=== PATIENT | female | born 1950 | race Caucasian/White ===

== ENCOUNTER 2024-09-10 12:55 | Inpatient (IN) | payer OTHER, SELFPAY ==
[2024-09-10] VITALS (9 sets, daily range): BP systolic 116–153; BP diastolic 46–72; PULSE 69–82; RESP 16–19; TEMP 36.7–37.3; O2SAT 97–100; BMI 32.3
--- NOTE | ~2024-09-10 | CT_ITS ---
EXAMINATION: CT HEAD WITHOUT CONTRAST CLINICAL INFORMATION: trauma, hit head 4 days ago, on anticoagulation COMPARISON: None available. TECHNIQUE: Contiguous axial imaging was performed from the skull base to vertex without intravenous administration of contrast. This CT examination was performed using dose optimization techniques as appropriate, variously including the following: *Automated exposure control *Adjustment of mA and/or kV according to patient size (this includes techniques or standardized protocols for targeted exams where dose is matched to indication/reason for exam; i.e. extremities or head) *Use of iterative reconstruction technique DLP: 558.69 mGy-cm FINDINGS: Bony calvarium is intact. Traumatic deformity of the left zygomatic arch. Skull base is intact. No acute intracranial hemorrhage, mass effect, midline shift, hydrocephalus or herniation. Ardon-white matter differentiation is normal. Prominence of the extra-axial spaces spaces cerebral sulci and ventricles likely central volume loss. Bilateral multifocal patchy and confluent deep periventricular white matter hypodensities involving mostly the supratentorial compartment. Sellar/suprasellar region demonstrated no gross masses. Craniocervical junction is intact and normal. Intracranial vascular calcifications. No air-fluid levels in the included paranasal sinuses. Tympanic cavities and mastoid air cells are aerated. High riding internal jugular bulb, right-sided. CT/CT head/brain wo IV con IMPRESSION: No acute fracture, bony calvarium. No acute intracranial hemorrhage. Probable small vessel occlusive disease. Electronically signed by: Dom Espinal MD 09/10/2024 03:28 PM [facility]
--- NOTE | ~2024-09-10 | XR_ITS ---
EXAMINATION: XR CHEST CLINICAL INFORMATION: fall, left sided pain COMPARISON: None available. TECHNIQUE: 2 views of the chest were obtained. FINDINGS: No consolidation, pleural effusion or pneumothorax. Pulmonary reticular pattern. Cardiomediastinal silhouette is normal in size. Vascular clips in the lateral right breast shadow. Multilevel thoracic stenosis. XR/XR chest 2V IMPRESSION: No acute airspace disease. Probable right lumpectomy Electronically signed by: Dom Espinal MD 09/10/2024 03:18 PM EST
--- NOTE | ~2024-09-10 | XR_ITS ---
EXAMINATION: XR FOOT, RIGHT CLINICAL INFORMATION: pain at toes COMPARISON: None available. TECHNIQUE: AP, lateral, and oblique views of the right foot. FINDINGS: Cortical irregularity and disruption involving the tip of the proximal phalanges in the second and third toes. The metatarsals and tarsal bones are intact. The calcaneus is intact. The patellar bone is intact. The first toe phalanges are intact. XR/XR foot RT min 3V IMPRESSION: Comminuted displaced fractures tip of the proximal phalanges in the second and third toes. Electronically signed by: Dom Espinal MD 09/10/2024 03:21 PM [facility]
--- NOTE | ~2024-09-10 | CT_ITS ---
EXAMINATION: CT ABDOMEN AND PELVIS WITH CONTRAST CLINICAL INFORMATION: Bruising on left side COMPARISON: None available. TECHNIQUE: Multidetector volumetric images were obtained from the superior aspect of the liver through the pubic symphysis following administration 85 mL of Omnipaque 350 intravenous contrast. Sagittal and coronal reformatted images were obtained on the technologist's workstation. Oral contrast: No This CT examination was performed using dose optimization techniques as appropriate, variously including the following: *Automated exposure control *Adjustment of mA and/or kV according to patient size (this includes techniques or standardized protocols for targeted exams where dose is matched to indication/reason for exam; i.e. extremities or head) *Use of iterative reconstruction technique DLP: 711.33 mGy-cm FINDINGS: LUNG BASES: The visualized lung bases are unremarkable. LIVER, GALLBLADDER, AND BILIARY TREE: The liver is normal in size, shape, and attenuation. No mild diffuse intrahepatic bile duct dilation. The common bile duct measures up to 1 cm. The gallbladder is surgically absent. PANCREAS: Unremarkable. SPLEEN: Unremarkable. ADRENAL GLANDS: Unremarkable. KIDNEYS AND URETERS: The kidneys are normal in size, shape, and attenuation. No hydronephrosis, hydroureter, or calculi seen. No perinephric stranding. BLADDER: Unremarkable. GASTROINTESTINAL TRACT: Severe colonic diverticulosis. No evidence of diverticulitis. Moderate stool burden. The large and small bowel are normal in caliber. ABDOMINAL WALL: Left flank hematoma measuring 12.7 x 6.3 x 8.3. Focus of contrast enhancement within the deep portion of the hematoma. Nerve stimulator in place in the right flank. LYMPH NODES: Normal. VASCULAR: Unremarkable. PELVIC VISCERA: Small volume of reactive fluid layering in the pelvis. OSSEOUS STRUCTURES: Unremarkable. CT/CT abdomen pelvis w IV con IMPRESSION: 1. Left flank hematoma measuring up to 12.7 cm. Focus of contrast enhancement within the deep portion of the hematoma concerning for active bleeding. 2. Mild diffuse intrahepatic bile duct dilation. The common bile duct measures up to 1 cm. This may be secondary to postcholecystectomy state. Correlate with liver function tests. Fleischner guidelines were followed. Electronically signed by: Cale Brooks MD 09/10/2024 03:47 PM [facility] Workstation: [id number]
--- NOTE | ~2024-09-10 | XR_ITS ---
EXAMINATION: XR SHOULDER, LEFT CLINICAL INFORMATION: pain after fall COMPARISON: None available. TECHNIQUE: AP external rotation, Grashey, scapular Y, and axillary views of the left shoulder. FINDINGS: No acute cortical disruption or gross malalignment. No lytic or blastic lesions. Osteopenia versus osteoporosis. Calcification at the supraspinatus tendon insertion. Metallic plate overlapping the lower cervical spine no fully included.. XR/XR shoulder LT min 2V IMPRESSION: No acute fracture or dislocation. Tendinosis versus tendinopathy, supraspinatus. Electronically signed by: Dom Espinal MD 09/10/2024 03:22 PM EST
--- NOTE | 2024-09-10 12:54 | ED.GENADULT ---
HPI - General Adult General Chief complaint: Fall Stated complaint: FALL DOWN STAIRS 5DA,DIZZY,LUE,R TOE PAIN PER EMS History of Present Illness ED Provider: Dimitri BLOOD narrative: The patient is a 73-year-old woman. She is on apixaban because of a history of atrial fibrillation. She says that 4 days ago on Sunday she fell down some stairs. She hit her head and injured the left side of her back and also injured the toes of her right foot. She did not seek medical attention immediately. She hoped that she was not significantly injured. She stated home but today she felt that the amount of bruising she was experiencing, especially on her abdomen and back, was very impressive and she ultimately called an ambulance and was brought to the hospital. The patient does not have any old records at this hospital. She says that she used to live in [place] and went to [facility]. A few months ago she moved to the [facility] in [place]. That is why she comes to this hospital today. Related Data Allergies Allergy/AdvReac Type Severity Reaction Status Date / Time No Known Allergies Allergy Verified 09/10/24 13:16 Review of Systems Review of Systems: Yes all other systems are reviewed and are negative [facility] Past Medical History Medical History (Updated 09/10/24 @ 16:54 by Shlomo Fleming MD) Paroxysmal atrial flutter Social History Social History Smoked in Last 30 Days: No Substance Use Type: Marijuana Substance Use Frequency: Occasionally Advance Directives: No Advance Directives Information Provided: Yes Do you have a plan to hurt others: No Plan Physical Exam ED Vital Signs: Vital Signs - 24 hr 09/10/24 13:07 Temperature 98.6 F Pulse Rate 81 Respiratory Rate 16 Blood Pressure 123/52 L Pulse Oximetry 98 Oxygen Delivery Method Nasal Cannula BMI result Body Mass Index 32.3 Const Other: The patient is an older woman who was awake and alert. She is pleasant and cooperative. She looks as if she is somewhat uncomfortable but she does not seem acutely toxic. HENMT Other: No obvious signs of trauma to the head or the face. No raccoon eyes. No gauthier sign. Eyes General: appearance normal, both eyes and all related structures Neck Other: No posterior midline C-spine tenderness. She moves her neck with a good range of motion without pain. Her C-spine is clinically clear. Chest Other: No crepitus or subcutaneous emphysema to the left chest wall. Resp Effort & Inspection: normal respiratory effort Auscultation: clear to auscultation bilaterally Cardio Rate: regular rate Rhythm: regular rhythm Heart sounds: S1 normal heart sound present and S2 normal heart sound present GI Other: The abdomen is soft and does not seem tender but there is a great deal of bruising in firmness to the tissues of the left flank where she is quite tender. Back/Spine/Pelvis Other: There is a very large area of ecchymosis and bruising in the left flank area where the soft tissues seem quite firm and tender Skin Other: There are a lot of ecchymotic skin changes over a large area of the left flank. Neuro Other: The patient is awake and alert with a normal mental status. Face is symmetrical. Speech is clear. She moves her extremities symmetrically and appropriately. Extrem Other: The patient has some pain of the left shoulder but I can put her shoulder through a fairly good range of motion without apparent discomfort. There is no deformity. The patient is also complaining of pain to the toes of the right foot. She is complaining mostly of the 2nd and 3rd toe. She is tender. They are mildly swollen. No gross deformity. Medications Administered Discontinued Medications Generic Name Dose Route Start Last Admin Trade Name Freq PRN Reason Stop Dose Admin Prothrombin Complex Concent ( 80 mls @ 480 mls/hr 09/10/24 16:19 09/10/24 17:03 Human) 2,000 unit/ IV IV 09/10/24 16:28 480 mls/hr Miscellaneous Supplies .Q10M ONE Administration Iohexol 100 ml 09/10/24 15:24 09/10/24 15:24 Iohexol 350 Mg/Ml 100 Ml Infus..Btl IV 09/10/24 15:25 85 ml ONCE ONE Administration Tramadol HCl 50 mg 09/10/24 13:44 09/10/24 13:50 Tramadol Hcl 50 Mg Tablet PO 09/10/24 13:45 50 mg ONCE ONE Administration Medical Decision Making Medical Decision Making MDM Narrative: The patient is a 73-year-old woman on apixaban for paroxysmal atrial fibrillation who fell down approximately 12 or 13 steps 4 days ago on Sunday night at her daughter's house. She did not seek medical attention. She had pains, mostly on her left flank, but she was hoping they would get better. Today she came to the hospital because her pains were getting worse rather than better. She is on apixaban and she took her last dose this morning. She has a great deal of bruising in the region of the left flank. She has some tenderness to the right 2nd and 3rd toes. She has some left shoulder pain but moves the shoulder quite well. She says that she hit her head but has a normal mental status. Her C-spine is clinically clear. CT of the head is negative. Chest x-ray is negative. Left shoulder x-ray shows no acute finding. X-rays of the right foot show fractures of the distal ends of the proximal phalanges of the 2nd and 3rd toes. CT scan of the abdomen and pelvis shows a large left flank hematoma with a question of possible small ongoing bleeding. The patient's hemoglobin today is 7.2. We have no old values in our system for comparison. [facility] apparently measured a hemoglobin of 14 in January. With regard to the question of ongoing bleeding in the left flank hematoma I spoke to Dr. Ho Scales of Interventional Radiology who felt that the finding was very small and would therefore not be amenable to angiographic treatment. Recommendation was for conservative treatment. The patient will be given Kcentra to reverse her apixaban affect. Given the drop in hemoglobin I have ordered 2 units of PRBCs. The patient has remained hemodynamically stable and nontoxic. I do not think there is an acute intervention of significant utility for her toe fractures. She will be admitted to the hospitalist service for further care. Lab Data 09/10/24 16:52 09/10/24 13:43 Labs: Lab Results 09/10/24 09/10/24 Range/Units 13:43 13:57 WBC 3.4 L (4.8-10.8) X10*3/uL RBC 2.40 L (4.20-5.50) X10*6/uL Hgb 7.2 L (12.0-16.0) g/dl Hct 21.9 L (37.0-47.0) % MCV 91.3 (80.0-98.0) fL MCH 30.0 (27.0-33.0) pg MCHC 32.9 (31.0-35.0) g/dl RDW 13.8 (11.0-16.0) % Plt Count 127 L (160-400) X10*3/uL MPV 10.7 (9.4-12.3) fL Immature Gran % (Auto) 0.9 H (0.0-0.4) % Neut % (Auto) 73.7 H (45-73) % Lymph % (Auto) 14.2 L (20-40) % [place] % (Auto) 8.8 (2-11) % Eos % (Auto) 2.1 (0-4) % Baso % (Auto) 0.3 (0-2) % Lymph # (Auto) 0.5 L (1.2-4.9) X10*3/uL [place] # (Auto) 0.3 (0.1-1.2) X10*3/uL Eos # (Auto) 0.1 (0.0-0.4) X10*3/uL Baso # (Auto) 0.0 (0.0-0.2) X10*3/uL Abs Immat Gran (auto) 0.03 (0.00-0.03) X10*3/uL Absolute Neuts (auto) 2.5 (2.0-8.3) x10*3/uL Absolute Nucleated RBC 0.000 (0.0-0.012) X10*3/uL Nucleated RBC % (auto) 0.0 (0.0-0.2) /100WBC Sodium 144 (135-145) mmol/L Potassium 3.6 (3.3-5.1) mmol/L Chloride 111 H (96-108) mmol/L Carbon Dioxide 27 (22-29) mmol/L Anion Gap 10 L (12-20) BUN 14 (9-16) mg/dL Creatinine 0.78 (0.5-1.4) mg/dL Estim Creat Clear Calc 71.7 Estimated GFR > 60 Random Glucose 139 H (60-115) mg/dL Calcium 8.7 (8.4-10.2) mg/dL Total Bilirubin 0.9 (0.0-1.0) mg/dL Direct Bilirubin 0.4 (0.0-0.5) mg/dL AST 33 H (5-31) U/L ALT 25 (0-31) U/L Alkaline Phosphatase 65 (39-117) U/L Total Protein 5.7 L (6.5-8.0) g/dL Albumin 3.4 L (3.5-5.0) g/dL Lipase 15 (8-78) U/L Urine Color Yellow Urine Appearance Clear Urine pH 6.0 (5.0-9.0) Ur Specific [place] 1.010 (1.005-1.025) Urine Protein Negative (Neg-Trace) mg/dL Urine Glucose (UA) Negative (Negative) mg/dL Urine Ketones Negative (Negative) mg/dL Urine Blood Negative (Negative) Urine Nitrite Negative (Negative) Ur Leukocyte Esterase Small (1+) H (Negative) Urine RBC 0-2 (0-2) /HPF Urine WBC 0-5 (0-5) /HPF Ur Squamous Epith Cells 0-2 (0-2) /HPF Urine Bacteria None Seen (None Seen) Hyaline Casts 0-2 (0-2) /LPF Ethyl Alcohol < 10 mg/dL Discharge Plan Discharge Clinical Impression: Hematoma of left flank, Acute blood loss anemia, Toe fracture, right Patient Disposition: Admitted As Inpatient
--- NOTE | 2024-09-10 13:18 | ECG_ITS ---
Test Reason : FALL Blood Pressure : / mmHG Vent. Rate : 073 BPM Atrial Rate : 073 BPM P-R Int : 142 ms QRS Dur : 084 ms QT Int : 422 ms P-R-T Axes : 053 063 036 degrees QTc Int : 464 ms Normal sinus rhythm Normal ECG No previous ECGs available Referred By: Sky Mosley Electronically Signed By:Tiburcio Clemons
[2024-09-10 13:47] LABS: MANUAL DIFF FLAG NO
[2024-09-10 13:48] LABS: Basophils Percent Auto 0.3 % (0-2); Eosinophils Absolute Auto 0.1 X10*3/uL (0.0-0.4); Eosinophils Percent Auto 2.1 % (0-4); Hematocrit 21.9 % (37.0-47.0); Hemoglobin 7.2 g/dl (12.0-16.0); Imm Gran Abs Auto 0.03 X10*3/uL (0.00-0.03); Imm Gran Pct Auto 0.9 % (0.0-0.4); Lymphocytes Absolute Auto 0.5 X10*3/uL (1.2-4.9); Lymphocytes Percent Auto 14.2 % (20-40); Mean Corpuscular HGB Conc 32.9 g/dl (31.0-35.0); Mean Corpuscular Volume 91.3 fL (80.0-98.0); Mean Platelet Volume 10.7 fL (9.4-12.3); Monocytes Absolute Auto 0.3 X10*3/uL (0.1-1.2); Monocytes Percent Auto 8.8 % (2-11); Neutrophils Absolute Auto 2.5 x10*3/uL (2.0-8.3); Neutrophils Percent Auto 73.7 % (45-73); Platelet Count 127 X10*3/uL (160-400); Red Cell Distribution Width 13.8 % (11.0-16.0); White Blood Count 3.4 X10*3/uL (4.8-10.8)
[2024-09-10] MEDS: traMADoL HCL 50 MG TABLET PO (13:50)
[2024-09-10 14:02] LABS: Ethanol < 10 mg/dL
[2024-09-10 14:04] LABS: Appearance Urine Clear; Color Urine Yellow; Glucose Urine UA Negative (Negative); Leukocyte Esterase Urine Small (1+) (Negative); Nitrite Urine Negative (Negative); UMIC TRIGGER UACC YES; Urine Blood Negative (Negative); Urine Ketones Negative (Negative); Urine Protein Negative (Neg-Trace)
[2024-09-10 14:04] LABS: Alanine Aminotransferase 25 U/L (0-31); Albumin Level 3.4 g/dL (3.5-5.0); Alkaline Phosphatase 65 U/L (39-117); Anion Gap 10 (12-20); Aspartate Amino Transferase 33 U/L (5-31); Bilirubin Direct 0.4 mg/dL (0.0-0.5); Bilirubin Total 0.9 mg/dL (0.0-1.0); Blood Urea Nitrogen 14 mg/dL (9-16); Calcium 8.7 mg/dL (8.4-10.2); Carbon Dioxide 27 mmol/L (22-29); Chloride 111 mmol/L (96-108); Creatinine Clr Calc Pharmacy 71.7; Estimated Glomerular Filt Rate > 60; Glucose Random 139 mg/dL (60-115); Lipase 15 U/L (8-78); Potassium 3.6 mmol/L (3.3-5.1); Sodium 144 mmol/L (135-145); Total Protein 5.7 g/dL (6.5-8.0)
[2024-09-10 14:16] LABS: Bacteria Urine None Seen (None Seen); Hyaline Casts Urine 0-2 /LPF (0-2); RBC Urine 0-2 /HPF (0-2); Squamous Epithelial Cell Urine 0-2 /HPF (0-2); UACC Culture Trigger YES; WBC Urine 0-5 /HPF (0-5)
[2024-09-10] MEDS: iohexoL 350 MG/ML 100 ML INFUS..BTL IV (15:24)
--- NOTE | 2024-09-10 16:47 | PM.IMHP ---
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 Patient states that she fell downstairs due to mechanical fall, did not lose consciousness but did hit her head and left side of her back and her right foot. Patient did not seek medical attention right away because she felt she was okay but then when she had worsening ecchymosis decided to come to the hospital. In ED found to have significant drop in hemoglobin of 7.2 from a normal baseline. CT abdomen revealed 12 cm left flank hematoma. CT head was negative. X-ray of the right foot showed comminuted displaced fractures of the tips of the proximal phalanges and 2nd and 3rd toes Review of Systems Review of Systems: Yes all other systems are reviewed and are negative [facility] Medical History (Updated 09/10/24 @ 16:54 by Shlomo Fleming MD) Paroxysmal atrial flutter Social History Patient Tobacco Use Status: Never used Tobacco Smoked in Last 30 Days: No Substance Use Type: Marijuana Substance Use Frequency: Occasionally Advance Directives: No Advance Directives Information Provided: Yes Do you have a plan to hurt others: No Plan Nutrition Risks: No Nutritional Risk Meds Allergies Allergy/AdvReac Type Severity Reaction Status Date / Time No Known Allergies Allergy Verified 09/10/24 13:16 Home Medications ?Medication ?Instructions ?Recorded ?Confirmed ?Last Taken ?Type acetaminophen 325 mg tablet 650 mg PO Q4H PRN Fever Or Pain 09/10/24 09/10/24 Unknown History amlodipine 5 mg tablet 5 mg PO DAILY 09/10/24 09/10/24 Unknown History apixaban 5 mg tablet (Eliquis) 5 mg PO BID 09/10/24 09/10/24 Unknown History atorvastatin 80 mg tablet 80 mg PO DAILY 09/10/24 09/10/24 Unknown History benztropine 0.5 mg tablet 0.5 mg PO DAILY 09/10/24 09/10/24 Unknown History carbidopa 25 mg-levodopa 100 mg 1 tab PO BID 09/10/24 09/10/24 Unknown History tablet clonazepam 0.5 mg tablet 0.5 mg PO BID 09/10/24 09/10/24 Unknown History escitalopram oxalate 10 mg tablet 10 mg PO DAILY 09/10/24 09/10/24 Unknown History escitalopram oxalate 5 mg tablet 5 mg PO DAILY 09/10/24 09/10/24 Unknown History latanoprost 0.005 % eye drops 1 drp ophthalmic (eye) BEDTIME 09/10/24 09/10/24 Unknown History melatonin 3 mg tablet 9 mg PO BEDTIME 09/10/24 09/10/24 Unknown History metoclopramide HCl 5 mg tablet 5 mg PO Q6H PRN GI upset 09/10/24 09/10/24 Unknown History metoprolol succinate 25 mg 25 mg PO DAILY 09/10/24 09/10/24 Unknown History tablet,extended release 24 hr mirtazapine 15 mg tablet 15 mg PO BEDTIME 09/10/24 09/10/24 Unknown History olanzapine 5 mg tablet 5 mg PO BEDTIME 09/10/24 09/10/24 Unknown History ondansetron HCl 4 mg tablet 4 mg PO Q6H PRN Nausea And Vomiting 09/10/24 09/10/24 Unknown History pantoprazole 20 mg tablet,delayed 20 mg PO DAILY@0630 09/10/24 09/10/24 Unknown History release polyethylene glycol 3350 17 17 g PO DAILY 09/10/24 09/10/24 Unknown History gram/dose oral powder (Miralax) sucralfate 1 gram tablet 1 g PO QID 09/10/24 09/10/24 Unknown History Physical Exam Vital Signs and Narrative: Vital Signs: Last Vital Signs Temp 98.6 F 09/10/24 13:07 Pulse 81 09/10/24 13:07 Resp 16 09/10/24 13:07 BP 123/52 L 09/10/24 13:07 Pulse Ox 98 09/10/24 13:07 O2 Del Method Nasal Cannula 09/10/24 13:07 BMI result Body Mass Index 32.3 General: AO X 3, no acute distress Resp: CTA bilateral, no accessory muscles used CVS: S1,S2,RRR GI: soft, non tender, non distended Neuro: motor grossly intact, alert Psych: appropriate affect, appropriate insight left side echymosis Results Labs 09/10/24 16:52 09/10/24 13:43 Labs: Laboratory Results - last 24 hr 09/10/24 09/10/24 13:43 13:57 MCV 91.3 MCH 30.0 MCHC 32.9 RDW 13.8 Plt Count 127 L MPV 10.7 Immature Gran % (Auto) 0.9 H Neut % (Auto) 73.7 H Lymph % (Auto) 14.2 L [place] % (Auto) 8.8 Eos % (Auto) 2.1 Baso % (Auto) 0.3 Lymph # (Auto) 0.5 L [place] # (Auto) 0.3 Eos # (Auto) 0.1 Baso # (Auto) 0.0 Abs Immat Gran (auto) 0.03 Absolute Neuts (auto) 2.5 Absolute Nucleated RBC 0.000 Nucleated RBC % (auto) 0.0 Anion Gap 10 L Estim Creat Clear Calc 71.7 Estimated GFR > 60 Random Glucose 139 H Calcium 8.7 Total Bilirubin 0.9 Direct Bilirubin 0.4 AST 33 H ALT 25 Alkaline Phosphatase 65 Total Protein 5.7 L Albumin 3.4 L Lipase 15 Urine Color Yellow Urine Appearance Clear Urine pH 6.0 Ur Specific [place] 1.010 Urine Protein Negative Urine Glucose (UA) Negative Urine Ketones Negative Urine Blood Negative Urine Nitrite Negative Ur Leukocyte Esterase Small (1+) H Urine RBC 0-2 Urine WBC 0-5 Ur Squamous Epith Cells 0-2 Urine Bacteria None Seen Hyaline Casts 0-2 Ethyl Alcohol < 10 Imaging Radiologist's Impressions: Impressions Foot X-Ray 09/10/24 13:23 IMPRESSION: Comminuted displaced fractures tip of the proximal phalanges in the second and third toes. Electronically signed by: Dom Espinal MD 09/10/2024 03:21 PM EST RP Shoulder X-Ray 09/10/24 13:23 IMPRESSION: No acute fracture or dislocation. Tendinosis versus tendinopathy, supraspinatus. Electronically signed by: Dom Espinal MD 09/10/2024 03:22 PM EST RP Abdomen/Pelvis CT 09/10/24 13:24 IMPRESSION: 1. Left flank hematoma measuring up to 12.7 cm. Focus of contrast enhancement within the deep portion of the hematoma concerning for active bleeding. 2. Mild diffuse intrahepatic bile duct dilation. The common bile duct measures up to 1 cm. This may be secondary to postcholecystectomy state. Correlate with liver function tests. Fleischner guidelines were followed. Electronically signed by: Cale Brooks MD 09/10/2024 03:47 PM EST RP Chest X-Ray 09/10/24 14:10 IMPRESSION: No acute airspace disease. Probable right lumpectomy Electronically signed by: Dom Espinal MD 09/10/2024 03:18 PM EST RP Head CT 09/10/24 14:54 IMPRESSION: No acute fracture, bony calvarium. No acute intracranial hemorrhage. Probable small vessel occlusive disease. 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, non obstructive CAD, TIA, HTN, parkinsons, COPD presented with left flank echymosis s/p fall 4 days prior to presentation Acute blood loss anemia due to left flank hematoma from mechanical fall in a patient on Eliquis 2 units PRBC, Kcentra Monitor hemoglobin PT hold eliquis history of tia continue statin, hold eliquis copd stable parkinsons sinemet htn amlodipine compensated hcv cirrhosis stable, outpatient follow up dvt prophlyaxis - mechanical due to bleed DNR/DNI patient with significant bleed requiring transfusions and atleast 2 midnights inpatient monitoring for further bleeding Quality Stroke Does the patient have a stroke diagnosis?: No VTE Prior VTE?: No VTE Risk Level:: Medical - moderate - high VTE Device Contraindication: N/A - Device Ordered VTE Drug Contraindication: Treatment Not Tolerated
[2024-09-10 16:57] LABS: Hematocrit 25.2 % (37.0-47.0); Hemoglobin 8.2 g/dl (12.0-16.0); Mean Corpuscular HGB Conc 32.5 g/dl (31.0-35.0); Mean Corpuscular Hemoglobin 29.7 pg (27.0-33.0); Mean Corpuscular Volume 91.3 fL (80.0-98.0); Mean Platelet Volume 10.9 fL (9.4-12.3); Platelet Count 137 X10*3/uL (160-400); Red Blood Count 2.76 X10*6/uL (4.20-5.50); Red Cell Distribution Width 13.8 % (11.0-16.0); White Blood Count 3.7 X10*3/uL (4.8-10.8)
[2024-09-10] MEDS: Hum Prothrombin Cplx(PCC)4Fact 2,000 UNIT in Container,Empty 0 ML 480 UNIT IV (17:03)
--- NOTE | 2024-09-10 19:00 | PC.NURSE ---
Consent not done by provider, Dr. Fleming to come to sign w/ patient on his way out.
--- NOTE | 2024-09-10 19:23 | PHA.MEDREC ---
Addendum entered by Ho Ramirez RPh 09/10/24 19:34: Med rec reviewed Original Note: Pharmacy Consult ? Medication Reconciliation Pharmacy has completed the medication reconciliation. Utilized list from [facility] to confirm med list.
[2024-09-10] MEDS: Acetaminophen 325 MG TABLET 650 MG PO (19:44)
[2024-09-10] MEDS: Sucralfate 1 GM TABLET PO (21:22)
[2024-09-10] MEDS: Carbidopa/Levodopa 25/100 TABLET 1 TAB PO (21:22)
[2024-09-10] MEDS: Mirtazapine 15 MG TABLET PO (21:22)
[2024-09-10] MEDS: OLANZapine 5 MG TABLET PO (21:22)
[2024-09-10] MEDS: clonazePAM 0.5 MG TABLET PO (21:22)
--- NOTE | 2024-09-10 23:08 | PC.NURSE ---
assumed care of pt at 2300.
[2024-09-11 00:39] VITALS: BP 145/59; PULSE 75; RESP 17; TEMP 36.6
--- NOTE | 2024-09-11 01:30 | PC.NURSE ---
pt ambulates to and from bathroom with one staff nearby assist, steady gait. placed into hospital bed, on solution advisor, A&Ox3, answers all questions appropriately. in no apparent distress, denies any acute complaints or pain. plan of care ongoing.
[2024-09-11 03:41] VITALS: BP 128/55; PULSE 67; RESP 18; O2SAT 95
[2024-09-11 05:12] LABS: Hematocrit 31.1 % (37.0-47.0); Hemoglobin 10.7 g/dl (12.0-16.0); Mean Corpuscular HGB Conc 34.4 g/dl (31.0-35.0); Mean Corpuscular Hemoglobin 30.1 pg (27.0-33.0); Mean Corpuscular Volume 87.6 fL (80.0-98.0); Mean Platelet Volume 10.8 fL (9.4-12.3); Platelet Count 144 X10*3/uL (160-400); Red Blood Count 3.55 X10*6/uL (4.20-5.50); Red Cell Distribution Width 13.8 % (11.0-16.0); White Blood Count 4.2 X10*3/uL (4.8-10.8)
[2024-09-11 05:25] LABS: Anion Gap 14 (12-20); Blood Urea Nitrogen 9 mg/dL (9-16); Calcium 8.8 mg/dL (8.4-10.2); Carbon Dioxide 24 mmol/L (22-29); Chloride 111 mmol/L (96-108); Creatinine Clr Calc Pharmacy 76.7; Estimated Glomerular Filt Rate > 60; Glucose Fasting 91 mg/dL (60-99); Potassium 3.6 mmol/L (3.3-5.1); Sodium 145 mmol/L (135-145)
[2024-09-11] MEDS: Escitalopram Oxalate 5 MG TABLET PO (08:07)
[2024-09-11 08:08] VITALS: BP 131/69; PULSE 80
[2024-09-11] MEDS: Escitalopram Oxalate 10 MG TABLET PO (08:08)
[2024-09-11] MEDS: Metoprolol Succinate ER 25 MG TAB.ER.24H PO (08:08)
[2024-09-11] MEDS: Omeprazole 20 MG CAPSULE.DR PO (08:08)
[2024-09-11] MEDS: Sucralfate 1 GM TABLET PO (08:08)
[2024-09-11] MEDS: clonazePAM 0.5 MG TABLET PO (08:08)
[2024-09-11] MEDS: Benztropine Mesylate 0.5 MG TABLET PO (08:09)
[2024-09-11 08:10] VITALS: BP 131/62
[2024-09-11] MEDS: amLODIPine Besylate 5 MG TABLET PO (08:10)
[2024-09-11] MEDS: Atorvastatin Calcium 80 MG TABLET PO (08:10)
[2024-09-11] MEDS: Acetaminophen 325 MG TABLET 650 MG PO (08:10)
[2024-09-11] MEDS: Carbidopa/Levodopa 25/100 TABLET 1 TAB PO (08:10)
[2024-09-11] MEDS: 0.9 % Sodium Chloride Flush 3 ML SYRINGE IVFLUSH (08:11)
--- NOTE | 2024-09-11 09:04 | P.DS_ITS ---
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 Patient states that she fell downstairs due to mechanical fall, did not lose consciousness but did hit her head and left side of her back and her right foot. Patient did not seek medical attention right away because she felt she was okay but then when she had worsening ecchymosis decided to come to the hospital. In ED found to have si gnificant drop in hemoglobin of 7.2 from a normal baseline. CT abdomen revealed 12 cm left flank hematoma. CT head was negative. X-ray of the right foot showed comminuted displaced fractures of the tips of the proximal phalanges and 2nd and 3rd toes hospital course: Patient was admitted for acute blood loss anemia due to left flank hematoma for mechanical fall in a patient on Eliquis. She was given 2 units of packed RBCs and Kcentra. Her hemoglobin improved appropriately from about 7 to about 10. Her Eliquis was held and will be continued to be held for about 2 weeks. She should have her labs checked in about 1 week. Patient was able to ambulate without assistance. For history of TIA we will continue statin and hold Eliquis as mentioned. For COPD she remained stable. For Parkinson's she was continued on Sinemet. For hypertension she was continued on amlodipine for HCV cirrhosis she remains compensated. Patient stabilized faster than expected and preferred to do further monitoring in the home setting. Time Attestation Discharge Coordination Time (in mins): 32 Quality: Safe Use of Opioids Does Pt have an Active Cancer Diagnosis on the Problem List?: No Quality: Stroke Does the patient have a stroke diagnosis?: No Physical Exam Vital Signs: Vital Signs: Last Vital Signs Temp 97.9 F 09/11/24 00:39 Pulse 80 09/11/24 08:08 Resp 18 09/11/24 03:41 BP 131/62 09/11/24 08:10 Pulse Ox 95 09/11/24 03:41 O2 Del Method Room Air 09/11/24 03:41 BMI result Body Mass Index 32.3 General: AO X 3, no acute distress Resp: CTA bilateral, no accessory muscles used CVS: S1,S2,RRR GI: soft, non tender, non distended Neuro: motor grossly intact, alert Psych: appropriate affect, appropriate insight left side echymosis DS: Data Data Completed and Pending Labs on day of discharge: Laboratory Results - last 24 hr 09/10/24 09/10/24 09/10/24 13:43 13:57 16:52 WBC 3.4 L 3.7 L RBC 2.40 L 2.76 L Hgb 7.2 L 8.2 L Hct 21.9 L 25.2 L MCV 91.3 91.3 MCH 30.0 29.7 MCHC 32.9 32.5 RDW 13.8 13.8 Plt Count 127 L 137 L MPV 10.7 10.9 Immature Gran % (Auto) 0.9 H Neut % (Auto) 73.7 H Lymph % (Auto) 14.2 L [place] % (Auto) 8.8 Eos % (Auto) 2.1 Baso % (Auto) 0.3 Lymph # (Auto) 0.5 L [place] # (Auto) 0.3 Eos # (Auto) 0.1 Baso # (Auto) 0.0 Abs Immat Gran (auto) 0.03 Absolute Neuts (auto) 2.5 Absolute Nucleated RBC 0.000 0.000 Nucleated RBC % (auto) 0.0 0.0 Sodium 144 Potassium 3.6 Chloride 111 H Carbon Dioxide 27 Anion Gap 10 L BUN 14 Creatinine 0.78 Estim Creat Clear Calc 71.7 Estimated GFR > 60 Random Glucose 139 H Fasting Glucose Calcium 8.7 Total Bilirubin 0.9 Direct Bilirubin 0.4 AST 33 H ALT 25 Alkaline Phosphatase 65 Total Protein 5.7 L Albumin 3.4 L Lipase 15 Urine Color Yellow Urine Appearance Clear Urine pH 6.0 Ur Specific [place] 1.010 Urine Protein Negative Urine Glucose (UA) Negative Urine Ketones Negative Urine Blood Negative Urine Nitrite Negative Ur Leukocyte Esterase Small (1+) H Urine RBC 0-2 Urine WBC 0-5 Ur Squamous Epith Cells 0-2 Urine Bacteria None Seen Hyaline Casts 0-2 Ethyl Alcohol < 10 Blood Type B Negative Antibody Screen NEGATIVE Crossmatch See Detail 12/05/24 04:44 WBC 4.2 L RBC 3.55 L D Hgb 10.7 L D Hct 31.1 L D MCV 87.6 MCH 30.1 MCHC 34.4 RDW 13.8 Plt Count 144 L MPV 10.8 Immature Gran % (Auto) Neut % (Auto) Lymph % (Auto) [place] % (Auto) Eos % (Auto) Baso % (Auto) Lymph # (Auto) [place] # (Auto) Eos # (Auto) Baso # (Auto) Abs Immat Gran (auto) Absolute Neuts (auto) Absolute Nucleated RBC 0.000 Nucleated RBC % (auto) 0.0 Sodium 145 Potassium 3.6 Chloride 111 H Carbon Dioxide 24 Anion Gap 14 BUN 9 Creatinine 0.73 Estim Creat Clear Calc 76.7 Estimated GFR > 60 Random Glucose Fasting Glucose 91 Calcium 8.8 Total Bilirubin Direct Bilirubin AST ALT Alkaline Phosphatase Total Protein Albumin Lipase Urine Color Urine Appearance Urine pH Ur Specific [place] Urine Protein Urine Glucose (UA) Urine Ketones Urine Blood Urine Nitrite Ur Leukocyte Esterase Urine RBC Urine WBC Ur Squamous Epith Cells Urine Bacteria Hyaline Casts Ethyl Alcohol Blood Type Antibody Screen Crossmatch Discharge Plan Discharge Anticipated Discharge Date/Time: 09/11/24 08:59 Patient Disposition: Home, Self-Care Discharge Diagnosis: hematoma, anemia Referrals: Jose Roberto Garcia DO [Primary Care Provider] - 1 Week Discharge Medications: Continued latanoprost 0.005 % drops 1 drp ophthalmic (eye) BEDTIME Rx Instructions: Both eyes atorvastatin 80 mg tablet 80 mg PO DAILY acetaminophen 325 mg tablet 650 mg PO Q4H PRN (Reason: Fever Or Pain) benztropine 0.5 mg tablet 0.5 mg PO DAILY sucralfate 1 gram tablet 1 g PO QID ondansetron HCl 4 mg tablet 4 mg PO Q6H PRN (Reason: Nausea And Vomiting) clonazepam 0.5 mg tablet 0.5 mg PO BID olanzapine 5 mg tablet 5 mg PO BEDTIME melatonin 3 mg tablet 9 mg PO BEDTIME amlodipine 5 mg tablet 5 mg PO DAILY pantoprazole 20 mg tablet,delayed release (DR/EC) 20 mg PO DAILY@0630 metoclopramide HCl 5 mg tablet 5 mg PO Q6H PRN (Reason: GI upset) mirtazapine 15 mg tablet 15 mg PO BEDTIME metoprolol succinate 25 mg tablet extended release 24 hr 25 mg PO DAILY polyethylene glycol 3350 [Miralax] 17 gram/dose Powder 17 g PO DAILY Rx Instructions: Mix 17 gm in 8 oz of water carbidopa-levodopa 25-100 mg tablet 1 tab PO BID escitalopram oxalate 10 mg tablet 10 mg PO DAILY Rx Instructions: Take with 5 mg for a total dose =15 mg escitalopram oxalate 5 mg tablet 5 mg PO DAILY Rx Instructions: Take with 10 mg for a total dose =15mg Held Eliquis 5 mg tablet 5 mg PO BID Hold Instructions: Resume on 09/24/24. Discharge Orders: Discharge Order (Routine); Ordered 09/11/24 Ordered By: Shlomo Fleming Diet: Advance to usual diet Activity on Discharge: As tolerated Stand Alone Forms: Patient Portal Discharge page Print Language: Urdu Other Ambulatory Orders: Complete Blood Count no Diff (Routine) Timeframe: 1 Week Facility: [facility] - Location: Laboratory Ordered By: Shlomo Fleming Care Plan Goals: manage hematoma Health Concerns: hematoma Plan of Treatment: stop eliquis for 2 weeks, check blood numbers in about 1 week Assessment: see above
--- NOTE | 2024-09-11 09:55 | MHC.CM.PN ---
PT REPORTS SHE RESIDES AT [facility] SHE IS INDEPENDENT WITH CARE AND USES A WALKER TO AMBULATE HCP AND MOLST ON FILE PCP: [facility] DELIVERED DCP: PT WILL DC HOME TODAY VIA SHUTTLE
[2024-09-11 11:05] VITALS: BP 129/54; PULSE 70; RESP 16; TEMP 37.2; O2SAT 96
[2024-09-11 11:12] VITALS: BP 129/54; PULSE 70; RESP 16; TEMP 37.2; O2SAT 96
== END 2024-09-11 11:10 | disposition home or self-care (01) | DRG 605 ==
LOC: HO.ED 16:52 → HO.EDOVER 17:07 → HO.S3 09-11 09:00 → HO.EDOVER 09-11 09:13
PROVIDERS: Admitting Provider Internal Medicine; Emergency Provider Emergency Medicine; PCP Family Medicine; Visit Provider Internal Medicine
DX: S30.1XXA Contusion of abdominal wall, initial encounter (principal); D62 Acute posthemorrhagic anemia; I48.92 Unspecified atrial flutter; Z86.19 Personal history of other infectious and parasitic diseases; S92.511A Displaced fracture of proximal phalanx of right lesser toe(s), initial encounter for closed fracture; W10.9XXA Fall (on) (from) unspecified stairs and steps, initial encounter; K74.69 Other cirrhosis of liver; I25.10 Atherosclerotic heart disease of native coronary artery without angina pectoris; G20.A1 Parkinson's disease without dyskinesia, without mention of fluctuations; J44.9 Chronic obstructive pulmonary disease, unspecified; Z66 Do not resuscitate; I10 Essential (primary) hypertension; Z86.73 Personal history of transient ischemic attack (TIA), and cerebral infarction without residual deficits; Z79.01 Long term (current) use of anticoagulants; Z79.899 Other long term (current) drug therapy
CPT/HCPCS: 36415; 70450; 71046; 73030; 73630; 74177; 80048; 80076; 80307; 81001; 81003; 83690; 85025; 85027; 86850; 86900; 86901; 86923; 87086; 93005; 99285; J7168; P9016; Q9967

== ENCOUNTER → 2024-09-10 13:18 | Outpatient (BNV) | payer MEDICARE, SELFPAY | PROVIDERS: Emergency Provider Emergency Medicine; PCP Family Medicine; Visit Provider Radiology Diagnostic Radiology | DX: R07.9 Chest pain, unspecified (principal); M25.512 Pain in left shoulder; M25.511 Pain in right shoulder; Z03.89 Encounter for observation for other suspected diseases and conditions ruled out | CPT/HCPCS: 70450; 71046; 73030; 73630 ==

== ENCOUNTER → 2024-09-10 13:18 | Outpatient (BNV) | payer OTHER, SELFPAY | PROVIDERS: Admitting Provider Internal Medicine; Emergency Provider Emergency Medicine; PCP Family Medicine; Visit Provider Internal Medicine Cardiovascular Disease | DX: M25.512 Pain in left shoulder (principal); M79.674 Pain in right toe(s) | CPT/HCPCS: 93010 ==

== ENCOUNTER → 2024-09-10 16:46 | Outpatient (BNV) | payer MEDICARE, SELFPAY | PROVIDERS: Admitting Provider Internal Medicine; Emergency Provider Emergency Medicine; PCP Family Medicine; Visit Provider Internal Medicine | DX: I48.92 Unspecified atrial flutter (principal); D62 Acute posthemorrhagic anemia; S30.1XXA Contusion of abdominal wall, initial encounter; Z79.01 Long term (current) use of anticoagulants | CPT/HCPCS: 99223; 99239 ==

== ENCOUNTER 2024-09-24 10:37 | Emergency (ER) | payer OTHER, SELFPAY ==
[2024-09-24] VITALS (7 sets, daily range): BP systolic 126–144; BP diastolic 50–93; PULSE 66–80; RESP 16–18; TEMP 36.6–37; O2SAT 96–98; BMI 26.6
--- NOTE | ~2024-09-24 | CT_ITS ---
EXAMINATION: CT ABDOMEN AND PELVIS WITHOUT CONTRAST CLINICAL INFORMATION: s/p fall 2 weeks now notice lump LLower back bigge COMPARISON: CT scan abdomen pelvis September 10, 2024 TECHNIQUE: Multidetector volumetric imaging was performed from the superior aspect of the liver through the pubic symphysis. Sagittal and coronal reformatted images were obtained on the technologist's workstation. This CT examination was performed using dose optimization techniques as appropriate, variously including the following: *Automated exposure control *Adjustment of mA and/or kV according to patient size (this includes techniques or standardized protocols for targeted exams where dose is matched to indication/reason for exam; i.e. extremities or head) *Use of iterative reconstruction technique DLP: 492 mGy-cm FINDINGS: LUNG BASES: The visualized lung bases are unremarkable. LIVER, GALLBLADDER, AND BILIARY TREE: The liver is normal in size, shape, and attenuation. No focal hepatic lesion or biliary ductal dilatation is present. Status post cholecystectomy. Chronic dilatation of the extrahepatic bile ducts. PANCREAS: Unremarkable. SPLEEN: Unremarkable. ADRENAL GLANDS: Unremarkable. KIDNEYS AND URETERS: The kidneys are normal in size, shape, and attenuation. No hydronephrosis, hydroureter, or calculi seen. No perinephric stranding. BLADDER: Unremarkable. GASTROINTESTINAL TRACT: There are scattered diverticula of the colon. There is no diverticulitis. There is no bowel wall thickening /edema. There is no bowel obstruction. There is a moderate to large volume of stool in the colon. The appendix is normal . The small bowel loops are unremarkable. The stomach is normal. There is no hiatal hernia. ABDOMINAL WALL: Persistent left flank hematoma is not definitely changed since prior study of September 10, 2024. Measures about 13 cm in length. Nerve stimulator in the right superior gluteal region with catheter extending intrathecally. LYMPH NODES: Normal. VASCULAR: Vascular calcifications of aorta and iliac arteries. No aneurysm. PELVIC VISCERA: Uterus is absent. No pelvic abnormality. OSSEOUS STRUCTURES: Unremarkable. CT/CT abdomen pelvis wo IV con IMPRESSION: 1. Persistent left flank hematoma not definitely changed since prior study of September 10, 2024. 2. Status post cholecystectomy. 3. Diverticulosis of colon. No acute abnormality of the bowel. Fleischner guidelines were followed. Electronically signed by: Jassi Schultz MD 09/24/2024 05:50 PM EST
--- NOTE | 2024-09-24 12:33 | ED.GENADULT ---
HPI - General Adult General Chief complaint: General Medical Stated complaint: LL BACK PAIN FROM REST HOME PER EMS Time Seen by Provider: 09/24/24 12:10 History of Present Illness HPI narrative: Patient is a 73-year-old female with a history of having a large hematoma on the left side requiring transfusion at that time patient was on Eliquis. Since then patient has Eliquis was stopped. He noted the lump has gotten bigger but the bruising has improved. Came to the ED for help. Baseline ambulates. There is no fever no chills. Patient denies any bowel urinary incontinence. Usually use a walker to get around. There is no chest pain there is no shortness of breath there is no diaphoresis. There is no bloody stool. Related Data Home Medications ?Medication ?Instructions ?Recorded ?Confirmed acetaminophen 325 mg tablet 650 mg PO Q4H PRN Fever Or Pain 09/10/24 09/10/24 amlodipine 5 mg tablet 5 mg PO DAILY 09/10/24 09/10/24 apixaban 5 mg tablet (Eliquis) 5 mg PO BID 09/10/24 09/10/24 atorvastatin 80 mg tablet 80 mg PO DAILY 09/10/24 09/10/24 benztropine 0.5 mg tablet 0.5 mg PO DAILY 09/10/24 09/10/24 carbidopa 25 mg-levodopa 100 mg 1 tab PO BID 09/10/24 09/10/24 tablet clonazepam 0.5 mg tablet 0.5 mg PO BID 09/10/24 09/10/24 escitalopram oxalate 10 mg tablet 10 mg PO DAILY 09/10/24 09/10/24 escitalopram oxalate 5 mg tablet 5 mg PO DAILY 09/10/24 09/10/24 latanoprost 0.005 % eye drops 1 drp ophthalmic (eye) BEDTIME 09/10/24 09/10/24 melatonin 3 mg tablet 9 mg PO BEDTIME 09/10/24 09/10/24 metoclopramide HCl 5 mg tablet 5 mg PO Q6H PRN GI upset 09/10/24 09/10/24 metoprolol succinate 25 mg 25 mg PO DAILY 09/10/24 09/10/24 tablet,extended release 24 hr mirtazapine 15 mg tablet 15 mg PO BEDTIME 09/10/24 09/10/24 olanzapine 5 mg tablet 5 mg PO BEDTIME 09/10/24 09/10/24 ondansetron HCl 4 mg tablet 4 mg PO Q6H PRN Nausea And Vomiting 09/10/24 09/10/24 pantoprazole 20 mg tablet,delayed 20 mg PO DAILY@0630 09/10/24 09/10/24 release polyethylene glycol 3350 17 17 g PO DAILY 09/10/24 09/10/24 gram/dose oral powder (Miralax) sucralfate 1 gram tablet 1 g PO QID 09/10/24 09/10/24 Allergies Allergy/AdvReac Type Severity Reaction Status Date / Time amitriptyline Allergy Hives Verified 09/24/24 11:17 meperidine [From Demerol] Allergy Unknown Verified 09/24/24 11:17 Review of Systems Review of Systems: Positive back pain Yes all other systems are reviewed and are negative [facility] Past Medical History Attestation statement: The following information was validated with the patient. Medical History Paroxysmal atrial flutter Social History Social History Patient Tobacco Use Status: Never used Tobacco Substance Use Type: Marijuana Advance Directives: No Advance Directives Information Provided: Yes service: No Physical Exam ED Vital Signs: Vital Signs - 24 hr 09/24/24 10:54 09/24/24 11:13 09/24/24 13:32 Temperature 98.5 F 98.6 F Pulse Rate 78 73 80 Respiratory Rate 16 18 16 Blood Pressure 136/50 L 136/50 L 144/69 H Pulse Oximetry 96 98 97 Oxygen Delivery Method Room Air Room Air Room Air 09/24/24 17:52 Temperature 97.9 F Pulse Rate 66 Respiratory Rate 18 Blood Pressure 126/93 H Pulse Oximetry 97 Oxygen Delivery Method Room Air BMI result Body Mass Index 26.6 Appearance: Alert. Oriented X3. No acute distress. Eyes: Pupils equal, round and reactive to light. ENT: Pharynx normal. Neck: Normal inspection. Neck supple. No lymph nodes noted. No crepitus CVS: Normal heart rate and rhythm. Pulses normal. Normal S1 and S2 Respiratory: No respiratory distress. Breath sounds normal. No Wheezing. No rales Abdomen: Soft and nontender. No rigidity. No distention. good BS x4 examination of the back on the left side there is a large lump. There is no spinal tenderness. Movement of the hips are completely intact. Skin: Skin warm and dry. Normal skin color. Normal skin turgor. Extremities: No lower extremity edema. Neurovascular intact to all extremities. No Lacerations. No Rash Neuro: Oriented X 3. No motor deficit. No sensory deficit. Moving all extermities. No slurred speech Medications Administered Discontinued Medications Generic Name Dose Route Start Last Admin Trade Name Apple PRN Reason Stop Dose Admin Lorazepam 0.5 mg 09/24/24 15:45 09/24/24 16:02 Lorazepam 0.5 Mg Tablet PO 09/24/24 15:46 0.5 mg ONCE ONE Administration Medical Decision Making Medical Decision Making [facility] Narrative: patient presented today with having swelling to the left flank area area of persistent contusion previously. Her hemoglobin today is 12. Baseline with 10-11 during her previous visit. A CT scan of the abdomen pelvis was done. There is grossly no enlargement of the contusion / hematoma area. Patient is well-appearing neurologically intact. Will discharge patient home. No bloody stool. In stable condition. CT scan also did not show any solid organ injury. Differential Diagnosis Differential Diagnoses: The differential diagnosis associated with the presentation includes Fracture, hematoma, intra-abdominal bleeding Admission/Observation Consideration of admission/observation: Escalation of care including admission/observation considered Lab Data [facility] Lab Attestation statement: I reviewed the patient's lab results. 09/24/24 13:10 09/24/24 13:10 Labs: Lab Results 09/24/24 Range/Units 13:10 WBC 4.2 L (4.8-10.8) X10*3/uL RBC 4.11 L (4.20-5.50) X10*6/uL Hgb 12.5 (12.0-16.0) g/dl Hct 37.7 D (37.0-47.0) % MCV 91.7 (80.0-98.0) fL MCH 30.4 (27.0-33.0) pg MCHC 33.2 (31.0-35.0) g/dl RDW 13.6 (11.0-16.0) % Plt Count 144 L (160-400) X10*3/uL MPV 10.9 (9.4-12.3) fL Immature Gran % (Auto) 0.2 (0.0-0.4) % Neut % (Auto) 69.4 (45-73) % Lymph % (Auto) 17.7 L (20-40) % [place] % (Auto) 9.0 (2-11) % Eos % (Auto) 2.8 (0-4) % Baso % (Auto) 0.9 (0-2) % Lymph # (Auto) 0.8 L (1.2-4.9) X10*3/uL [place] # (Auto) 0.4 (0.1-1.2) X10*3/uL Eos # (Auto) 0.1 (0.0-0.4) X10*3/uL Baso # (Auto) 0.0 (0.0-0.2) X10*3/uL Abs Immat Gran (auto) 0.01 (0.00-0.03) X10*3/uL Absolute Neuts (auto) 2.9 (2.0-8.3) x10*3/uL Absolute Nucleated RBC 0.000 (0.0-0.012) X10*3/uL Nucleated RBC % (auto) 0.0 (0.0-0.2) /100WBC Sodium 143 (135-145) mmol/L Potassium 4.0 (3.3-5.1) mmol/L Chloride 108 (96-108) mmol/L Carbon Dioxide 27 (22-29) mmol/L Anion Gap 12 (12-20) BUN 13 (9-16) mg/dL Creatinine 0.73 (0.5-1.4) mg/dL Estim Creat Clear Calc 67.4 Estimated GFR > 60 Random Glucose 84 (60-115) mg/dL Calcium 8.7 (8.4-10.2) mg/dL Independent Interpretation I performed an independent interpretation of an: CT Scan ( no intra-abdominal bleeding) Radiology Impression Discussion of test interpretation with radiology: I have reviewed the radiologist's reading. External Record Review External record reviewed: Inpatient record previous CT scan previous admission record reviewed Social Determinants Patient?s care significantly limited by Social Determinants of Health including: Inadequate housing and Low income Discharge Plan Discharge Clinical Impression: Hematoma of left flank Patient Disposition: Home, Self-Care Instructions: Contusion in Adults (ED) Prescriptions: No Action latanoprost 0.005 % drops 1 drp ophthalmic (eye) BEDTIME Rx Instructions: Both eyes atorvastatin 80 mg tablet 80 mg PO DAILY acetaminophen 325 mg tablet 650 mg PO Q4H PRN (Reason: Fever Or Pain) benztropine 0.5 mg tablet 0.5 mg PO DAILY sucralfate 1 gram tablet 1 g PO QID ondansetron HCl 4 mg tablet 4 mg PO Q6H PRN (Reason: Nausea And Vomiting) clonazepam 0.5 mg tablet 0.5 mg PO BID olanzapine 5 mg tablet 5 mg PO BEDTIME melatonin 3 mg tablet 9 mg PO BEDTIME amlodipine 5 mg tablet 5 mg PO DAILY pantoprazole 20 mg tablet,delayed release (DR/EC) 20 mg PO DAILY@0630 metoclopramide HCl 5 mg tablet 5 mg PO Q6H PRN (Reason: GI upset) mirtazapine 15 mg tablet 15 mg PO BEDTIME metoprolol succinate 25 mg tablet extended release 24 hr 25 mg PO DAILY polyethylene glycol 3350 [Miralax] 17 gram/dose Powder 17 g PO DAILY Rx Instructions: Mix 17 gm in 8 oz of water carbidopa-levodopa 25-100 mg tablet 1 tab PO BID escitalopram oxalate 10 mg tablet 10 mg PO DAILY Rx Instructions: Take with 5 mg for a total dose =15 mg escitalopram oxalate 5 mg tablet 5 mg PO DAILY Rx Instructions: Take with 10 mg for a total dose =15mg Eliquis 5 mg tablet 5 mg PO BID Referrals: Jose Roberto Garcia DO [Primary Care Provider] - 09/26/24 Print Language: Malian
[2024-09-24 13:19] LABS: MANUAL DIFF FLAG NO
[2024-09-24 13:28] LABS: Basophils Percent Auto 0.9 % (0-2); Eosinophils Absolute Auto 0.1 X10*3/uL (0.0-0.4); Eosinophils Percent Auto 2.8 % (0-4); Hematocrit 37.7 % (37.0-47.0); Hemoglobin 12.5 g/dl (12.0-16.0); Imm Gran Abs Auto 0.01 X10*3/uL (0.00-0.03); Imm Gran Pct Auto 0.2 % (0.0-0.4); Lymphocytes Absolute Auto 0.8 X10*3/uL (1.2-4.9); Lymphocytes Percent Auto 17.7 % (20-40); Mean Corpuscular HGB Conc 33.2 g/dl (31.0-35.0); Mean Corpuscular Hemoglobin 30.4 pg (27.0-33.0); Mean Corpuscular Volume 91.7 fL (80.0-98.0); Mean Platelet Volume 10.9 fL (9.4-12.3); Monocytes Absolute Auto 0.4 X10*3/uL (0.1-1.2); Neutrophils Absolute Auto 2.9 x10*3/uL (2.0-8.3); Neutrophils Percent Auto 69.4 % (45-73); Platelet Count 144 X10*3/uL (160-400); Red Blood Count 4.11 X10*6/uL (4.20-5.50); Red Cell Distribution Width 13.6 % (11.0-16.0); White Blood Count 4.2 X10*3/uL (4.8-10.8)
[2024-09-24 13:36] LABS: Anion Gap 12 (12-20); Blood Urea Nitrogen 13 mg/dL (9-16); Calcium 8.7 mg/dL (8.4-10.2); Carbon Dioxide 27 mmol/L (22-29); Chloride 108 mmol/L (96-108); Creatinine Clr Calc Pharmacy 67.4; Estimated Glomerular Filt Rate > 60; Glucose Random 84 mg/dL (60-115); Sodium 143 mmol/L (135-145)
[2024-09-24] MEDS: LORazepam 0.5 MG TABLET PO (16:02)
== END 2024-09-24 21:14 | disposition home or self-care (01) ==
PROVIDERS: Emergency Provider Emergency Medicine Emergency Medical Services; PCP Family Medicine
DX: S30.1XXA Contusion of abdominal wall, initial encounter (principal); M54.50 Low back pain, unspecified; R10.2 Pelvic and perineal pain; X58.XXXA Exposure to other specified factors, initial encounter; Y93.9 Activity, unspecified; Y92.89 Other specified places as the place of occurrence of the external cause; Z79.01 Long term (current) use of anticoagulants; Y99.8 Other external cause status; Z79.899 Other long term (current) drug therapy
CPT/HCPCS: 36415; 74176; 80048; 85025; 99283; 99284

== ENCOUNTER 2025-01-14 13:06 | Emergency (ER) | payer OTHER, SELFPAY ==
--- NOTE | ~2025-01-14 | CT_ITS ---
EXAMINATION: CT ABDOMEN AND PELVIS WITH CONTRAST CLINICAL INFORMATION: Abdominal pain. COMPARISON: 09/24/2024, 09/10/2024. TECHNIQUE: Multidetector volumetric images were obtained from the superior aspect of the liver through the pubic symphysis following administration 85 mL of Omnipaque 350 intravenous contrast. Sagittal and coronal reformatted images were obtained on the technologist's workstation. Oral contrast: No This CT examination was performed using dose optimization techniques as appropriate, variously including the following: *Automated exposure control *Adjustment of mA and/or kV according to patient size (this includes techniques or standardized protocols for targeted exams where dose is matched to indication/reason for exam; i.e. extremities or head) *Use of iterative reconstruction technique FINDINGS: LUNG BASES: The visualized lung bases are unremarkable. LIVER, GALLBLADDER, AND BILIARY TREE: The liver has a somewhat macrolobulated contour suggesting possible cirrhosis. There is no suspicious focal hepatic lesion. There is minimal intrahepatic and extrahepatic biliary dilatation, likely reservoir effect from cholecystectomy. This finding is stable. The gallbladder is surgically absent. PANCREAS: Unremarkable. SPLEEN: Borderline splenomegaly, with craniocaudal diameter of 12.0 cm ADRENAL GLANDS: Unremarkable. KIDNEYS AND URETERS: The kidneys are normal in size, shape, and attenuation. No hydronephrosis, hydroureter, or calculi seen. No perinephric stranding. BLADDER: Unremarkable. GASTROINTESTINAL TRACT: There is moderate colonic diverticulosis most notable in the sigmoid. There is no inflammation or wall thickening to suggest acute diverticulitis. There are no CT features of appendicitis. The small bowel is normal in caliber and course. There is a second segment duodenal diverticulum. The stomach is unremarkable. No rectal abnormality. ABDOMINAL WALL: No significant hernia. Right flank region spinal stimulator device in place with lead extending through the left S2 neural foramen. LYMPH NODES: Normal. VASCULAR: Moderate calcific atheromatous disease of the aorta and iliac vessels. No aneurysm. PELVIC VISCERA: There has been a hysterectomy. There are no adnexal masses. OSSEOUS STRUCTURES: No suspicious lytic or blastic bone lesions. Mild degenerative changes in the hip joints and spine. CT/CT abdomen pelvis w IV con IMPRESSION: 1. No acute findings in the abdomen or pelvis. 2. Colonic diverticulosis. 3. Cirrhotic morphology of the liver. No suspicious liver lesion. 4. Borderline splenomegaly. 5. Cholecystectomy. 6. Additional ancillary findings as discussed in the body of the report. Electronically signed by: Cheikh Allen MD 01/14/2025 03:43 PM EDT RP
--- NOTE | ~2025-01-14 | XR_ITS ---
EXAMINATION: XR CHEST 2 VIEWS HISTORY: chest pain COMPARISON: Comparison is made with the prior examination dated 09/10/2024. FINDINGS: PA and lateral views of the chest are submitted. The lungs are expanded and clear. There is no pleural effusion, pneumothorax, or pulmonary vascular congestion. The heart is normal in size. The bones are intact. Again seen are surgical clips in the right breast. XR/XR chest 2V IMPRESSION: No acute cardiopulmonary abnormality. Electronically signed by: Tung Hunter MD 01/14/2025 01:40 PM EDT
[2025-01-14 13:15] VITALS: BP 125/84; PULSE 63; O2SAT 98
--- NOTE | 2025-01-14 13:19 | ECG_ITS ---
Test Reason : chest pain Blood Pressure : */* mmHG Vent. Rate : 56 BPM Atrial Rate : 56 BPM P-R Int : 150 ms QRS Dur : 74 ms QT Int : 462 ms P-R-T Axes : 60 59 37 degrees QTcB Int : 445 ms Sinus bradycardia Otherwise normal ECG When compared with ECG of 10-Sep-2024 13:24, No significant change was found Referred By: Anna Rm Electronically Signed By: Tiburcio Clemons
--- NOTE | 2025-01-14 13:19 | ED_ITS ---
HPI - General Adult General Chief complaint: Chest Pain Stated complaint: CP,NAUSEA,ASA & ZOFRAN GIVEN PER EMS Time Seen by Provider: 01/14/25 13:18 Source: patient and EMS Mode of arrival: EMS Limitations: no limitations History of Present Illness ED Provider: Anna Rm PA-C HPI narrative: 74 year old female with PMHx paroxysmal atrial flutter, migraines, essential tremor, cirrhosis, R breast cancer s/p mastectomy in remission, HTN, HLD, and chronic abdominal pain presenting to the ED c/o CP and abdominal pain since noon. Pt describes the pain as centrally located and sharp in nature, occurring at rest, initially 5/10 pain. Reports CP was preceded by nausea and diffuse abd pain that remain unresolved. Reports similar episodes in the past, that usually resolve on their own in about a day. Followed by GI at [facility], reports seeing within the past month for liver U/S, however unable to recall the results and noted they usually manage her nausea and told her to f/u in 6m. Reports hx cholecystectomy. Last BM today. Denies fevers, cough, SOB, dysuria, hematuria, numbness/tingling, new rashes/wounds, worsening pain with meals. Denies alcohol, smoking, drug use. Received zofran and ASA per EMS, reports 4/10 pain at the time of my interview. Onset (ago): hour(s) Location: chest and abdomen Radiation: non-radiation Quality: sharp and dull Pain Consistency: constant Relieving factors: none Exacerbating factors: none Associated symptoms: nausea/vomiting (no vomitting) Treatments prior to arrival: none Related Data Home Medications ?Medication ?Instructions ?Recorded ?Confirmed amlodipine 5 mg tablet 5 mg PO DAILY 02/22/23 11/19/24 benztropine 0.5 mg tablet 0.5 mg PO DAILY 02/22/23 11/19/24 clonazepam 0.5 mg tablet 0.5 mg PO DAILY PRN 02/22/23 11/19/24 docusate sodium 100 mg capsule 100 mg PO DAILY 02/22/23 11/13/23 famotidine 40 mg tablet 0 mg PO 02/22/23 11/13/23 gabapentin 400 mg capsule 400 mg PO TID 02/22/23 11/13/23 hydroxyzine pamoate 25 mg capsule 25 mg PO BID 02/22/23 11/13/23 melatonin 3 mg tablet 0 mg PO 02/22/23 11/19/24 methylphenidate HCl 54 mg 54 mg PO DAILY 02/22/23 11/13/23 tablet,extended release 24 hr metoprolol succinate 25 mg 25 mg PO DAILY 02/22/23 11/19/24 tablet,extended release 24 hr olanzapine 5 mg tablet 5 mg PO BEDTIME 02/22/23 11/19/24 ondansetron HCl 4 mg tablet 0 mg PO 02/22/23 11/19/24 pantoprazole 20 mg tablet,delayed 20 mg PO DAILY 02/22/23 11/19/24 release promethazine 12.5 mg tablet 25 mg PO BID 02/22/23 11/13/23 trazodone 150 mg tablet 150 mg PO BEDTIME 02/22/23 11/13/23 apixaban 5 mg tablet (Eliquis) 5 mg PO BID 11/13/23 11/19/24 acetaminophen 325 mg tablet 650 mg PO Q4H PRN Fever Or Pain 09/10/24 09/10/24 amlodipine 5 mg tablet 5 mg PO DAILY 09/10/24 09/10/24 apixaban 5 mg tablet (Eliquis) 5 mg PO BID 09/10/24 09/10/24 atorvastatin 80 mg tablet 80 mg PO DAILY 09/10/24 09/10/24 benztropine 0.5 mg tablet 0.5 mg PO DAILY 09/10/24 09/10/24 carbidopa 25 mg-levodopa 100 mg 1 tab PO BID 09/10/24 09/10/24 tablet clonazepam 0.5 mg tablet 0.5 mg PO BID 09/10/24 09/10/24 escitalopram oxalate 10 mg tablet 10 mg PO DAILY 09/10/24 09/10/24 escitalopram oxalate 5 mg tablet 5 mg PO DAILY 09/10/24 09/10/24 latanoprost 0.005 % eye drops 1 drp ophthalmic (eye) BEDTIME 09/10/24 09/10/24 melatonin 3 mg tablet 9 mg PO BEDTIME 09/10/24 09/10/24 metoclopramide HCl 5 mg tablet 5 mg PO Q6H PRN GI upset 09/10/24 09/10/24 metoprolol succinate 25 mg 25 mg PO DAILY 09/10/24 09/10/24 tablet,extended release 24 hr mirtazapine 15 mg tablet 15 mg PO BEDTIME 09/10/24 09/10/24 olanzapine 5 mg tablet 5 mg PO BEDTIME 09/10/24 09/10/24 ondansetron HCl 4 mg tablet 4 mg PO Q6H PRN Nausea And Vomiting 09/10/24 09/10/24 pantoprazole 20 mg tablet,delayed 20 mg PO DAILY@0630 09/10/24 09/10/24 release polyethylene glycol 3350 17 17 g PO DAILY 09/10/24 09/10/24 gram/dose oral powder (Miralax) sucralfate 1 gram tablet 1 g PO QID 09/10/24 09/10/24 atorvastatin 80 mg tablet 80 mg PO DAILY 11/19/24 11/19/24 escitalopram oxalate 10 mg tablet 10 mg PO DAILY 11/19/24 11/19/24 escitalopram oxalate 5 mg tablet 5 mg PO DAILY 11/19/24 11/19/24 metoclopramide HCl 5 mg tablet 5 mg PO QIDACHS 11/19/24 11/19/24 mirtazapine 15 mg tablet 15 mg PO BEDTIME 11/19/24 11/19/24 polyethylene glycol 3350 17 17 g PO DAILY 11/19/24 11/19/24 gram/dose oral powder sucralfate 1 gram tablet 1 g PO BID 11/19/24 11/19/24 timolol 0.5 %-dorzolamide 2 drp ophthalmic (eye) 11/19/24 11/19/24 %-latanprost 0.005 % (PF) eye drops Previous Rx's ?Medication ?Instructions ?Recorded carbidopa 25 mg-levodopa 100 mg 1 tab PO TID 30 days #90 tabs 11/27/24 tablet galcanezumab-gnlm 120 mg/mL 240 mg (2 mL) subcut ONCE 30 days 11/27/24 subcutaneous pen injector #2 mL (Emgality Pen) magnesium oxide 400 mg (241.3 mg 400 mg PO BEDTIME 30 days #30 tabs 11/27/24 magnesium) tablet riboflavin (vitamin B2) 400 mg 400 mg PO DAILY 30 days #30 tabs 11/27/24 tablet rimegepant 75 mg disintegrating 75 mg PO ONCE PRN migraine 11/27/24 tablet (Nurtec ODT) headache 30 days #16 tabs Allergies Allergy/AdvReac Type Severity Reaction Status Date / Time alendronate sodium Allergy Severe Rash Verified 01/14/25 13:21 latex Allergy Severe Hives Verified 01/14/25 13:21 amitriptyline Allergy Hives Verified 01/14/25 13:21 meperidine [From Demerol] Allergy Unknown Verified 01/14/25 13:21 Review of Systems 2 Constitutional: Constitutional: Reports no additional constitutional complaints, Denies chills, Denies fever(s) and Denies night sweats Eyes: Eyes: Reports no additional eye complaints, Denies blurry vision, Denies change in vision, Denies diplopia, Denies eye discharge, Denies loss of vision and Denies eye pain ENT: Denies dizziness, Denies nasal congestion and Denies sore throat Cardiovascular: Cardiovascular: Reports no additional cardiovascular complaints, Reports chest pain, Denies leg edema, Denies lightheadedness, Denies Loss of Consciousness, Denies radiating jaw, neck or arm pain and Denies dyspnea Respiratory: Respiratory: Reports no additional respiratory complaints, Denies cough and Denies dyspnea Gastrointestinal: Gastrointestinal: Reports no additional gastrointestinal complaints, Reports abdominal pain, Denies melena, Denies hematochezia, Denies change in bowel habits, Denies change in stool character, Denies constipation, Denies diarrhea, Reports nausea and Denies vomiting Genitourinary: Genitourinary: Denies hematuria, Denies urinary frequency, Denies dysuria, Denies urinary incontinence, Denies urinary hesitancy and Denies urinary urgency Musculoskeletal: Musculoskeletal: Reports no additional musculoskeletal complaints, Denies numbness and Denies tingling Neurologic: Denies dizziness, Denies loss of vision, Denies numbness and Denies tingling Psychiatric: Psychiatric: Reports no additional psychiatric complaints Endocrine: Endocrine: Reports no additional endocrine complaints Hematologic/Lymphatic: Hematologic/Lymphatic: Reports no additional hematologic/lymphatic complaints Allergic/Immunologic: Allergic/Immunologic: Reports no additional allergic/immunologic complaints PMFSH Past Medical History Attestation statement: The following information was validated with the patient. Source: old records reviewed and nursing notes reviewed Medical History History of breast cancer Osteoporosis HTN (hypertension) Depression History of hepatitis C Cirrhosis of liver CTS (carpal tunnel syndrome) Paroxysmal atrial flutter Surgical History H/O: hysterectomy Hx of appendectomy Hx of cholecystectomy Family History Family History Mother Cancer HTN (hypertension) Social History Social History Alcohol intake: former Patient Tobacco Use Status: Never used Tobacco Substance Use Type: Marijuana Advance Directives: Yes Advance Directives on File: Yes Advance Directives Date on File: 09/10/24 service: No Physical Exam ED Vital Signs: Vital Signs - 24 hr 01/14/25 13:20 01/14/25 16:30 01/14/25 16:53 Temperature 98 F 98.1 F 98.1 F Pulse Rate 65 62 62 Respiratory Rate 16 18 18 Blood Pressure 137/57 L 161/56 H 161/56 H Pulse Oximetry 96 97 97 Oxygen Delivery Method Room Air Room Air Room Air BMI result Body Mass Index 31.2 Const General: cooperative, no acute distress, alert and awake Nutritional Appearance: well nourished Orientation/consciousness: patient oriented x3 Limitations: no limitations HENMT Head: Yes normal to inspection and Yes atraumatic Ears: hearing grossly normal bilaterally and external ears normal General nose exam: Normal external nose present, no nasal discharge noted and no epistaxis Face and sinus: Yes normal facial exam, No abrasion and No laceration Mouth: Normal oral and palatal mucosa present, no drooling and no muffled voice Eyes General: appearance normal, both eyes and all related structures Periorbital: periorbital findings normal Eyelids: Yes eyelids normal Conjunctivae: conjunctivae normal Pupils: Equal, round and reactive pupils present EOM: EOMs intact bilaterally Neck Neck: Yes normal visual inspection, Yes full ROM and Yes no lymphadenopathy Chest Chest palpation & inspection: normal inspection of the chest Resp Effort & Inspection: normal respiratory effort and able to speak in complete sentences GI Inspection: Yes normal to inspection and No abdominal wall ecchymosis Palpation (GI): Soft to palpation, Tenderness to palpation present (GI) (diffuse ttp), no guarding and not rigid Auscultation: normal bowel sounds Neuro General: patient oriented x3, moves all extremities and CN's II-XI intact bilaterally Cranial nerves: Yes Equal, round and reactive pupils present Cognition (Neuro): normal cognition Extrem General: Yes normal to inspection, Yes full ROM and Yes capillary refill normal Psych Appearance: grossly normal Mental Status: mental status grossly normal Affect: normal affect Attitude: cooperative Thought process: Normal thought process present Thought content: Normal thought content present Insight: Good insight present (Psych) Medications Administered Discontinued Medications Generic Name Dose Route Start Last Admin Trade Name Freq PRN Reason Stop Dose Admin Al Hydroxide/Mg Hydroxide 15 ml 01/14/25 13:52 01/14/25 14:07 Magnesium Hydrox/Alum Hydrox 30 Ml Oral.Susp PO 01/14/25 13:53 15 ml ONCE ONE Administration Diazepam 2.5 mg 01/14/25 16:20 01/14/25 16:45 Diazepam 10 Mg/2 Ml Cartridge IVPUSH 01/14/25 16:21 2.5 mg STAT STA Administration Famotidine 20 mg 01/14/25 16:11 01/14/25 16:46 Famotidine/Pf 20 Mg/2 Ml Vial IVPUSH 01/14/25 16:12 20 mg ONCE ONE Administration Iohexol 100 ml 01/14/25 15:24 01/14/25 15:24 Iohexol 350 Mg/Ml 100 Ml Infus..Btl IV 01/14/25 15:25 85 ml ONCE ONE Administration Pantoprazole Sodium 40 mg 01/14/25 13:52 01/14/25 14:07 Pantoprazole Sodium 40 Mg/10 Ml Vial IVPUSH 01/14/25 13:53 40 mg ONCE ONE Administration Medical Decision Making Medical Decision Making [facility] Narrative: Patient is a 74 year old assigned female at with a history of breast cancer, hepatitis C, atrial flutter on Eliquis, osteoporosis with fragile fractures, cirrhosis with esophageal varices, hyperlipidemia, hypertension, gastroparesis, TIA, and tardive dyskinesia, presenting to the emergency department today with acute on chronic epigastric / abdominal / chest pain. Patient's physical exam was as noted in the physical exam portion of this note. Patient's blood work was unremarkable. Patient's urine showed no acute process. Patient's EKG was unremarkable. Patient's CT abd/pelvis showed no acute process. I explained my physical exam findings as well as all test results to the patient. I answered all questions asked by the patient. Patient received IV protonix, valium, and Zofran as well as PO Maalox which, upon re-evaluation, she stated it helped her symptoms significantly. I stressed the importance of the patient taking her medication as directed (either prescribed or as the over the counter packaging recommends). I stressed the importance of the patient following up with her primary care provider and her GI specialist at [facility]. I stressed the importance of the patient returning to the emergency department immediately if her symptoms were to worsen or if she were to develop any dizziness, shortness of breath, difficulty breathing, chest pain, blurry vision, loss of vision, nausea, vomiting, abdominal pain, fever, chills, back pain, or any other complaints. Patient verbalized agreement and understanding with this treatment plan and discharge. Differential Diagnosis Differential Diagnoses: The differential diagnosis associated with the presentation includes Abdominal pain Acute on chronic abdominal pain GERD Gastroparesis Admission/Observation Consideration of admission/observation: Escalation of care including admission/observation considered Patient would have been admitted to the hospital had her work up had any findings where hospital admission was appropriate and her clinical presentation warranted hospital admission. Lab Data [facility] Lab Attestation statement: I reviewed the patient's lab results. My interpretation of these results are in the [facility] Rationale portion of this note. 01/14/25 14:10 01/14/25 14:10 Labs: Lab Results 01/14/25 01/14/25 Range/Units 13:53 14:10 WBC 5.4 (4.8-10.8) X10*3/uL RBC 4.49 (4.20-5.50) X10*6/uL Hgb 13.3 (12.0-16.0) g/dl Hct 37.2 (37.0-47.0) % MCV 82.9 (80.0-98.0) fL MCH 29.6 (27.0-33.0) pg MCHC 35.8 H (31.0-35.0) g/dl RDW 13.2 (11.0-16.0) % Plt Count 111 L (160-400) X10*3/uL MPV 10.7 (9.4-12.3) fL Immature Gran % (Auto) 0.4 (0.0-0.4) % Neut % (Auto) 74.4 H (45-73) % Lymph % (Auto) 15.6 L (20-40) % [place] % (Auto) 8.3 (2-11) % Eos % (Auto) 0.9 (0-4) % Baso % (Auto) 0.4 (0-2) % Lymph # (Auto) 0.9 L (1.2-4.9) X10*3/uL [place] # (Auto) 0.5 (0.1-1.2) X10*3/uL Eos # (Auto) 0.1 (0.0-0.4) X10*3/uL Baso # (Auto) 0.0 (0.0-0.2) X10*3/uL Abs Immat Gran (auto) 0.02 (0.00-0.03) X10*3/uL Absolute Neuts (auto) 4.1 (2.0-8.3) x10*3/uL Absolute Nucleated RBC 0.000 (0.0-0.012) X10*3/uL Nucleated RBC % (auto) 0.0 (0.0-0.2) /100WBC PT 13.8 H (10.9-12.4) SEC INR 1.2 H (0.9-1.1) Sodium 142 (135-145) mmol/L Potassium 3.6 (3.3-5.1) mmol/L Chloride 110 H (96-108) mmol/L Carbon Dioxide 28 (22-29) mmol/L Anion Gap 8 L (12-20) BUN 10 (9-16) mg/dL Creatinine 0.76 (0.5-1.4) mg/dL Estim Creat Clear Calc 61.5 Estimated GFR > 60 Random Glucose 100 (60-115) mg/dL Calcium 8.9 (8.4-10.2) mg/dL Magnesium 2.0 (1.6-2.6) mg/dL Total Bilirubin 0.6 (0.0-1.0) mg/dL AST 39 H (5-31) U/L ALT 12 (0-31) U/L Alkaline Phosphatase 82 (39-117) U/L Troponin I High Sens 10.8 (<3.5-17.0) ng/L B-Natriuretic Peptide 298 H (<100) pg/mL Total Protein 6.3 L (6.5-8.0) g/dL Albumin 4.0 (3.5-5.0) g/dL Urine Color Yellow Urine Appearance Clear Urine pH >= 9.0 (5.0-9.0) Ur Specific [place] 1.010 (1.005-1.025) Urine Protein Negative (Neg-Trace) mg/dL Urine Glucose (UA) Negative (Negative) mg/dL Urine Ketones Negative (Negative) mg/dL Urine Blood Negative (Negative) Urine Nitrite Negative (Negative) Ur Leukocyte Esterase Negative (Negative) Influenza Type A (PCR) NEGATIVE (Negative) Influenza Type B (PCR) NEGATIVE (Negative) RSV RNA Qual (PCR) NEGATIVE (Negative) SARS-CoV-2 RNA (RT-PCR) NEGATIVE (Negative) Independent Interpretation I performed an independent interpretation of an: Plain X-Ray and CT Scan Interpretation: My interpretation is in agreement with the radiologist's impression of these imaging studies. L Report Number: [id number]: Total DLP = 537.00 mGy-cm EXAMINATION: CT ABDOMEN AND PELVIS WITH CONTRAST CLINICAL INFORMATION: Abdominal pain. COMPARISON: 09/24/2024, 09/10/2024. TECHNIQUE: Multidetector volumetric images were obtained from the superior aspect of the liver through the pubic symphysis following administration 85 mL of Omnipaque 350 intravenous contrast. Sagittal and coronal reformatted images were obtained on the technologist's workstation. Oral contrast: No This CT examination was performed using dose optimization techniques as appropriate, variously including the following: *Automated exposure control *Adjustment of mA and/or kV according to patient size (this includes techniques or standardized protocols for targeted exams where dose is matched to indication/reason for exam; i.e. extremities or head) *Use of iterative reconstruction technique FINDINGS: LUNG BASES: The visualized lung bases are unremarkable. LIVER, GALLBLADDER, AND BILIARY TREE: The liver has a somewhat macrolobulated contour suggesting possible cirrhosis. There is no suspicious focal hepatic lesion. There is minimal intrahepatic and extrahepatic biliary dilatation, likely reservoir effect from cholecystectomy. This finding is stable. The gallbladder is surgically absent. PANCREAS: Unremarkable. SPLEEN: Borderline splenomegaly, with craniocaudal diameter of 12.0 cm ADRENAL GLANDS: Unremarkable. KIDNEYS AND URETERS: The kidneys are normal in size, shape, and attenuation. No hydronephrosis, hydroureter, or calculi seen. No perinephric stranding. BLADDER: Unremarkable. GASTROINTESTINAL TRACT: There is moderate colonic diverticulosis most notable in the sigmoid. There is no inflammation or wall thickening to suggest acute diverticulitis. There are no CT features of appendicitis. The small bowel is normal in caliber and course. There is a second segment duodenal diverticulum. The stomach is unremarkable. No rectal abnormality. ABDOMINAL WALL: No significant hernia. Right flank region spinal stimulator device in place with lead extending through the left S2 neural foramen. LYMPH NODES: Normal. VASCULAR: Moderate calcific atheromatous disease of the aorta and iliac vessels. No aneurysm. PELVIC VISCERA: There has been a hysterectomy. There are no adnexal masses. OSSEOUS STRUCTURES: No suspicious lytic or blastic bone lesions. Mild degenerative changes in the hip joints and spine. CT/CT abdomen pelvis w IV con IMPRESSION: 1. No acute findings in the abdomen or pelvis. 2. Colonic diverticulosis. 3. Cirrhotic morphology of the liver. No suspicious liver lesion. 4. Borderline splenomegaly. 5. Cholecystectomy. 6. Additional ancillary findings as discussed in the body of the report. Electronically signed by: Cheikh Allen MD 01/14/2025 03:43 PM EDT RP Dictated By: Cheikh Allen MD Signed By: Electronically signed by Cheikh Allen MD 01/14/25 1543 EXAMINATION: XR CHEST 2 VIEWS HISTORY: chest pain COMPARISON: Comparison is made with the prior examination dated 09/10/2024. FINDINGS: PA and lateral views of the chest are submitted. The lungs are expanded and clear. There is no pleural effusion, pneumothorax, or pulmonary vascular congestion. The heart is normal in size. The bones are intact. Again seen are surgical clips in the right breast. XR/XR chest 2V IMPRESSION: No acute cardiopulmonary abnormality. Electronically signed by: Tung Hunter MD 01/14/2025 01:40 PM EDT RP Dictated By: Tung Hunter MD Signed By: Electronically signed by Tung Hunter MD 01/14/25 1340 I independently interpreted this EKG and am in agreement with the below findings: Vent. Rate: 56 BPM Atrial Rate: 56 BPM P-R Int: 150 ms QRS Dur: 74 ms QT Int: 462 ms P-R-T Axes: 60 59 37 degrees QTcB Int: 445 ms Sinus bradycardia Otherwise normal ECG When compared with ECG of 10-Sep-2024 13:24, No significant change was found Electronically Signed By: Tiburcio Clemons Dictated By: Tiburcio Clemons MD Signed By: Electronically signed by Tiburcio Clemons MD 01/14/25 1422 Radiology Impression Discussion of test interpretation with radiology: I have reviewed the radiologist's reading. Independent Historian Clinical information obtained from an independent historian. History obtained from or confirmed by: EMS (EMS provided additional history and confirmed the history provided by the patient.) Critical Care Time Critical Care Time Critical Care Time: Yes Total Critical Care Time: 46 Attestation: I spent 46 minutes of Critical Care Time with this patient. This does not include time spent on separately reported billable procedures. Discharge Plan Discharge Clinical Impression: Abdominal pain Patient Disposition: Home, Self-Care Instructions: Abdominal Pain (ED) Additional Instructions: Follow up with your primary care provider and your GI specialist. Return to the emergency department immediately if your symptoms worsen or if you develop any numbness, tingling, dizziness, shortness of breath, difficulty breathing, chest pain, blurry vision, loss of vision, nausea, vomiting, abdominal pain, fever, chills, back pain, or any other complaints. Please see the information below about our Patient Portal. If you are not yet enrolled in the [facility] Patient Portal, you will receive an enrollment email invitation following your visit to any [facility] care setting. You may also self-enroll in the Patient Portal by visiting our website: [email or web address] The following information is required to access the Patient Portal: - Your [facility] Medical Record Number - Your personal home email address (must match what is in your electronic medical record, Registration staff can assist with this) - Name - Date of Capabilities of the Patient Portal: - Message some providers - View upcoming appointments - Access your health summary, medical history, and visit history - View current conditions and allergies - View procedure and lab results - View your medications, including guidelines, side effects, and precautions - Complete pre-appointment questionnaires requested by your provider - Ready summary reports of your office visits and procedures To access the Patient Portal Mobile [employer], follow these directions: - Search [employer] in the Larry Store or [employer] Store - Download the Larry - Search for [facility] - Enter your login/password Prescriptions: No Action Emgality Pen 120 mg/mL pen injector 240 mg subcut ONCE 30 Days Qty: 2 0RF Rx Instructions: Loading dose: 120 mg subcu injection x2 in alternate sites (total 240 mg). To be followed by maintenance dose of 120 mg subcu q.month. carbidopa-levodopa 25-100 mg tablet 1 tab PO TID 30 Days Qty: 90 6RF Rx Instructions: take w/ a cracker 30 minutes before breakfast and dinner, riboflavin (vitamin B2) 400 mg tablet 400 mg PO DAILY 30 Days Qty: 30 6RF Rx Instructions: in am magnesium oxide 400 mg (241.3 mg magnesium) tablet 400 mg PO BEDTIME 30 Days Qty: 30 6RF Rx Instructions: may hold for loose stools Nurtec ODT 75 mg tablet,disintegrating 75 mg PO ONCE MDD 1 tab PRN (Reason: migraine headache) 30 Days Qty: 16 6RF latanoprost 0.005 % drops 1 drp ophthalmic (eye) BEDTIME Rx Instructions: Both eyes atorvastatin 80 mg tablet 80 mg PO DAILY acetaminophen 325 mg tablet 650 mg PO Q4H PRN (Reason: Fever Or Pain) benztropine 0.5 mg tablet 0.5 mg PO DAILY sucralfate 1 gram tablet 1 g PO QID ondansetron HCl 4 mg tablet 4 mg PO Q6H PRN (Reason: Nausea And Vomiting) clonazepam 0.5 mg tablet 0.5 mg PO BID olanzapine 5 mg tablet 5 mg PO BEDTIME melatonin 3 mg tablet 9 mg PO BEDTIME amlodipine 5 mg tablet 5 mg PO DAILY pantoprazole 20 mg tablet,delayed release (DR/EC) 20 mg PO DAILY@0630 metoclopramide HCl 5 mg tablet 5 mg PO Q6H PRN (Reason: GI upset) mirtazapine 15 mg tablet 15 mg PO BEDTIME metoprolol succinate 25 mg tablet extended release 24 hr 25 mg PO DAILY polyethylene glycol 3350 [Miralax] 17 gram/dose Powder 17 g PO DAILY Rx Instructions: Mix 17 gm in 8 oz of water carbidopa-levodopa 25-100 mg tablet 1 tab PO BID escitalopram oxalate 10 mg tablet 10 mg PO DAILY Rx Instructions: Take with 5 mg for a total dose =15 mg escitalopram oxalate 5 mg tablet 5 mg PO DAILY Rx Instructions: Take with 10 mg for a total dose =15mg Eliquis 5 mg tablet 5 mg PO BID metoprolol succinate 25 mg tablet extended release 24 hr 25 mg PO DAILY olanzapine 5 mg tablet 5 mg PO BEDTIME pantoprazole 20 mg tablet,delayed release (DR/EC) 20 mg PO DAILY trazodone 150 mg tablet 150 mg PO BEDTIME amlodipine 5 mg tablet 5 mg PO DAILY benztropine 0.5 mg tablet 0.5 mg PO DAILY melatonin 3 mg tablet 0 mg PO docusate sodium 100 mg capsule 100 mg PO DAILY hydroxyzine pamoate 25 mg capsule 25 mg PO BID clonazepam 0.5 mg tablet 0.5 mg PO DAILY PRN ondansetron HCl 4 mg tablet 0 mg PO gabapentin 400 mg capsule 400 mg PO TID methylphenidate HCl 54 mg tablet extended release 24hr 54 mg PO DAILY famotidine 40 mg tablet 0 mg PO promethazine 12.5 mg tablet 25 mg PO BID Eliquis 5 mg tablet 5 mg PO BID escitalopram oxalate 5 mg tablet 5 mg PO DAILY escitalopram oxalate 10 mg tablet 10 mg PO DAILY polyethylene glycol 3350 17 gram/dose powder 17 g PO DAILY sucralfate 1 gram tablet 1 g PO BID atorvastatin 80 mg tablet 80 mg PO DAILY rnihlvt-wmmoyffwpc-qxgqoyc(PF) 0.5-2-0.005 % drops ophthalmic (eye) mirtazapine 15 mg tablet 15 mg PO BEDTIME metoclopramide HCl 5 mg tablet 5 mg PO QIDACHS Referrals: [facility] Family Medicine [Provider Group] (Call to establish and follow up with a primary care provider. If you already have a primary care provider, please follow up with them.) [facility] Primary Care, Marquise [Provider Group] (Call to establish and follow up with a primary care provider. If you already have a primary care provider, please follow up with them.) [facility] Primary CareRenzo [Provider Group] (Call to establish and follow up with a primary care provider. If you already have a primary care provider, please follow up with them.) [facility] Primary CareJose R [Provider Group] (Call to establish and follow up with a primary care provider. If you already have a primary care provider, please follow up with them.) Interventions: ED Discharge Assessment Last Done: 01/14/25 16:53 Print Language: Polish
[2025-01-14 13:20] VITALS: BP 137/57; PULSE 65; RESP 16; TEMP 36.6; O2SAT 96; BMI 31.2
[2025-01-14 14:02] LABS: Appearance Urine Clear; Color Urine Yellow; Glucose Urine UA Negative (Negative); Leukocyte Esterase Urine Negative (Negative); Nitrite Urine Negative (Negative); PH >= 9.0 (5.0-9.0); Urine Blood Negative (Negative); Urine Ketones Negative (Negative); Urine Protein Negative (Neg-Trace)
[2025-01-14] MEDS: Pantoprazole Sodium 40 MG/10 ML VIAL IVPUSH (14:07)
[2025-01-14] MEDS: Magnesium Hydrox/Alum Hydrox 30 ML ORAL.SUSP 15 ML PO (14:07)
[2025-01-14 14:23] LABS: MANUAL DIFF FLAG NO
[2025-01-14 14:28] LABS: Basophils Percent Auto 0.4 % (0-2); Eosinophils Absolute Auto 0.1 X10*3/uL (0.0-0.4); Eosinophils Percent Auto 0.9 % (0-4); Hematocrit 37.2 % (37.0-47.0); Hemoglobin 13.3 g/dl (12.0-16.0); Imm Gran Abs Auto 0.02 X10*3/uL (0.00-0.03); Imm Gran Pct Auto 0.4 % (0.0-0.4); Lymphocytes Absolute Auto 0.9 X10*3/uL (1.2-4.9); Lymphocytes Percent Auto 15.6 % (20-40); Mean Corpuscular HGB Conc 35.8 g/dl (31.0-35.0); Mean Corpuscular Hemoglobin 29.6 pg (27.0-33.0); Mean Corpuscular Volume 82.9 fL (80.0-98.0); Mean Platelet Volume 10.7 fL (9.4-12.3); Monocytes Absolute Auto 0.5 X10*3/uL (0.1-1.2); Monocytes Percent Auto 8.3 % (2-11); Neutrophils Absolute Auto 4.1 x10*3/uL (2.0-8.3); Neutrophils Percent Auto 74.4 % (45-73); Platelet Count 111 X10*3/uL (160-400); Red Blood Count 4.49 X10*6/uL (4.20-5.50); Red Cell Distribution Width 13.2 % (11.0-16.0); White Blood Count 5.4 X10*3/uL (4.8-10.8)
[2025-01-14 14:30] LABS: INTERNATIONAL NORM RATIO 1.2 (0.9-1.1); Prothrombin Time 13.8 SEC (10.9-12.4)
[2025-01-14 14:38] LABS: Alanine Aminotransferase 12 U/L (0-31); Alkaline Phosphatase 82 U/L (39-117); Anion Gap 8 (12-20); Aspartate Amino Transferase 39 U/L (5-31); Bilirubin Total 0.6 mg/dL (0.0-1.0); Blood Urea Nitrogen 10 mg/dL (9-16); Calcium 8.9 mg/dL (8.4-10.2); Carbon Dioxide 28 mmol/L (22-29); Chloride 110 mmol/L (96-108); Creatinine Clr Calc Pharmacy 61.5; Estimated Glomerular Filt Rate > 60; Glucose Random 100 mg/dL (60-115); Potassium 3.6 mmol/L (3.3-5.1); Sodium 142 mmol/L (135-145); Total Protein 6.3 g/dL (6.5-8.0)
[2025-01-14 14:43] LABS: B Type Natriuretic Peptide 298 pg/mL (<100)
[2025-01-14 14:45] LABS: Troponin-I High Sensitivity 10.8 ng/L (<3.5-17.0)
[2025-01-14 15:09] LABS: Influenza A PCR NEGATIVE (Negative); Influenza B PCR NEGATIVE (Negative); Resp Syncy Virus RNA Qual PCR NEGATIVE (Negative); SARS COV2 PCR INHOUSE NEGATIVE (Negative)
[2025-01-14] MEDS: iohexoL 350 MG/ML 100 ML INFUS..BTL IV (15:24)
--- OUTSIDE RECORDS SUMMARY | 2025-01-14 16:13 | XMS_ITS | Clinical Summary ---
Author Organization [address] [facility] Address [address] [place] [address] Phone Care Team Providers Care Multicultural Services Librarian Name Role Phone Surinder Zeng Primary Care Provider +1 [phone] Encounters Date Type Department Care Team Description 12/01/2024 Lab Requisition [facility] - Main Lab [address] [facility] [place] [address] Surinder Zeng PA Other nursing home (current) drug therapy from Last 3 Months Social History Tobacco Use Types Packs/Day Years Used Date Smoking Tobacco: Never Assessed Comments Unknown Sex and Gender Information Value Date Recorded Sex Assigned at Not on file Legal Sex Female 7:18 PM EST Gender Identity Not on file Sexual Orientation Not on file Plan of Treatment Health Maintenance Due Date Last Done Comments DTaP,Tdap,and Td Vaccines (1 - Tdap) 1968 Pneumococcal Vaccine: 50+ Ye ars (1 of 1 - PCV) 1999 Zoster Vaccines (1 of 2) 1999 COVID-19 Vaccine ( - 2023-2 5 season) 2024 Influenza Vaccine (#1) 2024 Cholesterol Screening (Lipid Panel) 09/17/2024 Colorectal Cancer Screening: Colonoscopy 09/17/2024 Depression Screening 09/17/2024 Falls Risk Assessment 09/17/2024 Hepatitis C Screening 09/17/2024 Osteoporosis Screening (Bone Density Screening) 09/17/2024 Social Influencers of Health Screening 09/17/2024 RSV Immunization Adult Patie nts (1 - 1-dose 75+ series) 2024 HIB Vaccines Aged Out No longer eligi ble based on patient's age to complete this topic HPV Vaccines Aged Out No longer eligi ble based on patient's age to complete this topic Hepatitis A Vaccines Aged Out No long er eligible based on patient's age to complete this topic Hepatitis B Vaccines Aged Out No long er eligible based on patient's age to complete this topic IPV Vaccines Aged Out No longer eligi ble based on patient's age to complete this topic MMR Vaccines Aged Out No longer eligi ble based on patient's age to complete this topic Meningococcal ACWY Vaccine Aged Out N o longer eligible based on patient's age to complete this topic Meningococcal B Vaccine Aged Out No l onger eligible based on patient's age to complete this topic RSV Immunization Patients Un don 20 months Aged Out No longer eligible b ased on patient's age to complete this topic Varicella Vaccines Aged Out No longer eligible based on patient's age to complete this topic Procedures Procedure Name Priority Date/Time Associated Diagnosis Comments HEMOGLOBIN A1C Routine 12/02/2024 8:50 AM EST Other nursing home (current) drug therapy from Last 3 Months Results * Hemoglobin A1c (12/02/2024 8:50 AM EST) Hemoglobin A1C 5.7 <6.5 % LAB CHEMISTRY METHOD 12/02/2024 1:59 PM EST [facility] Mean Bld Glu Estim. 117 mg/dL LAB CHEMISTRY METHOD 12/02/2024 1:59 PM EST [facility] Blood Venous blood specimen / Unknown Venipuncture / Unknown 12/02/2024 8:50 AM EST 12/02/2024 11:38 AM EST Surinder WOLF LAB BLOOD ORDERABLES Margarita l Result [facility] [address] [place] [address], from [place] [address] [place] [address] [place]ICAID - [place] [facility] Member Subscriber Plan / Payer (Ef fective 2024-Present) Name:Pamella Madrid Relation to Subscriber:Spouse Name:PAMELLA MADRID Date of :1949 Address: [address] [place] [address] Payer ID:[id number] Group ID:Not on file Type:Not on file Address: [address] [place] [address] Care Teams Multicultural Services Librarian Relationship Specialty Start Date End Date Surinder Zeng PA [address] [address] PCP - General Physician Die Sinker Apprentice 09/17/24
--- OUTSIDE RECORDS SUMMARY | 2025-01-14 16:13 | XMS_ITS | Encounter Summary ---
Author Organization [facility] Address [address] [place] [address] Care Team Providers Care Ramp Service Employee Name Role Phone Surinder Zeng Primary Care Provider +1 [phone] Encounter Details Date Type Department Care Team (Late st Contact Info) Description 10/14/2024 Lab Requisition [facility] - Main Lab [address] [facility] [place] [address] Surinder Zeng PA PCCP [address] [facility] [address] [place] [address] Vitamin D deficiency, unspecified; Other fatigue Social History Tobacco Use Types Packs/Day Years Used Date Smoking Tobacco: Never Assessed Comments Unknown Sex and Gender Information Value Date Recorded Sex Assigned at Not on file Legal Sex Female 7:18 PM EST Gender Identity Not on file Sexual Orientation Not on file documented as of this encounter Plan of Treatment Not on file documented as of this encounter Procedures Procedure Name Priority Date/Time Associated Diagnosis Comments VITAMIN D 25 HYDROXY Routine 10/14/2024 5:55 AM EST Vitamin D deficiency, unspecified Other fatigue VITAMIN B12 Routine 10/14/2024 5:55 AM EST Vitamin D deficiency, unspecified Other fatigue documented in this encounter Results * (ABNORMAL) Vitamin D 25 hydroxy (10/14/2024 5:55 AM EST) Vit D, 25-Hydroxy 27.4(L) 30.0 - 80.0 ng/mL LAB CHEMISTRY METHOD 10/14/2024 11:18 AM EST [facility] Blood Venous blood specimen / Unknown Venipuncture / Unknown 10/14/2024 5:55 AM EST 10/14/2024 9:56 AM EST Surinder WOLF LAB BLOOD ORDERABLES Margarita l Result [facility] [address] [place] [address], [place] [phone] * Vitamin B12 (10/14/2024 5:55 AM EST) Vitamin B-12 337 250 - 900 pcg/mL LAB CHEMISTRY METHOD 10/14/2024 11:[address] [facility] Blood Venous blood specimen / Unknown Venipuncture / Unknown 10/14/2024 5:55 AM EST 10/14/2024 9:56 AM EST Surinder WOLF LAB BLOOD ORDERABLES Margarita l Result Performing Organization Address City/[facility]/ZIP Co de Phone Number [facility] [address] [place] [address], documented in this encounter Visit Diagnoses Diagnosis Vitamin D deficiency, unspecified Other fatigue documented in this encounter Care Teams Ramp Service Employee Relationship Specialty Start Date End Date Surinder Zeng PA [address] [address] PCP - General Physician Lockstitch Zipper Setter 09/17/24 documented as of this encounter
--- OUTSIDE RECORDS SUMMARY | 2025-01-14 16:14 | XMS_ITS | Encounter Summary ---
Author Organization [facility] Address [address] [place] [address] Care Team Providers Care Weather Forcaster Name Role Phone Surinder Zeng Primary Care Provider +1 [phone] Encounter Details Date Type Department Care Team (Late st Contact Info) Description 12/01/2024 Lab Requisition [facility] - Main Lab [address] [facility] [place] [address] Surinder Zeng PA PCCP [address] [facility] [address] [place] [address] Other custodial (current) drug therapy Social History Tobacco Use Types Packs/Day Years [...] A1C Routine 12/02/2024 8:50 AM EST Other terminal worker (current) drug therapy documented in this encounter Results * Hemoglobin A1c (12/02/2024 8:50 AM EST) Hemoglobin A1C 5.7 <6.5 % LAB CHEMISTRY METHOD 12/02/2024 1:59 PM EST [facility] Mean Bld Glu Estim. 117 mg/dL LAB CHEMISTRY METHOD 12/02/2024 1:59 PM EST [facility] Blood Venous blood specimen / Unknown Venipuncture / Unknown 12/02/2024 8:50 AM EST 12/02/2024 11:38 AM EST Surinder WOLF LAB BLOOD ORDERABLES Margarita l Result [facility] LAB [address] [place] [address], documented in this encounter Visit Diagnoses Diagnosis Other custodial (current) drug therapy documented in this encounter Care Teams Weather Forcaster Relationship Specialty Start Date [place] [address] PCP - General Physician Print Color Matcher 09/17/24 documented as of this encounter
--- OUTSIDE RECORDS SUMMARY | 2025-01-14 16:14 | XMS_ITS | Encounter Summary ---
Author Organization [facility] Address [address] [place] [address] Care Team Providers Care Crisis Therapist Name Role Phone Surinder Zeng Primary Care Provider +1 [phone] Encounter Details Date Type Department Care Team (Late st Contact Info) Description 09/16/2024 Lab Requisition [facility] - Main Lab [address] [facility] [place] [address] Surinder Zeng PA PCCP [address] [facility] [address] [place], [place] [id number] Insomnia, unspecified; Hyperlipidemia, unspecified; Major depressive disorder, single episode, unspecified; Contusion of abdominal wall, initial encounter Social History Tobacco Use Types Packs/Day Years [...] Diagnosis Comments VITAMIN D 25 HYDROXY Routine 09/16/2024 5:58 AM EST Insomnia, unspecified Hyperlipidemia, unspecified Major depressive disorder, single episode, unspecified Contusion of abdominal wall, initial encounter COMPLETE BLOOD COUNT Routine 09/16/2024 5:58 AM EST Insomnia, unspecified Hyperlipidemia, unspecified Major depressive disorder, single episode, unspecified Contusion of abdominal wall, initial encounter VITAMIN B12 Routine 09/16/2024 5:58 AM EST Insomnia, unspecified Hyperlipidemia, unspecified Major depressive disorder, single episode, unspecified Contusion of abdominal wall, initial encounter documented in this encounter Results * Vitamin D 25 hydroxy (09/16/2024 5:58 AM EST) Pathologist [facility] Vit D, 25-Hydroxy 33.8 30.0 - 80.0 ng/mL LAB CHEMISTRY METHOD 09/16/2024 11:[address] [facility] Blood Venous blood specimen / Unknown Venipuncture / Unknown 09/16/2024 5:58 AM EST 09/16/2024 10:09 AM EST us Surinder WOLF LAB BLOOD ORDERABLES Margarita arvizu Result [facility] [address] [place] [address], * (ABNORMAL) Complete blood count (09/16/2024 5:58 AM EST) [facility] WBC 5.0 4.8 - 10.8 K/mcL LAB HEMETOLOGY METHOD 09/16/2024 10:[address] [facility] RBC 4.10 3.80 - 4.80 M/mcL LAB HEMETOLOGY METHOD 09/16/2024 10:[address] [facility] Hemoglobin 12.3 11.5 - 16.0 g/dL LAB HEMETOLOGY METHOD 09/16/2024 10:[address] [facility] Hematocrit 37.5 35.0 - 47.0 % LAB HEMETOLOGY METHOD 09/16/2024 10:[address] [facility] MCV 91.9 79.0 - 98.0 FL LAB HEMETOLOGY METHOD 09/16/2024 10:[address] [facility] MCH 30.1 27.0 - 32.0 pcg LAB HEMETOLOGY METHOD 09/16/2024 10:[address] [facility] MCHC 32.8 32.0 - 37.0 g/dL LAB HEMETOLOGY METHOD 09/16/2024 10:[address] [facility] RDW 14.8 11.0 - 15.0 % LAB HEMETOLOGY METHOD 09/16/2024 10:42 AM EST [facility] Platelets 164 130 - 400 K/mcL LAB HEMETOLOGY METHOD 09/16/2024 10:[address] [facility] MPV 11.8(H) 7.0 - 11.0 FL LAB HEMETOLOGY METHOD 09/16/2024 10:[address] [facility] NRBC 0.0 <1.0 % LAB HEMETOLOGY METHOD 09/16/2024 10:42 AM EST [facility] NRBC Absolute 0.00 <0.10 K/mcL LAB HEMETOLOGY METHOD 09/16/2024 10:[address] [facility] Blood Venous blood specimen / Unknown Venipuncture / Unknown 09/16/2024 5:58 AM EST 09/16/2024 10:09 AM EST Surinder WOLF LAB BLOOD ORDERABLES Margarita l Result [facility] [address] [place] [address], [place] [phone] * Vitamin B12 (09/16/2024 5:58 AM EST) [facility] Vitamin B-12 354 250 - 900 pcg/mL LAB CHEMISTRY METHOD 09/16/2024 12:15 PM EST [facility] Blood Venous blood specimen / Unknown Venipuncture / Unknown 09/16/2024 5:58 AM EST 09/16/2024 10:09 AM EST Surinder WOLF LAB BLOOD ORDERABLES Margarita l Result [facility] [address] [place] [address], [place] [phone] documented in this encounter Visit Diagnoses Diagnosis Insomnia, unspecified Hyperlipidemia, unspecified Major depressive disorder, single episode, unspecified Contusion of abdominal wall, initial encounter documented in this encounter Care Teams Crisis Therapist Relationship Specialty Start Date End Date Surinder Zeng PA [address] [address] PCP - General Physician Assistant Business Manager 09/17/24 documented as of this encounter
[2025-01-14 16:30] VITALS: BP 161/56; PULSE 62; RESP 18; TEMP 36.7; O2SAT 97
[2025-01-14] MEDS: diazePAM 10 MG/2 ML CARTRIDGE 2.5 MG IVPUSH (16:45)
[2025-01-14] MEDS: Famotidine/PF 20 MG/2 ML VIAL IVPUSH (16:46)
[2025-01-14 16:53] VITALS: BP 161/56; PULSE 62; RESP 18; TEMP 36.7; O2SAT 97
[2025-01-14 18:25] VITALS: BP 148/58; PULSE 70; RESP 19; TEMP 36.6; O2SAT 97
--- NOTE | 2025-01-14 18:42 | PC.NURSE ---
peripheral iv removed, verbal report given to ems personnel, pt returning home via ambulance
--- NOTE | 2025-01-14 19:02 | PC.NURSE ---
verbal report given to moris aragon, only staff on as pt lives in assisted living
== END 2025-01-14 18:59 | disposition home or self-care (01) ==
PROVIDERS: Physician Assistant Medical; Emergency Provider Emergency Medicine
DX: R10.2 Pelvic and perineal pain (principal); R07.89 Other chest pain; R11.2 Nausea with vomiting, unspecified; R06.02 Shortness of breath; I48.92 Unspecified atrial flutter; I10 Essential (primary) hypertension; Z79.01 Long term (current) use of anticoagulants; Z79.899 Other long term (current) drug therapy; Z03.818 Encounter for observation for suspected exposure to other biological agents ruled out
CPT/HCPCS: 0241U; 36415; 71046; 74177; 80053; 81003; 83735; 83880; 84484; 85025; 85610; 93005; 96374; 96375; 99284; J2470; J3360; Q9967

== ENCOUNTER → 2025-01-14 13:19 | Outpatient (BNV) | payer OTHER, SELFPAY | PROVIDERS: Emergency Provider Emergency Medicine; Visit Provider Internal Medicine Cardiovascular Disease | DX: R00.1 Bradycardia, unspecified (principal) | CPT/HCPCS: 93010 ==

== ENCOUNTER → 2025-01-14 13:20 | Outpatient (BNV) | payer OTHER, SELFPAY | PROVIDERS: Emergency Provider Emergency Medicine; Visit Provider Radiology Diagnostic Radiology | DX: K57.30 Diverticulosis of large intestine without perforation or abscess without bleeding (principal); K74.60 Unspecified cirrhosis of liver; R07.9 Chest pain, unspecified | CPT/HCPCS: 71046; 74177 ==

== ENCOUNTER 2025-01-15 07:32 | Emergency (ER) | payer OTHER, SELFPAY ==
[2025-01-15 07:39] VITALS: BP 130/96; BP 162/109; PULSE 67; PULSE 72; RESP 16; TEMP 36.8; O2SAT 95; O2SAT 97
--- NOTE | 2025-01-15 07:55 | ECG_ITS ---
Test Reason : abd pain Blood Pressure : */* mmHG Vent. Rate : 63 BPM Atrial Rate : 63 BPM P-R Int : 138 ms QRS Dur : 86 ms QT Int : 452 ms P-R-T Axes : 63 58 39 degrees QTcB Int : 462 ms Normal sinus rhythm Normal ECG When compared with ECG of 14-Jan-2025 13:33, No significant change was found Referred By: Juan C Garcia Electronically Signed By: Tiburcio Clemons
[2025-01-15] MEDS: ondansetron HCL 4 MG/2 ML VIAL IVPUSH (08:25)
[2025-01-15] MEDS: Lactated Ringers 1,000 ML 999 ML IV (08:26)
[2025-01-15 08:29] LABS: MANUAL DIFF FLAG NO
[2025-01-15 08:33] LABS: Basophils Percent Auto 0.7 % (0-2); Eosinophils Absolute Auto 0.1 X10*3/uL (0.0-0.4); Eosinophils Percent Auto 1.1 % (0-4); Hematocrit 39.7 % (37.0-47.0); Hemoglobin 13.8 g/dl (12.0-16.0); Imm Gran Abs Auto 0.03 X10*3/uL (0.00-0.03); Imm Gran Pct Auto 0.5 % (0.0-0.4); Lymphocytes Absolute Auto 0.7 X10*3/uL (1.2-4.9); Lymphocytes Percent Auto 11.9 % (20-40); Mean Corpuscular HGB Conc 34.8 g/dl (31.0-35.0); Mean Corpuscular Hemoglobin 28.9 pg (27.0-33.0); Mean Corpuscular Volume 83.1 fL (80.0-98.0); Mean Platelet Volume 10.7 fL (9.4-12.3); Monocytes Absolute Auto 0.3 X10*3/uL (0.1-1.2); Neutrophils Absolute Auto 4.4 x10*3/uL (2.0-8.3); Neutrophils Percent Auto 79.8 % (45-73); Platelet Count 114 X10*3/uL (160-400); Red Blood Count 4.78 X10*6/uL (4.20-5.50); Red Cell Distribution Width 13.2 % (11.0-16.0); White Blood Count 5.5 X10*3/uL (4.8-10.8)
[2025-01-15 08:35] VITALS: BP 150/54; PULSE 57; RESP 16; O2SAT 96
[2025-01-15 08:53] LABS: Troponin-I High Sensitivity 10.8 ng/L (<3.5-17.0)
--- NOTE | 2025-01-15 09:05 | PC.NURSE ---
biba from [facility] c/o generalized abd pain w/ associated nausea and dry heaving x yesterday. decreased PO intake x sunday. denies any episodes of vomiting/diarrhea/fevers/urinary sx. 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 pt reports being seen in ED yesterday w/ negative work up. upon ED arrival - a&ox4. vss and up to date aside from hypertensive - pt denies any chest pain/palpitations/sob. vss and up to date. pt verbalizing 7/10 nonradiating generalized abd pain at this time. 22gIV placed in the left hand - IVF/medication administered per provider order. effectiveness pending. pt on RA w/o difficulty. no sob/wob noted. respirations even/unlabored. plan of care ongoing. call soares placed within reach.
--- OUTSIDE RECORDS SUMMARY | 2025-01-15 09:05 | XMS_ITS | Encounter Summary ---
Author Organization [facility] Address [address] [place] [address] Care Team Providers Care Hourly Caregiver Name Role Phone Surinder Zeng Primary Care Provider +1 -[phone] Encounter Details Date Type Department Care Team (Late st Contact Info) Description 10/14/2024 Lab Requisition [facility] - Main Lab [address] [facility] [address] Surinder Zeng PA PCCP [address] [facility] [address] [place] [address] Vitamin D deficiency, unspecified; Other [...] LAB CHEMISTRY METHOD 10/14/2024 11:18 AM EST [facility] Blood Venous blood specimen / Unknown Venipuncture / Unknown 10/14/2024 5:55 AM EST 10/14/2024 9:56 AM EST Surinder WOLF LAB BLOOD ORDERABLES Margarita l Result [facility] [address] [place] [address], [place] [phone] * Vitamin B12 (10/14/2024 5:55 AM EST) Vitamin B-12 337 250 - 900 pcg/mL LAB CHEMISTRY METHOD 10/14/2024 11:34 AM EST [facility] Blood Venous blood specimen / Unknown Venipuncture / Unknown 10/14/2024 5:55 AM EST 10/14/2024 9:56 AM EST Surinder WOLF LAB BLOOD ORDERABLES Margarita l Result Performing Organization Address City/[facility]/ZIP Co de Phone Number [facility] [address] [place] [address], documented in this encounter Visit Diagnoses Diagnosis Vitamin D deficiency, unspecified Other fatigue documented in this encounter Care Teams Hourly Caregiver Relationship Specialty Start Date End Date Surinder Zeng PA [address] [address] PCP - General Physician Metal Fabrication Supervisor 09/17/24 documented as of this encounter
--- OUTSIDE RECORDS SUMMARY | 2025-01-15 09:05 | XMS_ITS | Encounter Summary ---
Author Organization [facility] Address [address] [place] [address] Care Team Providers Care Brim Presser Name Role Phone Surinder Zeng Primary Care Provider +1 -[phone] Encounter Details Date Type Department Care Team (Late st Contact Info) Description 12/01/2024 Lab Requisition [facility] - Main Lab [address] [facility] [place] [address] Surinder Zeng PA PCCP [address] [facility] [address] [place] [address] Other email administrator (current) drug therapy Social History Tobacco Use [...] A1C Routine 12/02/2024 8:50 AM EST Other email administrator (current) drug therapy documented in this encounter Results * Hemoglobin A1c (12/02/2024 8:50 AM EST) Hemoglobin A1C 5.7 <6.5 % LAB CHEMISTRY METHOD 12/02/2024 1:59 PM EST [facility] Mean Bld Glu Estim. 117 mg/dL LAB CHEMISTRY METHOD 12/02/2024 1:59 PM EST [facility] Blood Venous blood specimen / Unknown Venipuncture / Unknown 12/02/2024 8:50 AM EST 12/02/2024 11:38 AM EST Surinder WOLF LAB BLOOD ORDERABLES Margarita l Result [facility] LAB [address] [place] [address], documented in this encounter Visit Diagnoses Diagnosis Other skilled nursing (current) drug therapy documented in this encounter Care Teams Brim Presser Relationship Specialty Start Date [place] [address] PCP - General Physician Sap Hana Developer 09/17/24 documented as of this encounter
--- OUTSIDE RECORDS SUMMARY | 2025-01-15 09:05 | XMS_ITS | Clinical Summary ---
Author Organization 299 [facility] Address [address] [place] [address] Phone Care Team Providers Care Mud Cleaner Operator Name Role Phone Surinder Zeng Primary Care Provider +1 -[phone] Encounters Date Type Department Care Team Description 12/01/2024 Lab Requisition [facility] - Main Lab [address] [facility] [place] [address] Surinder Zeng PA Other fpc (current) drug therapy from Last 3 Months [...] Vaccine ( - 2023-2 5 season) 2024 Cholesterol Screening (Lipid Panel) 09/17/2024 Colorectal Cancer Screening: Colonoscopy 09/17/2024 Depression Screening 09/17/2024 Falls Risk Assessment 09/17/2024 Hepatitis C Screening 09/17/2024 Osteoporosis Screening (Bone Density Screening) 09/17/2024 Social Influencers of Health Screening 09/17/2024 RSV Immunization Adult Patie nts (1 - 1-dose 75+ series) 2024 Influenza Vaccine (Season Ended) 2025 HIB Vaccines Aged Out No longer eligi [...] A1C Routine 12/02/2024 8:50 AM EST Other fpc (current) drug therapy from Last 3 Months Results * Hemoglobin A1c (12/02/2024 8:50 AM EST) Hemoglobin A1C 5.7 <6.5 % LAB CHEMISTRY METHOD 12/02/2024 1:59 PM EST [facility] Mean Bld Glu Estim. 117 mg/dL LAB CHEMISTRY METHOD 12/02/2024 1:59 PM EST [facility] Blood Venous blood specimen / Unknown Venipuncture / Unknown 12/02/2024 8:50 AM EST 12/02/2024 11:38 AM EST Surinder WOLF LAB BLOOD ORDERABLES Margarita l Result [facility] [address] [place] [address], from [place] [address] [place] [address] [place]ICAID - [place] [facility] Member Subscriber Plan / Payer (Ef fective 2024-Present) Name:Pamella Madrid Relation to Subscriber:Spouse Name:PAMELLA MADRID Date of :1949 Address: [address] [place] [address] Payer ID:[id number] Group ID:Not on file Type:Not on file Address: [address] [place] [address] Care Teams Mud Cleaner Operator Relationship Specialty Start Date End Date Surinder Zeng PA [address] [address] PCP - General Physician Rocket Motor Tester 09/17/24
[2025-01-15 09:06] LABS: Influenza A PCR NEGATIVE (Negative); Influenza B PCR NEGATIVE (Negative); Resp Syncy Virus RNA Qual PCR NEGATIVE (Negative); SARS COV2 PCR INHOUSE NEGATIVE (Negative)
--- OUTSIDE RECORDS SUMMARY | 2025-01-15 09:06 | XMS_ITS | Encounter Summary ---
Author Organization [facility] Address [address] [place] [address] Care Team Providers Care Charge Weigher Name Role Phone Surinder Zeng Primary Care Provider [phone] Encounter Details Date Type Department Care Team (Late st Contact Info) Description 09/16/2024 Lab Requisition [facility] - Main Lab [address] [facility] [place] [address] Surinder Zeng PA PCCP [address] [facility] [address] [place], [place] [id number] Insomnia, unspecified; Hyperlipidemia, unspecified; Major depressive disorder, [...] 25 hydroxy (09/16/2024 5:58 AM EST) Pathologist [facility] Vit D, 25-Hydroxy 33.8 30.0 - 80.0 ng/mL LAB CHEMISTRY METHOD 09/16/2024 11:10 AM [facility] Blood Venous blood specimen / Unknown Venipuncture / Unknown 09/16/2024 5:58 AM EST 09/16/2024 10:09 AM EST us Surinder WOLF LAB BLOOD ORDERABLES Margarita arvizu Result [facility] [address] [place] [address], * (ABNORMAL) Complete blood count (09/16/2024 5:58 AM EST) [facility] WBC 5.0 4.8 - 10.8 K/mcL LAB HEMETOLOGY METHOD 09/16/2024 10:42 AM [facility] RBC 4.10 3.80 - 4.80 M/mcL LAB HEMETOLOGY METHOD 09/16/2024 10:42 AM [facility] Hemoglobin 12.3 11.5 - 16.0 g/dL LAB HEMETOLOGY METHOD 09/16/2024 10:42 AM [facility] Hematocrit 37.5 35.0 - 47.0 % LAB HEMETOLOGY METHOD 09/16/2024 10:42 AM [facility] MCV 91.9 79.0 - 98.0 FL LAB HEMETOLOGY METHOD 09/16/2024 10:42 AM [facility] MCH 30.1 27.0 - 32.0 pcg LAB HEMETOLOGY METHOD 09/16/2024 10:42 AM [facility] MCHC 32.8 32.0 - 37.0 g/dL LAB HEMETOLOGY METHOD 09/16/2024 10:42 AM [facility] RDW 14.8 11.0 - 15.0 % LAB HEMETOLOGY METHOD 09/16/2024 10:[address] [facility] Platelets 164 130 - 400 K/mcL LAB HEMETOLOGY METHOD 09/16/2024 10:42 AM [facility] MPV 11.8(H) 7.0 - 11.0 FL LAB HEMETOLOGY METHOD 09/16/2024 10:42 AM [facility] NRBC 0.0 <1.0 % LAB HEMETOLOGY METHOD 09/16/2024 10:[address] [facility] NRBC Absolute 0.00 <0.10 K/mcL LAB HEMETOLOGY METHOD 09/16/2024 10:42 AM [facility] Blood Venous blood specimen / Unknown Venipuncture / Unknown 09/16/2024 5:58 AM EST 09/16/2024 10:09 AM EST Surinder WOLF LAB BLOOD ORDERABLES Margarita l Result [facility] [address] [place] [address], [place] [phone] * Vitamin B12 (09/16/2024 5:58 AM EST) [facility] Vitamin B-12 354 250 - 900 pcg/mL LAB CHEMISTRY METHOD 09/16/2024 12:[address] [facility] Blood Venous blood specimen / Unknown Venipuncture / Unknown 09/16/2024 5:58 AM EST 09/16/2024 10:09 AM EST Surinder WOLF LAB BLOOD ORDERABLES Margarita l Result [facility] [address] [place] [address], [place] [phone] documented in this encounter Visit Diagnoses Diagnosis Insomnia, unspecified Hyperlipidemia, unspecified Major depressive disorder, single episode, unspecified Contusion of abdominal wall, initial encounter documented in this encounter Care Teams Charge Weigher Relationship Specialty Start Date End Date Surinder Zeng PA [address] [address] PCP - General Physician [employer] Manager 09/17/24 documented as of this encounter
[2025-01-15 09:10] LABS: Alanine Aminotransferase 51 U/L (0-31); Albumin Level 3.9 g/dL (3.5-5.0); Alkaline Phosphatase 73 U/L (39-117); Anion Gap 12 (12-20); Aspartate Amino Transferase 46 U/L (5-31); Bilirubin Direct 0.3 mg/dL (0.0-0.5); Bilirubin Total 0.9 mg/dL (0.0-1.0); Blood Urea Nitrogen 11 mg/dL (9-16); Calcium 8.9 mg/dL (8.4-10.2); Carbon Dioxide 25 mmol/L (22-29); Chloride 111 mmol/L (96-108); Creatinine Clr Calc Pharmacy 59.6; Estimated Glomerular Filt Rate > 60; Glucose Random 104 mg/dL (60-115); Lipase 17 U/L (8-78); Potassium 3.7 mmol/L (3.3-5.1); Sodium 144 mmol/L (135-145); Total Protein 6.1 g/dL (6.5-8.0)
--- NOTE | 2025-01-15 09:26 | ED.GENADULT ---
HPI - General Adult General Chief complaint: Abdominal Pain Stated complaint: ABD PAIN NAUSEA, FROM [facility] PER EMS Time Seen by Provider: 01/15/25 07:53 Source: patient Mode of arrival: EMS Limitations: no limitations History of Present Illness HPI narrative: This is a 74-year-old woman with a past medical history of paroxysmal atrial flutter on Eliquis, migraines, essential tremor, hepatitis-C, liver cirrhosis, osteoporosis, right breast cancer status post mastectomy in remission, hypertension, hyperlipidemia , history of cholecystectomy, history of appendectomy, history of hysterectomy and chronic abdominal pain who is brought in by EMS for evaluation of abdominal pain. Patient states this has been going on for years. She states generalized abdominal pain. She states no radiaiton of pain to her back or chest. She states no trauma. She states no emesis, but states she findings her self dry-heaving at times. She states no diarrhea. She states no fevers or chills. She states no dysuria, urinary frequecy/urgency or flank pain. She state no headache, cough or congestion. Related Data Home Medications ?Medication ?Instructions ?Recorded ?Confirmed amlodipine 5 mg tablet 5 mg PO DAILY 02/22/23 11/19/24 benztropine 0.5 mg tablet 0.5 mg PO DAILY 02/22/23 11/19/24 clonazepam 0.5 mg tablet 0.5 mg PO DAILY PRN 02/22/23 11/19/24 docusate sodium 100 mg capsule 100 mg PO DAILY 02/22/23 11/13/23 famotidine 40 mg tablet 0 mg PO 02/22/23 11/13/23 gabapentin 400 mg capsule 400 mg PO TID 02/22/23 11/13/23 hydroxyzine pamoate 25 mg capsule 25 mg PO BID 02/22/23 11/13/23 melatonin 3 mg tablet 0 mg PO 02/22/23 11/19/24 methylphenidate HCl 54 mg 54 mg PO DAILY 02/22/23 11/13/23 tablet,extended release 24 hr metoprolol succinate 25 mg 25 mg PO DAILY 02/22/23 11/19/24 tablet,extended release 24 hr olanzapine 5 mg tablet 5 mg PO BEDTIME 02/22/23 11/19/24 ondansetron HCl 4 mg tablet 0 mg PO 02/22/23 11/19/24 pantoprazole 20 mg tablet,delayed 20 mg PO DAILY 02/22/23 11/19/24 release promethazine 12.5 mg tablet 25 mg PO BID 02/22/23 11/13/23 trazodone 150 mg tablet 150 mg PO BEDTIME 02/22/23 11/13/23 apixaban 5 mg tablet (Eliquis) 5 mg PO BID 11/13/23 11/19/24 acetaminophen 325 mg tablet 650 mg PO Q4H PRN Fever Or Pain 09/10/24 09/10/24 amlodipine 5 mg tablet 5 mg PO DAILY 09/10/24 09/10/24 apixaban 5 mg tablet (Eliquis) 5 mg PO BID 09/10/24 09/10/24 atorvastatin 80 mg tablet 80 mg PO DAILY 09/10/24 09/10/24 benztropine 0.5 mg tablet 0.5 mg PO DAILY 09/10/24 09/10/24 carbidopa 25 mg-levodopa 100 mg 1 tab PO BID 09/10/24 09/10/24 tablet clonazepam 0.5 mg tablet 0.5 mg PO BID 09/10/24 09/10/24 escitalopram oxalate 10 mg tablet 10 mg PO DAILY 09/10/24 09/10/24 escitalopram oxalate 5 mg tablet 5 mg PO DAILY 09/10/24 09/10/24 latanoprost 0.005 % eye drops 1 drp ophthalmic (eye) BEDTIME 09/10/24 09/10/24 melatonin 3 mg tablet 9 mg PO BEDTIME 09/10/24 09/10/24 metoclopramide HCl 5 mg tablet 5 mg PO Q6H PRN GI upset 09/10/24 09/10/24 metoprolol succinate 25 mg 25 mg PO DAILY 09/10/24 09/10/24 tablet,extended release 24 hr mirtazapine 15 mg tablet 15 mg PO BEDTIME 09/10/24 09/10/24 olanzapine 5 mg tablet 5 mg PO BEDTIME 09/10/24 09/10/24 ondansetron HCl 4 mg tablet 4 mg PO Q6H PRN Nausea And Vomiting 09/10/24 09/10/24 pantoprazole 20 mg tablet,delayed 20 mg PO DAILY@0630 09/10/24 09/10/24 release polyethylene glycol 3350 17 17 g PO DAILY 09/10/24 09/10/24 gram/dose oral powder (Miralax) sucralfate 1 gram tablet 1 g PO QID 09/10/24 09/10/24 atorvastatin 80 mg tablet 80 mg PO DAILY 11/19/24 11/19/24 escitalopram oxalate 10 mg tablet 10 mg PO DAILY 11/19/24 11/19/24 escitalopram oxalate 5 mg tablet 5 mg PO DAILY 11/19/24 11/19/24 metoclopramide HCl 5 mg tablet 5 mg PO QIDACHS 11/19/24 11/19/24 mirtazapine 15 mg tablet 15 mg PO BEDTIME 11/19/24 11/19/24 polyethylene glycol 3350 17 17 g PO DAILY 11/19/24 11/19/24 gram/dose oral powder sucralfate 1 gram tablet 1 g PO BID 11/19/24 11/19/24 timolol 0.5 %-dorzolamide 2 drp ophthalmic (eye) 11/19/24 11/19/24 %-latanprost 0.005 % (PF) eye drops Previous Rx's ?Medication ?Instructions ?Recorded carbidopa 25 mg-levodopa 100 mg 1 tab PO TID 30 days #90 tabs 11/27/24 tablet galcanezumab-gnlm 120 mg/mL 240 mg (2 mL) subcut ONCE 30 days 11/27/24 subcutaneous pen injector #2 mL (Emgality Pen) magnesium oxide 400 mg (241.3 mg 400 mg PO BEDTIME 30 days #30 tabs 11/27/24 magnesium) tablet riboflavin (vitamin B2) 400 mg 400 mg PO DAILY 30 days #30 tabs 11/27/24 tablet rimegepant 75 mg disintegrating 75 mg PO ONCE PRN migraine 11/27/24 tablet (Nurtec ODT) headache 30 days #16 tabs Allergies Allergy/AdvReac Type Severity Reaction Status Date / Time alendronate sodium Allergy Severe Rash Verified 01/15/25 07:43 latex Allergy Severe Hives Verified 01/15/25 07:43 amitriptyline Allergy Hives Verified 01/15/25 07:43 meperidine [From Demerol] Allergy Unknown Verified 01/15/25 07:43 Review of Systems Review of Systems: ROS as per [facility] Past Medical History Medical History History of breast cancer Osteoporosis HTN (hypertension) Depression History of hepatitis C Cirrhosis of liver CTS (carpal tunnel syndrome) Paroxysmal atrial flutter Surgical History H/O: hysterectomy Hx of appendectomy Hx of cholecystectomy Family History Family History Mother Cancer HTN (hypertension) Social History Social History Alcohol intake: former Patient Tobacco Use Status: Never used Tobacco Smoked in Last 30 Days: No Use of substances other than those prescribed or required for medical reasons: Yes Substance Use Type: Marijuana Substance Use Frequency: Daily Advance Directives: Yes Advance Directives on File: Yes Advance Directives Date on File: 09/10/24 Do you have a plan to hurt others: No Plan service: No Physical Exam ED Vital Signs: Vital Signs - 24 hr 01/15/25 07:39 01/15/25 08:35 Temperature 98.2 F Pulse Rate 67 57 Respiratory Rate 16 16 Blood Pressure 162/109 H 150/54 H Pulse Oximetry 95 96 Oxygen Delivery Method Room Air Room Air BMI result Body Mass Index 30.0 Gen: NAD, AOx3 HEENT: NCAT, EOMI, normal conjunctiva CV: RRR Pulm: CTAB, no increased work of breathing GI: Soft, mild diffuse TTP, ND, no rebound, guarding or rigidity Neuro: Grossly non focal Medications Administered Discontinued Medications Generic Name Dose Route Start Last Admin Trade Name Freq PRN Reason Stop Dose Admin Lactated Ringer's 1,000 mls @ 999 mls/hr 01/15/25 07:54 01/15/25 08:26 Lr IV 01/15/25 08:54 999 mls/hr .Q1H1M ONE Administration Ondansetron HCl 4 mg 01/15/25 07:54 01/15/25 08:25 Ondansetron Hcl 4 Mg/2 Ml Vial IVPUSH 01/15/25 07:55 4 mg ONCE ONE Administration Medical Decision Making Medical Decision Making MDM Narrative: Differential diagnosis includes, but is not limited to viral syndrome, gastritis, IBS, gastroenteritis, acute kidney injury, electrolyte derangement. Patient is afebrile and hemodynamically stable on room air. Exam is benign and reassuring. I reviewed labs and viral testing as below. Patient is treated supportively with Zofran and Maalox. 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 Further, CT images on 01/14/2025 were unremarkable. On re-examination, patient is well-appearing and in no acute distress. There is no indication for further emergent evaluation in this otherwise well-appearing patient as above. Patient is provided written and verbal instructions, educational materials, recommendations for outpatient follow-up, strict return precautions and teach back is performed. Patient states understanding and agreement with plan of care. Patient is discharged home in stable and improved condition. Admission/Observation Consideration of admission/observation: Escalation of care including admission/observation considered Lab Data MDM Lab Attestation statement: I reviewed the patient's lab results. per my interpretation, labs demonstrates stable chronic anemia with hemoglobin 114, mild transaminitis which is nonspecific with AST 46 and 51 ( previous 39 and 12, respectively) lipase within normal limits, troponin 10.8 ( previous 7.8), patient has negative for COVID-19 / influenza /RSV 01/15/25 08:23 01/15/25 08:47 Labs: Lab Results 01/15/25 01/15/25 Range/Units 08:23 08:47 WBC 5.5 (4.8-10.8) X10*3/uL RBC 4.78 (4.20-5.50) X10*6/uL Hgb 13.8 (12.0-16.0) g/dl Hct 39.7 (37.0-47.0) % MCV 83.1 (80.0-98.0) fL MCH 28.9 (27.0-33.0) pg MCHC 34.8 (31.0-35.0) g/dl RDW 13.2 (11.0-16.0) % Plt Count 114 L (160-400) X10*3/uL MPV 10.7 (9.4-12.3) fL Immature Gran % (Auto) 0.5 H (0.0-0.4) % Neut % (Auto) 79.8 H (45-73) % Lymph % (Auto) 11.9 L (20-40) % Reynolds % (Auto) 6.0 (2-11) % Eos % (Auto) 1.1 (0-4) % Baso % (Auto) 0.7 (0-2) % Lymph # (Auto) 0.7 L (1.2-4.9) X10*3/uL Reynolds # (Auto) 0.3 (0.1-1.2) X10*3/uL Eos # (Auto) 0.1 (0.0-0.4) X10*3/uL Baso # (Auto) 0.0 (0.0-0.2) X10*3/uL Abs Immat Gran (auto) 0.03 (0.00-0.03) X10*3/uL Absolute Neuts (auto) 4.4 (2.0-8.3) x10*3/uL Absolute Nucleated RBC 0.000 (0.0-0.012) X10*3/uL Nucleated RBC % (auto) 0.0 (0.0-0.2) /100WBC Hold Purple Top SEE NOTE Sodium 144 (135-145) mmol/L Potassium 3.7 (3.3-5.1) mmol/L Chloride 111 H (96-108) mmol/L Carbon Dioxide 25 (22-29) mmol/L Anion Gap 12 (12-20) BUN 11 (9-16) mg/dL Creatinine 0.77 (0.5-1.4) mg/dL Estim Creat Clear Calc 59.6 Estimated GFR > 60 Random Glucose 104 (60-115) mg/dL Calcium 8.9 (8.4-10.2) mg/dL Total Bilirubin 0.9 (0.0-1.0) mg/dL Direct Bilirubin 0.3 (0.0-0.5) mg/dL AST 46 H (5-31) U/L ALT 51 H (0-31) U/L Alkaline Phosphatase 73 (39-117) U/L Troponin I High Sens 10.8 (<3.5-17.0) ng/L Total Protein 6.1 L (6.5-8.0) g/dL Albumin 3.9 (3.5-5.0) g/dL Lipase 17 (8-78) U/L Influenza Type A (PCR) NEGATIVE (Negative) Influenza Type B (PCR) NEGATIVE (Negative) RSV RNA Qual (PCR) NEGATIVE (Negative) SARS-CoV-2 RNA (RT-PCR) NEGATIVE (Negative) Discharge Plan Discharge Clinical Impression: Abdominal pain Patient Disposition: Home, Self-Care Instructions: Abdominal Pain (ED) Additional Instructions: You were seen and evaluated in the emergency room. Your vital signs, physical exam and blood work were very reassuring with no acute/emergent findings. You tested negative for COVID-19, Influenza, and RSV. Please be sure to follow up with your primary care doctor and director speech and hearing in the next 3-5 days. Please return to the emergency room if you develop any worsening symptoms. Prescriptions: No Action Emgality Pen 120 mg/mL pen injector 240 mg subcut ONCE 30 Days Qty: 2 0RF Rx Instructions: Loading dose: 120 mg subcu injection x2 in alternate sites (total 240 mg). To be followed by maintenance dose of 120 mg subcu q.month. carbidopa-levodopa 25-100 mg tablet 1 tab PO TID 30 Days Qty: 90 6RF Rx Instructions: take w/ a cracker 30 minutes before breakfast and dinner, riboflavin (vitamin B2) 400 mg tablet 400 mg PO DAILY 30 Days Qty: 30 6RF Rx Instructions: in am magnesium oxide 400 mg (241.3 mg magnesium) tablet 400 mg PO BEDTIME 30 Days Qty: 30 6RF Rx Instructions: may hold for loose stools Nurtec ODT 75 mg tablet,disintegrating 75 mg PO ONCE MDD 1 tab PRN (Reason: migraine headache) 30 Days Qty: 16 6RF latanoprost 0.005 % drops 1 drp ophthalmic (eye) BEDTIME Rx Instructions: Both eyes atorvastatin 80 mg tablet 80 mg PO DAILY acetaminophen 325 mg tablet 650 mg PO Q4H PRN (Reason: Fever Or Pain) benztropine 0.5 mg tablet 0.5 mg PO DAILY sucralfate 1 gram tablet 1 g PO QID ondansetron HCl 4 mg tablet 4 mg PO Q6H PRN (Reason: Nausea And Vomiting) clonazepam 0.5 mg tablet 0.5 mg PO BID olanzapine 5 mg tablet 5 mg PO BEDTIME melatonin 3 mg tablet 9 mg PO BEDTIME amlodipine 5 mg tablet 5 mg PO DAILY pantoprazole 20 mg tablet,delayed release (DR/EC) 20 mg PO DAILY@0630 metoclopramide HCl 5 mg tablet 5 mg PO Q6H PRN (Reason: GI upset) mirtazapine 15 mg tablet 15 mg PO BEDTIME metoprolol succinate 25 mg tablet extended release 24 hr 25 mg PO DAILY polyethylene glycol 3350 [Miralax] 17 gram/dose Powder 17 g PO DAILY Rx Instructions: Mix 17 gm in 8 oz of water carbidopa-levodopa 25-100 mg tablet 1 tab PO BID escitalopram oxalate 10 mg tablet 10 mg PO DAILY Rx Instructions: Take with 5 mg for a total dose =15 mg escitalopram oxalate 5 mg tablet 5 mg PO DAILY Rx Instructions: Take with 10 mg for a total dose =15mg Eliquis 5 mg tablet 5 mg PO BID metoprolol succinate 25 mg tablet extended release 24 hr 25 mg PO DAILY olanzapine 5 mg tablet 5 mg PO BEDTIME pantoprazole 20 mg tablet,delayed release (DR/EC) 20 mg PO DAILY trazodone 150 mg tablet 150 mg PO BEDTIME amlodipine 5 mg tablet 5 mg PO DAILY benztropine 0.5 mg tablet 0.5 mg PO DAILY melatonin 3 mg tablet 0 mg PO docusate sodium 100 mg capsule 100 mg PO DAILY hydroxyzine pamoate 25 mg capsule 25 mg PO BID clonazepam 0.5 mg tablet 0.5 mg PO DAILY PRN ondansetron HCl 4 mg tablet 0 mg PO gabapentin 400 mg capsule 400 mg PO TID methylphenidate HCl 54 mg tablet extended release 24hr 54 mg PO DAILY famotidine 40 mg tablet 0 mg PO promethazine 12.5 mg tablet 25 mg PO BID Eliquis 5 mg tablet 5 mg PO BID escitalopram oxalate 5 mg tablet 5 mg PO DAILY escitalopram oxalate 10 mg tablet 10 mg PO DAILY polyethylene glycol 3350 17 gram/dose powder 17 g PO DAILY sucralfate 1 gram tablet 1 g PO BID atorvastatin 80 mg tablet 80 mg PO DAILY [id number]-trsrdpt(PF) 0.5-2-0.005 % drops ophthalmic (eye) mirtazapine 15 mg tablet 15 mg PO BEDTIME metoclopramide HCl 5 mg tablet 5 mg PO QIDACHS Print Language: Bangladeshi
[2025-01-15] MEDS: Magnesium Hydrox/Alum Hydrox 30 ML ORAL.SUSP 15 ML PO (10:02)
[2025-01-15 10:57] VITALS: BP 180/72; PULSE 67; RESP 18; TEMP 36.3; O2SAT 97
== END 2025-01-15 10:57 | disposition home or self-care (01) ==
PROVIDERS: Emergency Provider Emergency Medicine; PCP Family Medicine
DX: R10.2 Pelvic and perineal pain (principal); I48.92 Unspecified atrial flutter; R11.0 Nausea; Z79.01 Long term (current) use of anticoagulants; Z79.899 Other long term (current) drug therapy; Z03.818 Encounter for observation for suspected exposure to other biological agents ruled out
CPT/HCPCS: 0241U; 80048; 80076; 83690; 84484; 85025; 93005; 96361; 96374; 99284; 99285; J2405; J7120

== ENCOUNTER → 2025-01-15 07:55 | Outpatient (BNV) | payer OTHER, SELFPAY | PROVIDERS: Emergency Provider Emergency Medicine; PCP Family Medicine; Visit Provider Internal Medicine Cardiovascular Disease | DX: R10.9 Unspecified abdominal pain (principal) | CPT/HCPCS: 93010 ==

== ENCOUNTER 2025-03-01 04:24 | Emergency (ER) | payer OTHER, SELFPAY ==
--- NOTE | ~2025-03-01 | CT_ITS ---
CLINICAL HISTORY: epigastric and RLQ pain, TTP CT abdomen and pelvis with contrast Comparison: None Findings: No consolidation or effusion. Solid organs are within normal limits. No abnormal findings in the gallbladder fossa. No renal stones. No bowel obstruction, pneumoperitoneum, or pneumatosis. Pelvic contents unremarkable. The appendix is not visualized with no imaging evidence of appendicitis. No acute fracture. IMPRESSION: No acute findings. This document has been electronically signed by: Earnest Watson MD on 03/01/2025 08:45:04
[2025-03-01 04:34] VITALS: BP 150/72; PULSE 63; RESP 16; TEMP 37.2; O2SAT 97
[2025-03-01 04:35] VITALS: BP 150/72; PULSE 63; RESP 16; TEMP 37.2; O2SAT 97; BMI 29.2
[2025-03-01 05:01] LABS: MANUAL DIFF FLAG NO
[2025-03-01 05:03] LABS: Basophils Absolute Auto 0.1 X10*3/uL (0.0-0.2); Basophils Percent Auto 0.8 % (0-2); Eosinophils Absolute Auto 0.1 X10*3/uL (0.0-0.4); Eosinophils Percent Auto 1.7 % (0-4); Hematocrit 42.8 % (37.0-47.0); Hemoglobin 15.2 g/dl (12.0-16.0); Imm Gran Abs Auto 0.02 X10*3/uL (0.00-0.03); Imm Gran Pct Auto 0.3 % (0.0-0.4); Lymphocytes Absolute Auto 1.2 X10*3/uL (1.2-4.9); Lymphocytes Percent Auto 19.9 % (20-40); Mean Corpuscular HGB Conc 35.5 g/dl (31.0-35.0); Mean Corpuscular Hemoglobin 29.7 pg (27.0-33.0); Mean Corpuscular Volume 83.6 fL (80.0-98.0); Mean Platelet Volume 10.7 fL (9.4-12.3); Monocytes Absolute Auto 0.4 X10*3/uL (0.1-1.2); Monocytes Percent Auto 6.6 % (2-11); Neutrophils Absolute Auto 4.2 x10*3/uL (2.0-8.3); Neutrophils Percent Auto 70.7 % (45-73); Platelet Count 142 X10*3/uL (160-400); Red Blood Count 5.12 X10*6/uL (4.20-5.50); Red Cell Distribution Width 12.7 % (11.0-16.0); White Blood Count 5.9 X10*3/uL (4.8-10.8)
[2025-03-01 05:17] LABS: Alanine Aminotransferase 59 U/L (0-31); Albumin Level 4.3 g/dL (3.5-5.0); Alkaline Phosphatase 85 U/L (39-117); Anion Gap 15 (12-20); Aspartate Amino Transferase 54 U/L (5-31); Bilirubin Total 0.8 mg/dL (0.0-1.0); Blood Urea Nitrogen 16 mg/dL (9-16); Calcium 9.3 mg/dL (8.4-10.2); Carbon Dioxide 21 mmol/L (22-29); Chloride 109 mmol/L (96-108); Creatinine Clr Calc Pharmacy 47.1; Estimated Glomerular Filt Rate 57; Glucose Random 124 mg/dL (60-115); Lipase 33 U/L (8-78); Potassium 3.4 mmol/L (3.3-5.1); Sodium 142 mmol/L (135-145); Total Protein 6.8 g/dL (6.5-8.0)
[2025-03-01 05:44] LABS: Influenza A PCR NEGATIVE (Negative); Influenza B PCR NEGATIVE (Negative); Resp Syncy Virus RNA Qual PCR NEGATIVE (Negative); SARS COV2 PCR INHOUSE NEGATIVE (Negative)
--- NOTE | 2025-03-01 07:21 | ED_ITS ---
HPI - Abdominal Pain General Chief Complaint: Abdominal Pain Stated Complaint: N/V PER EMS Time Seen by Provider: 03/01/25 06:39 History of Present Illness ED Provider: Yoshi Herrera MD HPI narrative: 74-year-old female with chronic recurrent nausea and abdominal pain with worsening nausea and abdominal pain mostly epigastric some in the right lower quadrant. She has a history of appendectomy and hysterectomy she has been given the diagnosis of gastroparesis in the past. Nothing to eat accept the small amount of soup yesterday. Denies fever denies jaundice MD elicited complaint: abdominal pain Related Data Home Medications ?Medication ?Instructions ?Recorded ?Confirmed amlodipine 5 mg tablet 5 mg PO DAILY 02/22/23 11/19/24 benztropine 0.5 mg tablet 0.5 mg PO DAILY 02/22/23 11/19/24 clonazepam 0.5 mg tablet 0.5 mg PO DAILY PRN 02/22/23 11/19/24 docusate sodium 100 mg capsule 100 mg PO DAILY 02/22/23 11/13/23 famotidine 40 mg tablet 0 mg PO 02/22/23 11/13/23 gabapentin 400 mg capsule 400 mg PO TID 02/22/23 11/13/23 hydroxyzine pamoate 25 mg capsule 25 mg PO BID 02/22/23 11/13/23 melatonin 3 mg tablet 0 mg PO 02/22/23 11/19/24 methylphenidate HCl 54 mg 54 mg PO DAILY 02/22/23 11/13/23 tablet,extended release 24 hr metoprolol succinate 25 mg 25 mg PO DAILY 02/22/23 11/19/24 tablet,extended release 24 hr olanzapine 5 mg tablet 5 mg PO BEDTIME 02/22/23 11/19/24 ondansetron HCl 4 mg tablet 0 mg PO 02/22/23 11/19/24 pantoprazole 20 mg tablet,delayed 20 mg PO DAILY 02/22/23 11/19/24 release promethazine 12.5 mg tablet 25 mg PO BID 02/22/23 11/13/23 trazodone 150 mg tablet 150 mg PO BEDTIME 02/22/23 11/13/23 apixaban 5 mg tablet (Eliquis) 5 mg PO BID 11/13/23 11/19/24 acetaminophen 325 mg tablet 650 mg PO Q4H PRN Fever Or Pain 09/10/24 09/10/24 amlodipine 5 mg tablet 5 mg PO DAILY 09/10/24 09/10/24 apixaban 5 mg tablet (Eliquis) 5 mg PO BID 09/10/24 09/10/24 atorvastatin 80 mg tablet 80 mg PO DAILY 09/10/24 09/10/24 benztropine 0.5 mg tablet 0.5 mg PO DAILY 09/10/24 09/10/24 carbidopa 25 mg-levodopa 100 mg 1 tab PO BID 09/10/24 09/10/24 tablet clonazepam 0.5 mg tablet 0.5 mg PO BID 09/10/24 09/10/24 escitalopram oxalate 10 mg tablet 10 mg PO DAILY 09/10/24 09/10/24 escitalopram oxalate 5 mg tablet 5 mg PO DAILY 09/10/24 09/10/24 latanoprost 0.005 % eye drops 1 drp ophthalmic (eye) BEDTIME 09/10/24 09/10/24 melatonin 3 mg tablet 9 mg PO BEDTIME 09/10/24 09/10/24 metoclopramide HCl 5 mg tablet 5 mg PO Q6H PRN GI upset 09/10/24 09/10/24 metoprolol succinate 25 mg 25 mg PO DAILY 09/10/24 09/10/24 tablet,extended release 24 hr mirtazapine 15 mg tablet 15 mg PO BEDTIME 09/10/24 09/10/24 olanzapine 5 mg tablet 5 mg PO BEDTIME 09/10/24 09/10/24 ondansetron HCl 4 mg tablet 4 mg PO Q6H PRN Nausea And Vomiting 09/10/24 09/10/24 pantoprazole 20 mg tablet,delayed 20 mg PO DAILY@0630 09/10/24 09/10/24 release polyethylene glycol 3350 17 17 g PO DAILY 09/10/24 09/10/24 gram/dose oral powder (Miralax) sucralfate 1 gram tablet 1 g PO QID 09/10/24 09/10/24 atorvastatin 80 mg tablet 80 mg PO DAILY 11/19/24 11/19/24 escitalopram oxalate 10 mg tablet 10 mg PO DAILY 11/19/24 11/19/24 escitalopram oxalate 5 mg tablet 5 mg PO DAILY 11/19/24 11/19/24 metoclopramide HCl 5 mg tablet 5 mg PO QIDACHS 11/19/24 11/19/24 mirtazapine 15 mg tablet 15 mg PO BEDTIME 11/19/24 11/19/24 polyethylene glycol 3350 17 17 g PO DAILY 11/19/24 11/19/24 gram/dose oral powder sucralfate 1 gram tablet 1 g PO BID 11/19/24 11/19/24 timolol 0.5 %-dorzolamide 2 drp ophthalmic (eye) 11/19/24 11/19/24 %-latanprost 0.005 % (PF) eye drops Previous Rx's ?Medication ?Instructions ?Recorded carbidopa 25 mg-levodopa 100 mg 1 tab PO TID 30 days #90 tabs 11/27/24 tablet galcanezumab-gnlm 120 mg/mL 240 mg (2 mL) subcut ONCE 30 days 11/27/24 subcutaneous pen injector #2 mL (Emgality Pen) magnesium oxide 400 mg (241.3 mg 400 mg PO BEDTIME 30 days #30 tabs 11/27/24 magnesium) tablet riboflavin (vitamin B2) 400 mg 400 mg PO DAILY 30 days #30 tabs 11/27/24 tablet rimegepant 75 mg disintegrating 75 mg PO ONCE PRN migraine 11/27/24 tablet (Nurtec ODT) headache 30 days #16 tabs promethazine 25 mg tablet 25 mg PO TID PRN nausea and 03/01/25 vomiting #10 tabs Allergies Allergy/AdvReac Type Severity Reaction Status Date / Time alendronate sodium Allergy Severe Rash Verified 03/01/25 04:39 latex Allergy Severe Hives Verified 03/01/25 04:39 amitriptyline Allergy Hives Verified 03/01/25 04:39 meperidine [From Demerol] Allergy Unknown Verified 03/01/25 04:39 peanut Allergy Hives Verified 03/01/25 04:39 [facility] Past Medical History Medical History History of breast cancer Osteoporosis HTN (hypertension) Depression History of hepatitis C Cirrhosis of liver CTS (carpal tunnel syndrome) Paroxysmal atrial flutter Surgical History H/O: hysterectomy Hx of appendectomy Hx of cholecystectomy Family History Family History Mother Cancer HTN (hypertension) Social History Social History Alcohol intake: never Patient Tobacco Use Status: Never used Tobacco Substance Use Type: Marijuana Advance Directives Date on File: 09/10/24 service: No Physical Exam ED Vital Signs: Vital Signs - 24 hr 03/01/25 04:34 03/01/25 04:35 Temperature 98.9 F 98.9 F Pulse Rate 63 63 Respiratory Rate 16 16 Blood Pressure 150/72 H 150/72 H Pulse Oximetry 97 97 Oxygen Delivery Method Room Air Room Air BMI result Body Mass Index 29.2 Const Other: EXAM: Gen: Alert, awake, well appearing, well hydrated. Head: Atraumatic Eyes: Anicteric, Normal conjunctiva. ENT: Moist mucosa, no pallor. ? Neck: Supple. Respiratory: Breathing comfortably, No distress.Clear to auscultation bilaterally, symmetric chest expansion, No wheeze, rales, ronchi. Cardiovascular: Regular rate and rhythm. No murmurs or rub. Well perfused periphery, warm extremities. No edema. ? Abdominal: Soft, no objective distension. No palpable masses or obvious organomegaly. No focal tenderness, no guarding, no rebound tenderness or other peritoneal findings. : No flank tenderness. Neuro: Alert. Gross movement of all extremities intact. ? Vital signs: See flowsheet Medical Decision Making Medical Decision Making MDM Narrative: 74-year-old female with? Gastroparesis, chronic nausea abdominal pain with a recurrence somewhat more severe. No fever. She has not jaundice she is moderately tender throughout the abdomen. She is on several psychotropic agents that prolonged QT so I will check that before we give her any antiemetics Lab Data 03/01/25 04:56 03/01/25 04:56 Labs: Lab Results 03/01/25 03/01/25 Range/Units 04:56 09:14 WBC 5.9 (4.8-10.8) X10*3/uL RBC 5.12 (4.20-5.50) X10*6/uL Hgb 15.2 (12.0-16.0) g/dl Hct 42.8 (37.0-47.0) % MCV 83.6 (80.0-98.0) fL MCH 29.7 (27.0-33.0) pg MCHC 35.5 H (31.0-35.0) g/dl RDW 12.7 (11.0-16.0) % Plt Count 142 L (160-400) X10*3/uL MPV 10.7 (9.4-12.3) fL Immature Gran % (Auto) 0.3 (0.0-0.4) % Neut % (Auto) 70.7 (45-73) % Lymph % (Auto) 19.9 L (20-40) % [place] % (Auto) 6.6 (2-11) % Eos % (Auto) 1.7 (0-4) % Baso % (Auto) 0.8 (0-2) % Lymph # (Auto) 1.2 (1.2-4.9) X10*3/uL [place] # (Auto) 0.4 (0.1-1.2) X10*3/uL Eos # (Auto) 0.1 (0.0-0.4) X10*3/uL Baso # (Auto) 0.1 (0.0-0.2) X10*3/uL Abs Immat Gran (auto) 0.02 (0.00-0.03) X10*3/uL Absolute Neuts (auto) 4.2 (2.0-8.3) x10*3/uL Absolute Nucleated RBC 0.000 (0.0-0.012) X10*3/uL Nucleated RBC % (auto) 0.0 (0.0-0.2) /100WBC Sodium 142 (135-145) mmol/L Potassium 3.4 (3.3-5.1) mmol/L Chloride 109 H (96-108) mmol/L Carbon Dioxide 21 L (22-29) mmol/L Anion Gap 15 (12-20) BUN 16 (9-16) mg/dL Creatinine 0.96 (0.5-1.4) mg/dL Estim Creat Clear Calc 47.1 Estimated GFR 57 Random Glucose 124 H (60-115) mg/dL Calcium 9.3 (8.4-10.2) mg/dL Total Bilirubin 0.8 (0.0-1.0) mg/dL AST 54 H (5-31) U/L ALT 59 H (0-31) U/L Alkaline Phosphatase 85 (39-117) U/L Total Protein 6.8 (6.5-8.0) g/dL Albumin 4.3 (3.5-5.0) g/dL Lipase 33 (8-78) U/L Urine Color Yellow Urine Appearance Clear Urine pH >= 9.0 (5.0-9.0) Ur Specific [place] >= 1.030 H (1.005-1.025) Urine Protein Negative (Neg-Trace) mg/dL Urine Glucose (UA) Negative (Negative) mg/dL Urine Ketones Negative (Negative) mg/dL Urine Blood Negative (Negative) Urine Nitrite Negative (Negative) Ur Leukocyte Esterase Negative (Negative) Urine RBC 0-2 (0-2) /HPF Urine WBC 0-5 (0-5) /HPF Ur Squamous Epith Cells 0-2 (0-2) /HPF Urine Bacteria None Seen (None Seen) Hyaline Casts 0-2 (0-2) /LPF Influenza Type A (PCR) NEGATIVE (Negative) Influenza Type B (PCR) NEGATIVE (Negative) RSV RNA Qual (PCR) NEGATIVE (Negative) SARS-CoV-2 RNA (RT-PCR) NEGATIVE (Negative) Medications Administered Discontinued Medications Generic Name Dose Route Start Last Admin Trade Name Cooperq PRN Reason Stop Dose Admin Clonazepam 0.5 mg 03/01/25 09:41 03/01/25 09:54 Clonazepam 0.5 Mg Tablet PO 03/01/25 09:42 0.5 mg ONCE ONE Administration Diazepam 2.5 mg 03/01/25 07:23 03/01/25 07:54 Diazepam 10 Mg/2 Ml Cartridge IVPUSH 03/01/25 07:24 2.5 mg STAT STA Administration Droperidol 1.25 mg 03/01/25 07:23 03/01/25 07:54 Droperidol 5 Mg/2 Ml Vial IVPUSH 03/01/25 07:24 1.25 mg ONCE ONE Administration Lactated Ringer's 1,000 mls @ 999 mls/hr 03/01/25 07:30 03/01/25 09:19 Lr IV 03/01/25 08:30 Infused .Q1H1M MARCUS Infusion Iohexol 85 ml 03/01/25 08:27 03/01/25 08:33 Iohexol 350 Mg/Ml 100 Ml Infus..Btl IV 03/01/25 08:28 85 ml ONCE ONE Administration Discharge Plan Discharge Clinical Impression: Functional nausea Patient Disposition: Home, Self-Care Instructions: Acute Nausea and Vomiting (DC) Additional Instructions: _ DISCHARGE DIAGNOSES: Nausea vomiting unclear cause. CT and lab work reassuring improved nausea HISTORY OF PRESENTATION: Nausea vomiting chronic abdominal pain EMERGENCY DEPARTMENT COURSE,TESTS, TREATMENTS: While in the ED today you had lab work and a CT of your abdomen you were given droperidol Valium intravenously and IV fluids you improved and had improved appetite DISCHARGE MEDICATIONS: [We have made no changes to your regular medication regimen] we have added Phenergan oral for nausea FOLLOW-UP: Call your primary or general physician soon as possible to discuss your symptoms, your ED visit and to discuss follow up plans PCP follow up INSTRUCTIONS & RETURN PRECAUTIONS: If any symptoms change first call your primary physician, if it is after-hours your primary doctors office should have a provider exhibitions curator you can speak with. If the symptoms are severe or very concerning to you then call 911 or return to the ED. [07] Yoshi Herrera MD Emergency Physician [facility] Prescriptions: New promethazine 25 mg tablet 25 mg PO TID PRN (Reason: nausea and vomiting) Qty: 10 0RF No Action Emgality Pen 120 mg/mL pen injector 240 mg subcut ONCE 30 Days Qty: 2 0RF Rx Instructions: Loading dose: 120 mg subcu injection x2 in alternate sites (total 240 mg). To be followed by maintenance dose of 120 mg subcu q.month. carbidopa-levodopa 25-100 mg tablet 1 tab PO TID 30 Days Qty: 90 6RF Rx Instructions: take w/ a cracker 30 minutes before breakfast and dinner, riboflavin (vitamin B2) 400 mg tablet 400 mg PO DAILY 30 Days Qty: 30 6RF Rx Instructions: in am magnesium oxide 400 mg (241.3 mg magnesium) tablet 400 mg PO BEDTIME 30 Days Qty: 30 6RF Rx Instructions: may hold for loose stools Nurtec ODT 75 mg tablet,disintegrating 75 mg PO ONCE MDD 1 tab PRN (Reason: migraine headache) 30 Days Qty: 16 6RF latanoprost 0.005 % drops 1 drp ophthalmic (eye) BEDTIME Rx Instructions: Both eyes atorvastatin 80 mg tablet 80 mg PO DAILY acetaminophen 325 mg tablet 650 mg PO Q4H PRN (Reason: Fever Or Pain) benztropine 0.5 mg tablet 0.5 mg PO DAILY sucralfate 1 gram tablet 1 g PO QID ondansetron HCl 4 mg tablet 4 mg PO Q6H PRN (Reason: Nausea And Vomiting) clonazepam 0.5 mg tablet 0.5 mg PO BID olanzapine 5 mg tablet 5 mg PO BEDTIME melatonin 3 mg tablet 9 mg PO BEDTIME amlodipine 5 mg tablet 5 mg PO DAILY pantoprazole 20 mg tablet,delayed release (DR/EC) 20 mg PO DAILY@0630 metoclopramide HCl 5 mg tablet 5 mg PO Q6H PRN (Reason: GI upset) mirtazapine 15 mg tablet 15 mg PO BEDTIME metoprolol succinate 25 mg tablet extended release 24 hr 25 mg PO DAILY polyethylene glycol 3350 [Miralax] 17 gram/dose Powder 17 g PO DAILY Rx Instructions: Mix 17 gm in 8 oz of water carbidopa-levodopa 25-100 mg tablet 1 tab PO BID escitalopram oxalate 10 mg tablet 10 mg PO DAILY Rx Instructions: Take with 5 mg for a total dose =15 mg escitalopram oxalate 5 mg tablet 5 mg PO DAILY Rx Instructions: Take with 10 mg for a total dose =15mg Eliquis 5 mg tablet 5 mg PO BID metoprolol succinate 25 mg tablet extended release 24 hr 25 mg PO DAILY olanzapine 5 mg tablet 5 mg PO BEDTIME pantoprazole 20 mg tablet,delayed release (DR/EC) 20 mg PO DAILY trazodone 150 mg tablet 150 mg PO BEDTIME amlodipine 5 mg tablet 5 mg PO DAILY benztropine 0.5 mg tablet 0.5 mg PO DAILY melatonin 3 mg tablet 0 mg PO docusate sodium 100 mg capsule 100 mg PO DAILY hydroxyzine pamoate 25 mg capsule 25 mg PO BID clonazepam 0.5 mg tablet 0.5 mg PO DAILY PRN ondansetron HCl 4 mg tablet 0 mg PO gabapentin 400 mg capsule 400 mg PO TID methylphenidate HCl 54 mg tablet extended release 24hr 54 mg PO DAILY famotidine 40 mg tablet 0 mg PO promethazine 12.5 mg tablet 25 mg PO BID Eliquis 5 mg tablet 5 mg PO BID escitalopram oxalate 5 mg tablet 5 mg PO DAILY escitalopram oxalate 10 mg tablet 10 mg PO DAILY polyethylene glycol 3350 17 gram/dose powder 17 g PO DAILY sucralfate 1 gram tablet 1 g PO BID atorvastatin 80 mg tablet 80 mg PO DAILY [id number](PF) 0.5-2-0.005 % drops ophthalmic (eye) mirtazapine 15 mg tablet 15 mg PO BEDTIME metoclopramide HCl 5 mg tablet 5 mg PO QIDACHS Interventions: ED Discharge Assessment Last Done: 03/01/25 11:28 Discharge Date/Time: 03/01/25 11:37 Print Language: Dominican
--- NOTE | 2025-03-01 07:23 | ECG_ITS ---
Test Reason : QT Blood Pressure : */* mmHG Vent. Rate : 57 BPM Atrial Rate : 57 BPM P-R Int : 126 ms QRS Dur : 70 ms QT Int : 464 ms P-R-T Axes : 72 48 17 degrees QTcB Int : 451 ms Sinus bradycardia Nonspecific ST and T wave abnormality Abnormal ECG When compared with ECG of 15-Jan-2025 08:02, No significant change was found Referred By: Yoshi Herrera Electronically Signed By: Tiburcio Clemons
[2025-03-01] MEDS: droPERidol 5 MG/2 ML VIAL 1.25 MG IVPUSH (07:54)
[2025-03-01] MEDS: diazePAM 10 MG/2 ML CARTRIDGE 2.5 MG IVPUSH (07:54)
[2025-03-01] MEDS: Lactated Ringers 1,000 ML 999 ML IV (07:54)
[2025-03-01 07:57] VITALS: BP 124/46; PULSE 68; RESP 18; TEMP 37.2; O2SAT 96
[2025-03-01] MEDS: iohexoL 350 MG/ML 100 ML INFUS..BTL 85 ML IV (08:33)
[2025-03-01 09:38] LABS: Appearance Urine Clear; Color Urine Yellow; Glucose Urine UA Negative (Negative); Leukocyte Esterase Urine Negative (Negative); Nitrite Urine Negative (Negative); PH >= 9.0 (5.0-9.0); Specific Gravity - Urine >= 1.030 (1.005-1.025); Urine Blood Negative (Negative); Urine Ketones Negative (Negative); Urine Protein Negative (Neg-Trace)
[2025-03-01 09:51] LABS: Bacteria Urine None Seen (None Seen); Hyaline Casts Urine 0-2 /LPF (0-2); RBC Urine 0-2 /HPF (0-2); Squamous Epithelial Cell Urine 0-2 /HPF (0-2); WBC Urine 0-5 /HPF (0-5)
[2025-03-01] MEDS: clonazePAM 0.5 MG TABLET PO (09:54)
[2025-03-01 09:55] VITALS: BP 171/59; PULSE 62; RESP 18; TEMP 37.1; O2SAT 94
[2025-03-01 11:02] VITALS: BP 137/69; PULSE 71; RESP 20; O2SAT 96
[2025-03-01 11:28] VITALS: BP 137/69; PULSE 71; RESP 20; TEMP 37.1; O2SAT 96
== END 2025-03-01 11:37 | disposition home or self-care (01) ==
PROVIDERS: Emergency Provider Emergency Medicine; PCP Family Medicine
DX: R11.2 Nausea with vomiting, unspecified (principal); R10.2 Pelvic and perineal pain; R00.1 Bradycardia, unspecified; Z03.818 Encounter for observation for suspected exposure to other biological agents ruled out; Z79.899 Other long term (current) drug therapy
CPT/HCPCS: 0241U; 74177; 80053; 81001; 83690; 85025; 93005; 96361; 96374; 96375; 99284; 99285; J1790; J3360; J7120; Q9967

== ENCOUNTER → 2025-03-01 07:23 | Outpatient (BNV) | payer OTHER, SELFPAY | PROVIDERS: Emergency Provider Emergency Medicine; PCP Family Medicine; Visit Provider Internal Medicine Cardiovascular Disease | DX: R00.1 Bradycardia, unspecified (principal) | CPT/HCPCS: 93010 ==

== ENCOUNTER → 2025-03-01 07:23 | Outpatient (BNV) | payer OTHER, SELFPAY | PROVIDERS: Emergency Provider Emergency Medicine; PCP Family Medicine; Visit Provider Specialist | DX: R10.31 Right lower quadrant pain (principal) | CPT/HCPCS: 74177 ==

== ENCOUNTER 2025-03-06 07:58 | Emergency (ER) | payer OTHER, SELFPAY ==
[2025-03-06 08:06] VITALS: BP 151/84; BP 165/66; PULSE 71; PULSE 78; RESP 16; TEMP 36.9; O2SAT 96; BMI 27.9
[2025-03-06 08:13] VITALS: BP 165/66; PULSE 72; RESP 16; O2SAT 97
--- NOTE | 2025-03-06 08:13 | ED_ITS ---
HPI - General Adult General Chief complaint: Abdominal Pain Stated complaint: ABD PAIN,N/V Time Seen by Provider: 03/06/25 08:13 Source: patient and EMS Mode of arrival: EMS Limitations: no limitations History of Present Illness ED Provider: Anna Rm PA-C HPI narrative: Patient is a 74 year old assigned female at with a history of an essential tremor, migraines, and gastroparesis presenting to the emergency department today with abdominal pain and nausea. Patient states that she has been dealing with this for years and it is not getting better. Patient states that Zofran helps sometimes. Patient states that it is the same pain she has had before. Patient states that she was here 5 days ago and had the same symptoms. Patient denies any dizziness, lightheadedness, vomiting, fever, chills, blurry vision, double vision, loss of vision, chest pain, difficulty breathing, shortness of breath, back pain, night sweats, pain with urination, increased urinary frequency, increased urinary urgency, blood in her urine or stool, syncope or a near syncopal episode, recent trauma or falls, bowel incontinence, bladder incontinence, or any other complaints at this time. Onset (ago): year(s) Location: abdomen Relieving factors: none Exacerbating factors: none Associated symptoms: nausea/vomiting Related Data Home Medications ?Medication ?Instructions ?Recorded ?Confirmed amlodipine 5 mg tablet 5 mg PO DAILY 02/22/23 11/19/24 benztropine 0.5 mg tablet 0.5 mg PO DAILY 02/22/23 11/19/24 clonazepam 0.5 mg tablet 0.5 mg PO DAILY PRN 02/22/23 11/19/24 docusate sodium 100 mg capsule 100 mg PO DAILY 02/22/23 11/13/23 famotidine 40 mg tablet 0 mg PO 02/22/23 11/13/23 gabapentin 400 mg capsule 400 mg PO TID 02/22/23 11/13/23 hydroxyzine pamoate 25 mg capsule 25 mg PO BID 02/22/23 11/13/23 melatonin 3 mg tablet 0 mg PO 02/22/23 11/19/24 methylphenidate HCl 54 mg 54 mg PO DAILY 02/22/23 11/13/23 tablet,extended release 24 hr metoprolol succinate 25 mg 25 mg PO DAILY 02/22/23 11/19/24 tablet,extended release 24 hr olanzapine 5 mg tablet 5 mg PO BEDTIME 02/22/23 11/19/24 ondansetron HCl 4 mg tablet 0 mg PO 02/22/23 11/19/24 pantoprazole 20 mg tablet,delayed 20 mg PO DAILY 02/22/23 11/19/24 release promethazine 12.5 mg tablet 25 mg PO BID 02/22/23 11/13/23 trazodone 150 mg tablet 150 mg PO BEDTIME 02/22/23 11/13/23 apixaban 5 mg tablet (Eliquis) 5 mg PO BID 11/13/23 11/19/24 acetaminophen 325 mg tablet 650 mg PO Q4H PRN Fever Or Pain 09/10/24 09/10/24 amlodipine 5 mg tablet 5 mg PO DAILY 09/10/24 09/10/24 apixaban 5 mg tablet (Eliquis) 5 mg PO BID 09/10/24 09/10/24 atorvastatin 80 mg tablet 80 mg PO DAILY 09/10/24 09/10/24 benztropine 0.5 mg tablet 0.5 mg PO DAILY 09/10/24 09/10/24 carbidopa 25 mg-levodopa 100 mg 1 tab PO BID 09/10/24 09/10/24 tablet clonazepam 0.5 mg tablet 0.5 mg PO BID 09/10/24 09/10/24 escitalopram oxalate 10 mg tablet 10 mg PO DAILY 09/10/24 09/10/24 escitalopram oxalate 5 mg tablet 5 mg PO DAILY 09/10/24 09/10/24 latanoprost 0.005 % eye drops 1 drp ophthalmic (eye) BEDTIME 09/10/24 09/10/24 melatonin 3 mg tablet 9 mg PO BEDTIME 09/10/24 09/10/24 metoclopramide HCl 5 mg tablet 5 mg PO Q6H PRN GI upset 09/10/24 09/10/24 metoprolol succinate 25 mg 25 mg PO DAILY 09/10/24 09/10/24 tablet,extended release 24 hr mirtazapine 15 mg tablet 15 mg PO BEDTIME 09/10/24 09/10/24 olanzapine 5 mg tablet 5 mg PO BEDTIME 09/10/24 09/10/24 ondansetron HCl 4 mg tablet 4 mg PO Q6H PRN Nausea And Vomiting 09/10/24 09/10/24 pantoprazole 20 mg tablet,delayed 20 mg PO DAILY@0630 09/10/24 09/10/24 release polyethylene glycol 3350 17 17 g PO DAILY 09/10/24 09/10/24 gram/dose oral powder (Miralax) sucralfate 1 gram tablet 1 g PO QID 09/10/24 09/10/24 atorvastatin 80 mg tablet 80 mg PO DAILY 11/19/24 11/19/24 escitalopram oxalate 10 mg tablet 10 mg PO DAILY 11/19/24 11/19/24 escitalopram oxalate 5 mg tablet 5 mg PO DAILY 11/19/24 11/19/24 metoclopramide HCl 5 mg tablet 5 mg PO QIDACHS 11/19/24 11/19/24 mirtazapine 15 mg tablet 15 mg PO BEDTIME 11/19/24 11/19/24 polyethylene glycol 3350 17 17 g PO DAILY 11/19/24 11/19/24 gram/dose oral powder sucralfate 1 gram tablet 1 g PO BID 11/19/24 11/19/24 timolol 0.5 %-dorzolamide 2 drp ophthalmic (eye) 11/19/24 11/19/24 %-latanprost 0.005 % (PF) eye drops Previous Rx's ?Medication ?Instructions ?Recorded carbidopa 25 mg-levodopa 100 mg 1 tab PO TID 30 days #90 tabs 11/27/24 tablet galcanezumab-gnlm 120 mg/mL 240 mg (2 mL) subcut ONCE 30 days 11/27/24 subcutaneous pen injector #2 mL (Emgality Pen) magnesium oxide 400 mg (241.3 mg 400 mg PO BEDTIME 30 days #30 tabs 11/27/24 magnesium) tablet riboflavin (vitamin B2) 400 mg 400 mg PO DAILY 30 days #30 tabs 11/27/24 tablet rimegepant 75 mg disintegrating 75 mg PO ONCE PRN migraine 11/27/24 tablet (Nurtec ODT) headache 30 days #16 tabs promethazine 25 mg tablet 25 mg PO TID PRN nausea and 03/01/25 vomiting #10 tabs Allergies Allergy/AdvReac Type Severity Reaction Status Date / Time alendronate sodium Allergy Severe Rash Verified 03/06/25 08:10 latex Allergy Severe Hives Verified 03/06/25 08:10 amitriptyline Allergy Hives Verified 03/06/25 08:10 meperidine [From Demerol] Allergy Unknown Verified 03/06/25 08:10 peanut Allergy Hives Verified 03/06/25 08:10 Review of Systems 2 Constitutional: Constitutional: Reports no additional constitutional complaints, Denies chills, Denies fever(s) and Denies night sweats Eyes: Eyes: Reports no additional eye complaints, Denies blurry vision, Denies change in vision, Denies diplopia, Denies eye discharge, Denies loss of vision and Denies eye pain ENT: Denies dizziness Cardiovascular: Cardiovascular: Reports no additional cardiovascular complaints, Denies chest pain, Denies lightheadedness, Denies Loss of Consciousness and Denies dyspnea Respiratory: Respiratory: Reports no additional respiratory complaints and Denies dyspnea Gastrointestinal: Gastrointestinal: Reports no additional gastrointestinal complaints, Reports abdominal pain, Denies melena, Denies hematochezia, Denies change in bowel habits, Denies change in stool character, Reports nausea and Denies vomiting Genitourinary: Genitourinary: Denies hematuria, Denies urinary frequency, Denies dysuria, Denies urinary incontinence, Denies urinary hesitancy and Denies urinary urgency Musculoskeletal: Musculoskeletal: Reports no additional musculoskeletal complaints, Denies numbness and Denies tingling Neurologic: Denies dizziness, Denies loss of vision, Denies numbness and Denies tingling Psychiatric: Psychiatric: Reports no additional psychiatric complaints Endocrine: Endocrine: Reports no additional endocrine complaints Hematologic/Lymphatic: Hematologic/Lymphatic: Reports no additional hematologic/lymphatic complaints Allergic/Immunologic: Allergic/Immunologic: Reports no additional allergic/immunologic complaints PENDING SALE TO [facility] Past Medical History Attestation statement: The following information was validated with the patient. Source: old records reviewed and nursing notes reviewed Medical History History of breast cancer Osteoporosis HTN (hypertension) Depression History of hepatitis C Cirrhosis of liver CTS (carpal tunnel syndrome) Paroxysmal atrial flutter Surgical History H/O: hysterectomy Hx of appendectomy Hx of cholecystectomy Family History Family History Mother Cancer HTN (hypertension) Social History Social History Alcohol intake: never Patient Tobacco Use Status: Never used Tobacco Substance Use Type: Marijuana Advance Directives: Yes Advance Directives on File: Yes Advance Directives Date on File: 09/10/24 service: No Physical Exam ED Vital Signs: Vital Signs - 24 hr 03/06/25 08:06 03/06/25 08:13 03/06/25 10:00 Temperature 98.5 F Pulse Rate 71 72 65 Respiratory Rate 16 16 16 Blood Pressure 165/66 H 165/66 H 141/72 H Pulse Oximetry 96 97 96 Oxygen Delivery Method Room Air Room Air Room Air BMI result Body Mass Index 27.9 Const General: cooperative, no acute distress, alert and awake Nutritional Appearance: well nourished Orientation/consciousness: patient oriented x3 HENMT Head: Yes normal to inspection and Yes atraumatic Ears: hearing grossly normal bilaterally and external ears normal General nose exam: Normal external nose present, no nasal discharge noted and no epistaxis Face and sinus: Yes normal facial exam, No abrasion and No laceration Mouth: Normal oral and palatal mucosa present, no drooling and no muffled voice Eyes General: appearance normal, both eyes and all related structures Periorbital: periorbital findings normal Eyelids: Yes eyelids normal Conjunctivae: conjunctivae normal Pupils: Equal, round and reactive pupils present EOM: EOMs intact bilaterally Neck Neck: Yes normal visual inspection, Yes full ROM and Yes no lymphadenopathy Resp Effort & Inspection: normal respiratory effort and able to speak in complete sentences GI Palpation (GI): Soft to palpation, not firm, nontender and no guarding Neuro General: patient oriented x3, moves all extremities and CN's II-XI intact bilaterally Cranial nerves: Yes Equal, round and reactive pupils present Cognition (Neuro): normal cognition Extrem General: Yes normal to inspection, Yes full ROM and Yes capillary refill normal Psych Appearance: grossly normal Mental Status: mental status grossly normal Affect: normal affect Attitude: cooperative Thought process: Normal thought process present Thought content: Normal thought content present Insight: Good insight present (Psych) Medications Administered Discontinued Medications Generic Name Dose Route Start Last Admin Trade Name Freq PRN Reason Stop Dose Admin Dicyclomine HCl 10 mg 03/06/25 08:33 03/06/25 08:40 Dicyclomine Hcl 10 Mg Capsule PO 03/06/25 08:34 10 mg ONCE ONE Administration Droperidol 1.25 mg 03/06/25 09:41 03/06/25 09:48 Droperidol 5 Mg/2 Ml Vial IM 03/06/25 09:42 1.25 mg ONCE ONE Administration Ondansetron HCl 4 mg 03/06/25 08:41 03/06/25 08:58 Ondansetron Odt 4 Mg Tab.Glorydis TRANSLINGU 03/06/25 08:42 4 mg ONCE ONE Administration Medical Decision Making Medical Decision Making [facility] Narrative: Patient is a 74 year old assigned female at with a history of an essential tremor, migraines, and gastroparesis presenting to the emergency department today with abdominal pain and nausea. Patient's physical exam was unremarkable. Patient's blood work was unremarkable. Patient's urine showed no acute process. Patient's EKG was unremarkable. I explained my physical exam findings as well as all test results to the patient. I answered all questions asked by the patient. Patient's clinical presentation is most consistent with acute on chronic abdominal pain. Patient received Zofran, Bentyl, and Morphine which, upon re- evaluation, she stated it helped her symptoms significantly. I stressed the importance of the patient taking her medication as directed (either prescribed or as the over the counter packaging recommends). I stressed the importance of the patient following up with her primary care provider and her GI specialist. I stressed the importance of the patient returning to the emergency department immediately if her symptoms were to worsen or if she were to develop any dizziness, shortness of breath, difficulty breathing, chest pain, blurry vision, loss of vision, nausea, vomiting, abdominal pain, fever, chills, back pain, or any other complaints. Patient verbalized agreement and understanding with this treatment plan and discharge. Differential Diagnosis Differential Diagnoses: The differential diagnosis associated with the presentation includes Chronic abdominal pain Nausea Admission/Observation Consideration of admission/observation: Escalation of care including admission/observation considered Patient would have been admitted to the hospital had her work up had any findings where hospital admission was appropriate and her clinical presentation warranted hospital admission. Lab Data [facility] Lab Attestation statement: I reviewed the patient's lab results. My interpretation of these results are in the [facility] Rationale portion of this note. 03/06/25 08:37 03/06/25 08:37 Labs: Lab Results 03/06/25 Range/Units 08:37 WBC 3.9 L (4.8-10.8) X10*3/uL RBC 4.86 (4.20-5.50) X10*6/uL Hgb 14.6 (12.0-16.0) g/dl Hct 41.3 (37.0-47.0) % MCV 85.0 (80.0-98.0) fL MCH 30.0 (27.0-33.0) pg MCHC 35.4 H (31.0-35.0) g/dl RDW 13.0 (11.0-16.0) % Plt Count 114 L (160-400) X10*3/uL MPV 11.1 (9.4-12.3) fL Immature Gran % (Auto) 0.3 (0.0-0.4) % Neut % (Auto) 72.1 (45-73) % Lymph % (Auto) 19.3 L (20-40) % [place] % (Auto) 5.8 (2-11) % Eos % (Auto) 1.5 (0-4) % Baso % (Auto) 1.0 (0-2) % Lymph # (Auto) 0.8 L (1.2-4.9) X10*3/uL [place] # (Auto) 0.2 (0.1-1.2) X10*3/uL Eos # (Auto) 0.1 (0.0-0.4) X10*3/uL Baso # (Auto) 0.0 (0.0-0.2) X10*3/uL Abs Immat Gran (auto) 0.01 (0.00-0.03) X10*3/uL Absolute Neuts (auto) 2.8 (2.0-8.3) x10*3/uL Absolute Nucleated RBC 0.000 (0.0-0.012) X10*3/uL Nucleated RBC % (auto) 0.0 (0.0-0.2) /100WBC Sodium 145 (135-145) mmol/L Potassium 3.5 (3.3-5.1) mmol/L Chloride 115 H (96-108) mmol/L Carbon Dioxide 20 L (22-29) mmol/L Anion Gap 14 (12-20) BUN 12 (9-16) mg/dL Creatinine 0.80 (0.5-1.4) mg/dL Estim Creat Clear Calc 55.3 Estimated GFR > 60 Random Glucose 141 H (60-115) mg/dL Calcium 9.1 (8.4-10.2) mg/dL Magnesium 2.1 (1.6-2.6) mg/dL Total Bilirubin 0.5 (0.0-1.0) mg/dL AST 39 H (5-31) U/L ALT 58 H (0-31) U/L Alkaline Phosphatase 82 (39-117) U/L Troponin I High Sens 8.1 (<3.5-17.0) ng/L Total Protein 6.4 L (6.5-8.0) g/dL Albumin 4.2 (3.5-5.0) g/dL Urine Color Yellow Urine Appearance Clear Urine pH 7.0 (5.0-9.0) Ur Specific [place] 1.010 (1.005-1.025) Urine Protein Negative (Neg-Trace) mg/dL Urine Glucose (UA) Negative (Negative) mg/dL Urine Ketones Negative (Negative) mg/dL Urine Blood Negative (Negative) Urine Nitrite Negative (Negative) Ur Leukocyte Esterase Negative (Negative) Influenza Type A (PCR) NEGATIVE (Negative) Influenza Type B (PCR) NEGATIVE (Negative) RSV RNA Qual (PCR) NEGATIVE (Negative) SARS-CoV-2 RNA (RT-PCR) NEGATIVE (Negative) Independent Historian Clinical information obtained from an independent historian. History obtained from or confirmed by: EMS (EMS provided additional history and confirmed the history provided by the patient.) Tests considered The following testing was considered but not selected: I considered obtaining a CT of the abdomen/pelvis however, the patient had one down on 03/01/2025 that was unremarkable, her pain is the same as it was then, and her work up + clinical presentation today was unremarkable. Discharge Plan Discharge Clinical Impression: Chronic abdominal pain Patient Disposition: Home, Self-Care Instructions: Abdominal Pain (ED) Additional Instructions: Your work up today was again reassuring there is no emergent process to explain your symptoms. Continue takin the Zofran previously prescribed - prescribed. Follow up with your primary care provider. Return to the emergency department immediately if your symptoms worsen or if you develop any numbness, tingling, dizziness, shortness of breath, difficulty breathing, chest pain, blurry vision, loss of vision, nausea, vomiting, abdominal pain, fever, chills, back pain, or any other complaints. Please see the information below about our Patient Portal. If you are not yet enrolled in the [facility] Patient Portal, you will receive an enrollment email invitation following your visit to any [facility] care setting. You may also self-enroll in the Patient Portal by visiting our website: [email or web address] The following information is required to access the Patient Portal: - Your [facility] Medical Record Number - Your personal home email address (must match what is in your electronic medical record, Registration staff can assist with this) - Name - Date of Capabilities of the Patient Portal: - Message some providers - View upcoming appointments - Access your health summary, medical history, and visit history - View current conditions and allergies - View procedure and lab results - View your medications, including guidelines, side effects, and precautions - Complete pre-appointment questionnaires requested by your provider - Ready summary reports of your office visits and procedures To access the Patient Portal Mobile Larry, follow these directions: - Search End[employer]ense in the Larry Store or [employer] Store - Download the Larry - Search for [facility] - Enter your login/password Prescriptions: No Action Emgality Pen 120 mg/mL pen injector 240 mg subcut ONCE 30 Days Qty: 2 0RF Rx Instructions: Loading dose: 120 mg subcu injection x2 in alternate sites (total 240 mg). To be followed by maintenance dose of 120 mg subcu q.month. carbidopa-levodopa 25-100 mg tablet 1 tab PO TID 30 Days Qty: 90 6RF Rx Instructions: take w/ a cracker 30 minutes before breakfast and dinner, riboflavin (vitamin B2) 400 mg tablet 400 mg PO DAILY 30 Days Qty: 30 6RF Rx Instructions: in am magnesium oxide 400 mg (241.3 mg magnesium) tablet 400 mg PO BEDTIME 30 Days Qty: 30 6RF Rx Instructions: may hold for loose stools Nurtec ODT 75 mg tablet,disintegrating 75 mg PO ONCE MDD 1 tab PRN (Reason: migraine headache) 30 Days Qty: 16 6RF latanoprost 0.005 % drops 1 drp ophthalmic (eye) BEDTIME Rx Instructions: Both eyes atorvastatin 80 mg tablet 80 mg PO DAILY acetaminophen 325 mg tablet 650 mg PO Q4H PRN (Reason: Fever Or Pain) benztropine 0.5 mg tablet 0.5 mg PO DAILY sucralfate 1 gram tablet 1 g PO QID ondansetron HCl 4 mg tablet 4 mg PO Q6H PRN (Reason: Nausea And Vomiting) clonazepam 0.5 mg tablet 0.5 mg PO BID olanzapine 5 mg tablet 5 mg PO BEDTIME melatonin 3 mg tablet 9 mg PO BEDTIME amlodipine 5 mg tablet 5 mg PO DAILY pantoprazole 20 mg tablet,delayed release (DR/EC) 20 mg PO DAILY@0630 metoclopramide HCl 5 mg tablet 5 mg PO Q6H PRN (Reason: GI upset) mirtazapine 15 mg tablet 15 mg PO BEDTIME metoprolol succinate 25 mg tablet extended release 24 hr 25 mg PO DAILY polyethylene glycol 3350 [Miralax] 17 gram/dose Powder 17 g PO DAILY Rx Instructions: Mix 17 gm in 8 oz of water carbidopa-levodopa 25-100 mg tablet 1 tab PO BID escitalopram oxalate 10 mg tablet 10 mg PO DAILY Rx Instructions: Take with 5 mg for a total dose =15 mg escitalopram oxalate 5 mg tablet 5 mg PO DAILY Rx Instructions: Take with 10 mg for a total dose =15mg Eliquis 5 mg tablet 5 mg PO BID promethazine 25 mg tablet 25 mg PO TID PRN (Reason: nausea and vomiting) Qty: 10 0RF metoprolol succinate 25 mg tablet extended release 24 hr 25 mg PO DAILY olanzapine 5 mg tablet 5 mg PO BEDTIME pantoprazole 20 mg tablet,delayed release (DR/EC) 20 mg PO DAILY trazodone 150 mg tablet 150 mg PO BEDTIME amlodipine 5 mg tablet 5 mg PO DAILY benztropine 0.5 mg tablet 0.5 mg PO DAILY melatonin 3 mg tablet 0 mg PO docusate sodium 100 mg capsule 100 mg PO DAILY hydroxyzine pamoate 25 mg capsule 25 mg PO BID clonazepam 0.5 mg tablet 0.5 mg PO DAILY PRN ondansetron HCl 4 mg tablet 0 mg PO gabapentin 400 mg capsule 400 mg PO TID methylphenidate HCl 54 mg tablet extended release 24hr 54 mg PO DAILY famotidine 40 mg tablet 0 mg PO promethazine 12.5 mg tablet 25 mg PO BID Eliquis 5 mg tablet 5 mg PO BID escitalopram oxalate 5 mg tablet 5 mg PO DAILY escitalopram oxalate 10 mg tablet 10 mg PO DAILY polyethylene glycol 3350 17 gram/dose powder 17 g PO DAILY sucralfate 1 gram tablet 1 g PO BID atorvastatin 80 mg tablet 80 mg PO DAILY mqmijos-zpprqkyqhe-atnsmyg(PF) 0.5-2-0.005 % drops ophthalmic (eye) mirtazapine 15 mg tablet 15 mg PO BEDTIME metoclopramide HCl 5 mg tablet 5 mg PO QIDACHBeronica Referrals: Raven Garcia PA [Primary Care Provider] - Print Language: Danish
--- NOTE | 2025-03-06 08:17 | PC.NURSE ---
Addendum entered by Iza Velasco RN 03/06/25 08:19: Patient presents from a local rest home with c/o abdominal pain with assoc nausea for a year. Recently seen for same. Alert and oriented. Lungs clear bilat. Respirations even and non-labored. Abdomen soft, distended, non-tender with positive bowel sounds. c/o suprapubic pain but denies any urinary symptoms other than an overactive bladder. c/o nausea and anorexia and requesting zofran. Patient states has zofran at home. Positive pedal pulses with no edema noted. Original Note: Medical History History of breast cancer Osteoporosis HTN (hypertension) Depression History of hepatitis C Cirrhosis of liver CTS (carpal tunnel syndrome)
--- NOTE | 2025-03-06 08:18 | ECG_ITS ---
Test Reason : abd pain Blood Pressure : */* mmHG Vent. Rate : 66 BPM Atrial Rate : 66 BPM P-R Int : 134 ms QRS Dur : 84 ms QT Int : 448 ms P-R-T Axes : 33 55 44 degrees QTcB Int : 469 ms Normal sinus rhythm Nonspecific T wave abnormality Abnormal ECG When compared with ECG of 01-Mar-2025 07:34, Nonspecific T wave abnormality, improved in Inferior leads Referred By: Anna Rm Electronically Signed By: CAROL ABBASI MD
--- OUTSIDE RECORDS SUMMARY | 2025-03-06 08:18 | XMS_ITS | Clinical Summary ---
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
[2025-03-06] MEDS: Dicyclomine HCl 10 MG CAPSULE PO (08:40)
[2025-03-06 08:42] LABS: MANUAL DIFF FLAG NO
[2025-03-06 08:44] LABS: Appearance Urine Clear; Color Urine Yellow; Glucose Urine UA Negative (Negative); Leukocyte Esterase Urine Negative (Negative); Nitrite Urine Negative (Negative); Urine Blood Negative (Negative); Urine Ketones Negative (Negative); Urine Protein Negative (Neg-Trace)
[2025-03-06 08:45] LABS: Eosinophils Absolute Auto 0.1 X10*3/uL (0.0-0.4); Eosinophils Percent Auto 1.5 % (0-4); Hematocrit 41.3 % (37.0-47.0); Hemoglobin 14.6 g/dl (12.0-16.0); Imm Gran Abs Auto 0.01 X10*3/uL (0.00-0.03); Imm Gran Pct Auto 0.3 % (0.0-0.4); Lymphocytes Absolute Auto 0.8 X10*3/uL (1.2-4.9); Lymphocytes Percent Auto 19.3 % (20-40); Mean Corpuscular HGB Conc 35.4 g/dl (31.0-35.0); Mean Platelet Volume 11.1 fL (9.4-12.3); Monocytes Absolute Auto 0.2 X10*3/uL (0.1-1.2); Monocytes Percent Auto 5.8 % (2-11); Neutrophils Absolute Auto 2.8 x10*3/uL (2.0-8.3); Neutrophils Percent Auto 72.1 % (45-73); Platelet Count 114 X10*3/uL (160-400); Red Blood Count 4.86 X10*6/uL (4.20-5.50); White Blood Count 3.9 X10*3/uL (4.8-10.8)
[2025-03-06] MEDS: Ondansetron ODT 4 MG TAB.RAPDIS TRANSLINGU (08:58)
[2025-03-06 09:00] LABS: Alanine Aminotransferase 58 U/L (0-31); Albumin Level 4.2 g/dL (3.5-5.0); Alkaline Phosphatase 82 U/L (39-117); Anion Gap 14 (12-20); Aspartate Amino Transferase 39 U/L (5-31); Bilirubin Total 0.5 mg/dL (0.0-1.0); Blood Urea Nitrogen 12 mg/dL (9-16); Calcium 9.1 mg/dL (8.4-10.2); Carbon Dioxide 20 mmol/L (22-29); Chloride 115 mmol/L (96-108); Creatinine Clr Calc Pharmacy 55.3; Estimated Glomerular Filt Rate > 60; Glucose Random 141 mg/dL (60-115); Magnesium 2.1 mg/dL (1.6-2.6); Potassium 3.5 mmol/L (3.3-5.1); Sodium 145 mmol/L (135-145); Total Protein 6.4 g/dL (6.5-8.0)
[2025-03-06 09:08] LABS: Troponin-I High Sensitivity 8.1 ng/L (<3.5-17.0)
[2025-03-06 09:22] LABS: Influenza A PCR NEGATIVE (Negative); Influenza B PCR NEGATIVE (Negative); Resp Syncy Virus RNA Qual PCR NEGATIVE (Negative); SARS COV2 PCR INHOUSE NEGATIVE (Negative)
[2025-03-06] MEDS: droPERidol 5 MG/2 ML VIAL 1.25 MG IM (09:48)
[2025-03-06 10:00] VITALS: BP 141/72; PULSE 65; RESP 16; O2SAT 96
[2025-03-06 10:22] VITALS: BP 141/72; PULSE 65; RESP 16; TEMP 36.7; O2SAT 96
== END 2025-03-06 10:24 | disposition home or self-care (01) ==
PROVIDERS: Physician Assistant Medical; Emergency Provider Emergency Medicine Emergency Medical Services; PCP Physician Assistant
DX: R10.9 Unspecified abdominal pain (principal); R11.2 Nausea with vomiting, unspecified; I10 Essential (primary) hypertension; I48.92 Unspecified atrial flutter; Z79.899 Other long term (current) drug therapy
CPT/HCPCS: 0241U; 80053; 81003; 83735; 84484; 85025; 93005; 96372; 99284; 99285; J1790

== ENCOUNTER → 2025-03-06 08:18 | Outpatient (BNV) | payer OTHER, SELFPAY | PROVIDERS: Emergency Provider Emergency Medicine Emergency Medical Services; PCP Physician Assistant; Visit Provider Internal Medicine Cardiovascular Disease | DX: R94.31 Abnormal electrocardiogram [ECG] [EKG] (principal); R10.9 Unspecified abdominal pain | CPT/HCPCS: 93010 ==

== ENCOUNTER 2025-05-20 09:23 | Outpatient (AMB) | payer OTHER, SELFPAY ==
[2025-05-20 09:31] VITALS: BP 130/70; PULSE 58; O2SAT 97; BMI 29.6
--- NOTE | 2025-05-20 09:31 | MHC.OFFVIS ---
Vital Signs 05/20/25 09:31 Height 5 ft 2 in Weight 162 lb BMI 29.6 BP 130/70 Blood Pressure Location Lt brachial Position Sitting Pulse 58 Pulse Source Pulse Oximeter Pulse Oximetry (%) 97 Oxygen Delivery Method Room Air Intake Visit Reasons: 6mon follow-up Chronic Disease Manager Required: No Accompanied by: Self / Same As Patient Allergies alendronate sodium Allergy (Severe, Verified 05/20/25 09:36) Rash latex Allergy (Severe, Verified 05/20/25 09:36) Hives amitriptyline Allergy (Verified 05/20/25 09:36) Hives meperidine (From Demerol) Allergy (Verified 05/20/25 09:36) Unknown peanut Allergy (Verified 05/20/25 09:36) Hives Medication List - Last Reconciled 05/20/25 by TRI Ayers acetaminophen 650 mg PO Q4H PRN amlodipine 5 mg PO DAILY amlodipine 5 mg PO DAILY apixaban (Eliquis) 5 mg PO BID Held on 09/11/24. Instructions: Resume on 09/24/24. apixaban (Eliquis) 5 mg PO BID atorvastatin 80 mg PO DAILY atorvastatin 80 mg PO DAILY benztropine 0.5 mg PO DAILY benztropine 0.5 mg PO DAILY carbidopa-levodopa 25-100 mg 1 tab PO BID carbidopa-levodopa 25-100 mg 1 tab PO TID 30 days clonazepam 0.5 mg PO BID clonazepam 0.5 mg PO DAILY PRN docusate sodium 100 mg PO DAILY escitalopram oxalate 5 mg PO DAILY escitalopram oxalate 10 mg PO DAILY escitalopram oxalate 10 mg PO DAILY escitalopram oxalate 5 mg PO DAILY famotidine 0 mg PO gabapentin 400 mg PO TID galcanezumab-gnlm (Emgality Pen) 120 mg subcut Q30D 30 days hydroxyzine pamoate 25 mg PO BID latanoprost 0.005% 1 drp ophthalmic (eye) BEDTIME magnesium oxide 400 mg PO BEDTIME 30 days melatonin 9 mg PO BEDTIME melatonin 0 mg PO methylphenidate HCl ER 54 mg PO DAILY metoclopramide HCl 5 mg PO Q6H PRN metoclopramide HCl 5 mg PO QIDACHS metoprolol succinate ER 25 mg PO DAILY metoprolol succinate ER 25 mg PO DAILY mirtazapine 15 mg PO BEDTIME mirtazapine 15 mg PO BEDTIME olanzapine 5 mg PO BEDTIME olanzapine 5 mg PO BEDTIME ondansetron HCl 4 mg PO Q6H PRN ondansetron HCl 0 mg PO pantoprazole 20 mg PO DAILY@0630 pantoprazole 20 mg PO DAILY polyethylene glycol 3350 (Miralax) 17 grams PO DAILY polyethylene glycol 3350 17 grams PO DAILY promethazine 25 mg PO TID PRN promethazine 25 mg PO BID riboflavin (vitamin B2) 400 mg PO DAILY 30 days rimegepant (Nurtec ODT) 75 mg PO ONCE PRN 30 days MDD 1 tab sucralfate 1 g PO QID sucralfate 1 g PO BID [id number]-[id number](PF) 0.5-2-0.005 % drps ophthalmic (eye) trazodone 150 mg PO BEDTIME HPI Comments Details: 73-yr-old female presents for f/u visit of tremor and migraine. She states she is noticing that her right foot is now rolling inward while walking. She did complete PT. Pt's current tremor medication regimen: CD-LD 25-100mg 1 tab tid. Benzotropine- 0.5mg. ADL's: Ind Swallowing: Occasionally needs to take fluids to clear a bite of solid foods. Drooling: Denies Orthostatic lightheadedness: If stands too quickly Constipation:Denies GI: States the nausea has resolved since starting reglan regularly. Stiffness: Does Oral-lingual movement- stable, does not interfere w/ eating. Tremor: BUE, L > R, action and rest tremor- come and go- worse in the am and sometimes the afternoon Gait/Freezing: also may feel like she will fall to the side when she goes to take a step. Typically uses her walker. Falls: denies interval falls Hallucinations: Denies Memory: Feels her memory is poor- more so STM lapses. Sleep: Sleeping ok- varies a bit, usually able to sleep better after not sleeping well for a night. Exercise: She does the exercise class 1-2 x's per week- d/t class schedule change. Walks every day. Her migraines are better overall. However, she is having 1 severe migraine days per month, and a couple of milder migarine days per month. She still needs to lie down. She has started emgality, but not the nurtec. So, using Tylenol prn- helps some but not fully. . PFSH Medical History History of breast cancer Osteoporosis HTN (hypertension) Depression History of hepatitis C Cirrhosis of liver CTS (carpal tunnel syndrome) Paroxysmal atrial flutter Surgical History H/O: hysterectomy Hx of appendectomy Hx of cholecystectomy Family History Mother Cancer HTN (hypertension) Social History Alcohol intake: never Patient Tobacco Use Status: Never used Tobacco Substance Use Type: Marijuana Advance Directives Date on File: 09/10/24 service: No Physical Exam Vital Signs: Last Vital Signs Pulse 58 05/20/25 09:31 BP 130/70 05/20/25 09:31 Pulse Ox 97 05/20/25 09:31 Oxygen Delivery Method Room Air 05/20/25 09:31 BMI result Body Mass Index 29.6 Const General: cooperative and no acute distress Resp Effort & Inspection: normal respiratory effort and able to speak in complete sentences Neuro Other: General: Alert and oriented x3 Expression: Intact Voice: Soft Tremor: BUE L > R postural mild tremor Tone: BUE rigidity Dyskinesia: Mild oral-buccal movements. FFM: Slightly decreased on left Foot taps: Slightly decreased on left Gait: Stands easily, slight stoop, decreased left arm swing, short narrow based stops-overall gait is improved today. Pt did not bring walker today. Psych: Pleasant affect Assessment & Plan Assessment & Plan (1) Parkinsonism: Code(s): G20.C - Parkinsonism, unspecified Category: Medical Qualifiers: Parkinsonism type: unspecified Qualified Code(s): G20.C - Parkinsonism, unspecified (2) Gait difficulty: Code(s): R26.9 - Unspecified abnormalities of gait and mobility Category: Medical (3) Tardive dyskinesia: Code(s): G24.01 - Drug induced subacute dyskinesia Category: Medical (4) Migraine without aura: Code(s): G43.009 - Migraine without aura, not intractable, without status migrainosus Category: Medical Qualifiers: Status migrainosus presence: without status migrainosus Intractability: not intractable Qualified Code(s): G43.009 - Migraine without aura, not intractable, without status migrainosus Plan For TD, PDism, gait difficulty: Continue carbidopa-levodopa 25-100 mg 1 tab 3 times a day-as patient has had good clinical benefit from increasing the dose. May continue Benzotropine 0,5mg qhs for now. Patient encouraged to use 4 wheeled walker at all times. Reviewed simple strategies to break freezing gait and festinating gait-such as STEMI in place, stepping in place, tapping her hip, using her walker. We will request podiatry consult-to see if the patient would benefit from orthotics Simple swallowing strategies reviewed with patient, if symptoms worsen, we will consider referral for [employer] eval and treat. For migraine w/o aura prevention: Riboflavin 400 mg q.a.m. Magnesium 400 mg q.h.s. Continue Emgality 120mg/ml auto-injection maintenance dose: 120mg (120mg/ml autoinjector) subcutaneous injection every month. Patient has not had meaningful, greater than 30% reduction in monthly migraine days since starting Emgality. Continue Metoprolol- used for a-fib, BP. Previous migraine prevention trials: Amitriptyline caused hives For acute migraine tx: Patient again advised to start Nurtec ODT 75 mg q.d. p.r.n. prior authorization has been approved. May take Nurtec with Tylenol 650-1000 mg p.o. q.4-6 hours p.r.n. (max 3000 mg per day), goal is not to exceed 15 days per month of use. Previous acute migraine treatment trials: Sumatriptan- unsure of affect. Acute migraine treatment Contraindications: All triptans due to the atrial fibrillation diagnosis Lidia mejia home consult note paperwork completed with plan as above Follow-up in 6 months or sooner as needed Orders: Referrals Podiatry Referral R26.9 - Unspecified abnormalities of gait and mobility Medications: Changed From rimegepant (Nurtec ODT) 75 mg PO ONCE 30 days PRN 16 tabs 6RF migraine headache MDD 1 tab G43.009 - Migraine without aura, not intractable, without status migrainosus To rimegepant (Nurtec ODT) take at onset of migraine headache 75 mg PO ONCE PRN 16 tabs 6RF migraine headache 30 days MDD 1 tab G43.009 - Migraine without aura, not intractable, without status migrainosus Coding Level of Care Code Est Pt Level 4 (98015) Complex EM visit Add On G2211 Diagnoses Parkinsonism, unspecified Parkinsonism type G20.C Parkinsonism type: unspecified Gait difficulty R26.9 Tardive dyskinesia G24.01 Migraine without aura and without status migrainosus, not intractable G43.009 Status migrainosus presence: without status migrainosus Intractability: not intractable
--- OUTSIDE RECORDS SUMMARY | 2025-05-20 09:48 | XMS_ITS | Clinical Summary ---
Author Organization [address] [facility] Address [address] [place] [address] Phone Care Team Providers Care Senior Group Manager Name Role Phone Surinder Zeng Primary Care Provider [phone] Encounters Date Type Department Care Team Description 03/24/2025 Lab Requisition [facility] - Main Lab [address] [place] [address] Surinder Zeng PA Vitamin D deficiency, unspecified from Last 3 Months Social History Tobacco [...] Panel) 09/17/2024 Colorectal Cancer Screening: Colonoscopy 09/17/2024 Falls Risk Assessment 09/17/2024 Hepatitis C Screening 09/17/2024 Medicare Annual Wellness Visit 09/17/2024 Osteoporosis Screening (Bone Density Screening) 09/17/2024 Social Influencers of Health Screening 09/17/2024 Depression Screening 10/08/2024 RSV Immunization Adult Patie nts (1 - 1-dose 75+ series) 2024 Influenza Vaccine (#1) 2025 HIB Vaccines Aged Out No longer [...] Diagnosis Comments VITAMIN D 25 HYDROXY Routine 03/24/2025 7:34 AM EDT Vitamin D deficiency, unspecified CREATINE KINASE Routine 03/24/2025 7:34 AM EDT Vitamin D deficiency, unspecified ALBUMIN Routine 03/24/2025 7:34 AM EDT Vitamin D deficiency, unspecified CALCIUM Routine 03/24/2025 7:34 AM EDT Vitamin D deficiency, unspecified from Last 3 Months Results * Vitamin D 25 hydroxy (03/24/2025 7:34 AM EDT) Vit D, 25-Hydroxy 36.9 30.0 - 80.0 ng/mL LAB CHEMISTRY METHOD 03/24/2025 9:58 AM EDT [facility] Blood Venous blood specimen / Unknown Venipuncture / Unknown 03/24/2025 7:34 AM EDT 03/24/2025 8:11 AM EDT Surinder WOLF LAB BLOOD ORDERABLES Margarita arvizu Result [facility] [address] [place] [address], [place] [phone] * Creatine kinase (03/24/2025 7:34 AM EDT) Total CK 89 22 - 269 unit/L LAB CHEMISTRY METHOD 03/24/2025 9:17 AM EDT [facility] Blood Venous blood specimen / Unknown Venipuncture / Unknown 03/24/2025 7:34 AM EDT 03/24/2025 8:11 AM EDT Surinder WOLF LAB BLOOD ORDERABLES Margarita l Result [facility] [address] [place] [address], [place] [phone] * Calcium (03/24/2025 7:34 AM EDT) Pathologist [facility] Calcium 8.8 8.5 - 10.5 mg/dL LAB CHEMISTRY METHOD 03/24/2025 9:17 AM EDT [facility] Blood Venous blood specimen / Unknown Venipuncture / Unknown 03/24/2025 7:34 AM EDT 03/24/2025 8:11 AM EDT Surinder WOLF LAB BLOOD ORDERABLES Margarita l Result [facility] [address] [place] [address], [place] [phone] * Albumin (03/24/2025 7:34 AM EDT) Albumin 3.5 3.2 - 5.0 g/dL LAB CHEMISTRY METHOD 03/24/2025 9:17 AM EDT [facility] Blood Venous blood specimen / Unknown Venipuncture / Unknown 03/24/2025 7:34 AM EDT 03/24/2025 8:11 AM EDT Surinder WOLF LAB BLOOD ORDERABLES Margarita l Result [facility] [address] [place] [address], from Last 3 Months Insurance MEDICAID - [place] [employer] MEDICARE Member Subscriber Plan / Payer (Ef fective 2024-Present) Name:Pamella Madrid Relation to Subscriber:Self Name:Mercy Pamella A Payer ID:[id number] Group ID:[id number] Type:Not on file Address: [address] [place] [address] Care Teams Senior Group Manager Relationship Specialty Start Date End Date Surinder Zeng PA [facility] [address] [facility] [address] [place] [address] PCP - General Physician Technical Maintenance Technician 09/17/24
== END 2025-05-20 10:15 | disposition home or self-care (01) ==
LOC: HO.HSMS 09:23
PROVIDERS: PCP Family Medicine; Visit Provider Nurse Practitioner Family
DX: G20.C Parkinsonism, unspecified (principal); R26.9 Unspecified abnormalities of gait and mobility; G24.01 Drug induced subacute dyskinesia; G43.009 Migraine without aura, not intractable, without status migrainosus
CPT/HCPCS: 99214; G2211

== ENCOUNTER → 2025-05-20 09:23 | Outpatient (BNVA) | payer OTHER, SELFPAY | PROVIDERS: PCP Family Medicine; Visit Provider Nurse Practitioner Family | DX: G43.009 Migraine without aura, not intractable, without status migrainosus (principal); G20.C Parkinsonism, unspecified; R26.9 Unspecified abnormalities of gait and mobility; G24.01 Drug induced subacute dyskinesia | CPT/HCPCS: 99212 ==